=== PATIENT | male | born 1935 | race Caucasian/White ===

== ENCOUNTER 2016-12-03 20:55 | Inpatient (IN) | payer MEDICARE ==
[~2016-12-03] VITALS: Ht 167.6 cm; Wt 70.5 kg
[2016-12-03] MEDS: CHLORHEXIDINE GLUCONATE 2 % 1 PACK (2 CLOTHS)(taper/protocol) TOP SCH (21:55)
[2016-12-03] MEDS: CHLORHEXIDINE GLUCONATE 2 % 1 PACK (2 CLOTHS)(extra cloths) TOP PRN ×2 (21:55→22:59)
[2016-12-03 22:03] VITALS: BP 141/68; PULSE 83; RESP 20; TEMP 98.6; O2SAT 91
[2016-12-03] MEDS: RESP: ALBUTEROL 2.5 MG/IPRATROPIUM 0.5 MG NEB (PRN) NEB (22:25)
[2016-12-03 22:27] VITALS: O2SAT 90
[2016-12-03 23:00] VITALS: PULSE 83
[2016-12-04] VITALS (20 sets, daily range): BP systolic 113–145; BP diastolic 57–72; PULSE 69–88; RESP 20–22; TEMP 98–98.9; O2SAT 87–96
[2016-12-04 00:33] LABS: C. DIFF EPI 027 PRESUMPTIVE NEGATIVE (NEGATIVE); C. DIFF TOXIN PCR NEGATIVE (NEGATIVE)
[2016-12-04] MEDS: RESP: ALBUTEROL 2.5 MG/IPRATROPIUM 0.5 MG NEB (SCH) NEB ×4 (03:41→20:52)
[2016-12-04] MEDS: CHLORHEXIDINE GLUCONATE 2 % 1 PACK (2 CLOTHS)(taper/protocol) TOP SCH (04:00)
--- NOTE | 2016-12-04 04:05 | HHI.HP ---
[facility] Unknown Admission Diagnosis Diagnoses: Chief Complaint: Not able to give specific complaints Travel History International Travel<30 Days: No Contact w/Intl Traveler <30 Da: No Traveled to Known Affected Are: No History of Present Illness History from patient's daughter at the bedside, and transfer notes from [facility]. Patient was admitted to [facility] around November 25, 2016. He was transferred to our hospital last night December 03, 2016. Patient's daughter reported that patient was being managed there for COPD exacerbation with pneumonia. He was also requiring high FiO2 over there for his treatment. She states that he was usually on 10 L nasal cannula. At one point, in the beginning of his stay there, after he received Tessalon Perles for cough, he desaturated quite a bit that he ended up on BiPAP. She reports that also last night, he was saturating around 95-98% initially. He then had another type of cough medicine and ended up desaturating again. He was therefore briefly on BiPAP again. However prior to transfer to our hospital, they were in 4 to many his saturations do a decent level which is 5 L nasal cannular. Patient daughter was curious as to why he had pneumonia. She states that at the [facility] where he resides in [place], several residents where sick with pneumonia and had to be hospitalized. She is unsure whether he caught pneumonia from that. She also was worried about aspiration because he did have 3 times hospitalization for aspiration pneumonia when he was living on his own at another state before moving down to [place] with his daughter. She states that she has had trouble convincing staff members at [facility] to put him on the correct diet consistency. She is questioning whether he had aspiration episodes. Patient also had history of hiatal hernia which is about 4 cm per EGD report. This EGD was done during the hospitalization at [facility]. There was other findings of esophagitis and esophageal diverticulum. Daughter also reported that patient has quite significant hearing impairment. However when she took him to an ENT doctor for evaluation, it was found that he has quite a bit of fluid accumulation in his inner ears and was treated with steroids. She states that after a few days courses of steroids, his hearing would come back. Because of this, he was actually planned to have surgery with ENT doctor. She believes this was for eustachian tubes. However Patient's this surgery was delayed because of his current acute illness. She states that while being hospitalized at [facility], his hearing has gotten worse as well. She is wondering whether his pneumonia is related to these chronic fluid accumulation in his ears with sinus symptoms. Daughter also stated that patient was having severe diarrhea while at [facility]. This happened after getting antibiotics. She stated that she was told it smells like C. difficile as well. She stated he was receiving clindamycin. Patient was not having any Calles catheter there. He was urinating spontaneously. Patient daughter reports that patient's blood pressure was somewhat low borderline over there. However he was not requiring any vasopressors. Patient has history of dementia. He was on Namenda/Aricept combination medicine. She states that these medications were held initially while in hospital. This was resumed only about a day ago or so. She also reports that patient had echocardiogram and CT pulmonary angiogram there. As for as she knows, no abnormal findings. Review of Systems ROS Limitations: Altered Mental Status (patient himself is unable to give review of system.) Past Family Social History Past Medical History Hypertension Hyperlipidemia Dementia BPH COPDon home oxygen 3 L when necessary Hiatal hernia Esophagitis Esophageal diverticulum History of aspiration pneumonia Chronic fluid accumulation in his earswas evaluated by ENT previously. Improved with steroid course. Was planned to have surgery as well. Arthritis Past Surgical History Right hip surgery Reported Medications Patient's medications list sent from [facility] reviewed. Was also a list from the [facility] in chart which was reviewed. Allergies: Uncoded Allergies: cough medicines (Adverse Reaction, Severe, 12/03/16) reactio is mainly made o2 sat go down Family History Denies family history of medical issues Social History used to smoke for about 50yrs no etoh or drug abuse lives at [facility], D's - in [place] Physical Exam Vital Signs Vital Signs Date Time Temp Pulse Resp B/P Pulse Ox O2 Delivery O2 Flow Rate FiO2 12/04/16 02:03 70 20 145/68 93 12/04/16 02:00 70 12/04/16 00:00 69 20 128/62 12/04/16 00:00 83 12/03/16 23:00 83 3/23/17 22:27 90 Simple Mask 7.00 12/03/16 22:03 98.6 83 20 141/68 91 Physical Exam GENERAL: This is a well-nourished, well-developed patient, in no apparent distress.Pleasantly confused, kept asking for time and trying to remember my name; coughing quite a bit, with yellowish productive sputum. Desaturates to about 85% during coughing episodes SKIN: No rashes, ecchymoses or lesions. tactile fever HEAD: Atraumatic. Normocephalic. EYES: No scleral icterus. No injection or drainage. ENT: Nose without bleeding, purulent drainage or septal hematoma. Airway patent.. NECK: Trachea midline. No JVD. Supple, nontender, no meningeal signs. CARDIOVASCULAR: Regular rate and rhythm without murmurs, gallops, or rubs. RESPIRATORY: bilateral good air entry, minimal expiratory wheezing GASTROINTESTINAL: Abdomen soft, non-tender, nondistended. No guarding. MUSCULOSKELETAL: Extremities without clubbing, cyanosis, or edema.. No calf tenderness. NEUROLOGICAL: Awake, pleasantly confused,. Motor and sensory grossly within normal limits. Normal speech. Laboratory Laboratory Tests Test 12/03/16 12/03/16 21:15 22:20 Nasal Screen MRSA (PCR) NEGATIVE Stool C. difficile Toxin (PCR) NEGATIVE Stl C. difficile Toxin PRESUMPTIVE Epiderm 027 NEGATIVE Imaging Last 48 hours Impressions Chest X-Ray 12/04/16 0000 Signed Impressions: Service Date/Time: Sunday, December 04, 2016 04:39 - CONCLUSION: Bibasilar consolidation more pronounced on the left. Alberto Mirza Jr., MD Assessment and Plan Problem List: (1) Pneumonia ICD Code: J18.9 Status: Acute (2) Diarrhea ICD Code: R19.7 Status: Acute (3) Dysphagia ICD Code: R13.10 Status: Acute (4) Hiatal hernia ICD Code: K44.9 Status: Acute Assessment and Plan Impression: Pneumoniaaspiration pneumonia versus healthcare associated pneumonia in a patient who lives in [place]. Was treated with antibiotics for past 7 days at [facility]. Recurrent ear fluid accumulation versus infectionsleading to hearing impairment was initially supposed to undergo surgery and this was delayed due to hospitalization. Diarrheathe patient with recent antibiotics used in hospitalization. Rule out C. difficile Relative hypotensionper patient's daughter's report. Likely secondary to diarrhea. Possible aspiration versus acid reflux symptoms. Had recent EGD while at [facility]. Revealed hiatal hernia of 4 cm, esophagitis, esophageal diverticulum. Dysphagia Hypertension Hyperlipidemia Dementia BPH COPDon home oxygen 3 L when necessary Hiatal hernia Esophagitis Esophageal diverticulum History of aspiration pneumonia Chronic fluid accumulation in his earswas evaluated by ENT previously. Improved with steroid course. Was planned to have surgery as well. Arthritis Plan: Continue oxygen supplementation. With switch to 6 L nasal cannula and try with humidified air. Target O2 sats will be around 90-91%. Watch for CO2 retention. Will avoid sedatives as patient's orders given history that patient does get low O2 sats and required BiPAP for taking some cough medicines while at [facility]. Nebulizer treatments. Patient actually got better after nebulizers and was able to expectorate sputum. Sputum cultures to be sent. In terms of antibiotics, patient was receiving cefepime and clindamycin at [facility]. At this point, I would continue cefepime. We'll adjust with sputum culture results. Repeat chest x-ray today. Reviewed personally. Revealed bilateral pulmonary infiltrates. No pneumothorax. No failure. Would obtain speech and swallow evaluation. For now and keep patient on pured diet with nectar thick liquids. PPI. Ranitidine. I would also consult ENT to evaluate further for his sinus symptoms/recurrent fluid accumulation in his years. These likely could be contributing to his pneumonia. Stool for C. difficile. Stool for cultures. Question whether patient's diarrhea is also caused by his dementia medications such as Namenda and Aricept. I have not started these back yet. Pt takes Namzaric 10/07 per notes. Restart visions home meds. Will monitor BP closely. DVT prophylaxiswith Lovenox. GI prophylaxison pantoprazole. Code Status Full code. Discussed with daughter. Discussed Condition With Patient, daughter at the bedside, patient's nurse Physician Certification 2 Midnight Certification Type: Admission for Inpatient Services Order for Inpatient Services The services are ordered in accordance with Medicare regulations or non- Medicare payer requirements, as applicable. In the case of services not specified as inpatient-only, they are appropriately provided as inpatient services in accordance with the 2-midnight benchmark. Estimated LOS (days): 3 days is the estimated time the patient will need to remain in the hospital, assuming treatment plan goals are met and no additional complications. Post-Hospital Plan: Not yet determined Katherin Mccarthy MD Dec 04, 2016 04:05
--- NOTE | 2016-12-04 05:43 | RADRPT ---
EXAM DATE/TIME: 12/04/2016 04:39 [facility] COMPARISON: No previous studies available for comparison. INDICATIONS : Evaluate for pneumonia. MEDICAL HISTORY : Hypertension. Chronic obstructive pulmonary disease. SURGICAL HISTORY : None. ENCOUNTER: Initial ACUITY: 1 day PAIN SCORE: Non-responsive. LOCATION: Bilateral chest FINDINGS: A single portable frontal view the chest shows areas of bibasilar consolidation more pronounced on th e left. This obscures the left dome of the diaphragm. No effusions. Heart is normal in size. Bony str uctures are unremarkable. CONCLUSION: Bibasilar consolidation more pronounced on the left. Alberto Mirza Jr., MD on December 04, 2016 at 5:40 Board Certified Radiologist. This report was verified electronically.
[2016-12-04 05:55] LABS: AUTOMATED NEUTROPHIL # 6.4 TH/MM3 (1.8-7.7); BASOPHIL % 0.1 % (0.0-2.0); HEMATOCRIT 39.7 % (39.0-51.0); LYMPH % 14.1 % (9.0-44.0); LYMPHOCYTE # 1.1 TH/MM3 (1.0-4.8); MEAN CELL VOLUME 93.6 FL (80.0-100.0); MEAN CORPUSCULAR HEMOGLOBIN 31.7 PG (27.0-34.0); MEAN CORPUSCULAR HGB CONC 33.9 % (32.0-36.0); MONO % 6.7 % (0.0-8.0); NEUT % 79.1 % (16.0-70.0); PLATELET COUNT 201 TH/MM3 (150-450); RED BLOOD COUNT 4.25 MIL/MM3 (4.50-5.90); RED CELL DISTRIBUTION WIDTH 13.6 % (11.6-17.2); WHITE BLOOD COUNT 8.1 TH/MM3 (4.0-11.0)
[2016-12-04 06:08] LABS: INTERNATIONAL NORMALIZED RATIO 1.1 RATIO; PROTHROMBIN TIME - PATIENT 12.7 SEC (9.8-11.6)
[2016-12-04 06:21] LABS: BICARBONATE 30.1 MEQ/L (21.0-32.0); POTASSIUM 3.5 MEQ/L (3.5-5.1)
[2016-12-04 06:28] LABS: HEMO FLAGS AUTO DIFF
[2016-12-04 07:12] LABS: BANDS 1 % (0-6); NEUTROPHIL # MANUAL DIFF 6.3 TH/MM3 (1.8-7.7); PLATELET ESTIMATE SMEAR NORMAL (NORMAL); PLATELET MORPHOLOGY NORMAL (NORMAL); POLYS (SEG NEUTROPHILS) 77 % (16-70); WBC DIFF SAMPLE 100
[2016-12-04 07:13] LABS: SCAN/DIFF FINAL DIFF MANUAL
[2016-12-04] MEDS: amLODIPine BESYLATE 5 MG TAB PO SCH (08:21)
[2016-12-04] MEDS: DIVALPROEX SODIUM E.R. 250 MG TAB PO SCH (08:21)
[2016-12-04] MEDS: LACTOBACILLUS ACIDOPHILUS TAB PO SCH ×3 (08:21→18:00)
[2016-12-04] MEDS: FAMOTIDINE 20 MG TAB PO SCH ×2 (08:22→19:34)
[2016-12-04] MEDS: ESCITALOPRAM OXALATE 10 MG TAB PO SCH (08:26)
[2016-12-04] MEDS: TAMSULOSIN HCL 0.4 MG CAP PO SCH (08:27)
[2016-12-04] MEDS ORDERED: PILL SPLITTER OTHER PRN (08:30)
[2016-12-04] MEDS: CEFEPIME INJ 2,000 MG in SODIUM CHLORIDE 0.9% INJ 100 ML IV SCH ×2 (09:00→19:33)
[2016-12-04] MEDS: ENOXAPARIN SODIUM 40 MG/0.4 ML SYRINGE SQ SCH (09:00)
--- NOTE | 2016-12-04 14:21 | HHI.PR ---
Addendum to Inpatient Note Addendum Reason: Additional Documentation Additional Information Patient seen and examined. Discussed with his daughter at bedside. He has dementia. She reports it appears that he is becoming more agitated today. He has not been sleeping over the past few days. He still requiring 6 L of oxygen on a nasal cannula. Patient was living in a shelter facility prior to hospital admission. GENERAL: Frail elderly male, demented.. CARDIOVASCULAR: Normal rate and regular rhythm without murmurs, gallops, or rubs. RESPIRATORY: Diminished breath sounds bilaterally. Some coarse rhonchi bilaterally. GASTROINTESTINAL: Abdomen soft, non-tender, non-distended. Normal active bowel sounds MUSCULOSKELETAL: Extremities without cyanosis, or edema. NEURO: Alert to self only. Moves all ext x4 PSYCH: Anxious 81-year-old male admitted for COPD exacerbation and bilateral pneumonia from an outside hospital. We'll continue treatment with IV antibiotics, breathing treatments, supplemental oxygen as needed. He is being treated for healthcare associated pneumonia, will add Levaquin to cefepime. He does have behavioral agitation related to dementia. Her daughter wants to be very cautious with sedating medications. Will order low-dose Haldol to be used as needed only for agitation. Continue Seroquel. Jozef Henning MD Dec 04, 2016 14:21
[2016-12-04] MEDS ORDERED: HALOPERIDOL LACTATE 5 MG/ML AMP IM PRN (14:30)
[2016-12-04] MEDS: LEVOFLOXACIN 750 MG PREMIX INJ 150 ML IV SCH (15:12)
[2016-12-04] MEDS: QUEtiapine FUMARATE 25 MG TAB PO SCH (19:34)
[2016-12-05] VITALS (17 sets, daily range): BP systolic 104–132; BP diastolic 56–61; PULSE 67–111; RESP 20–28; TEMP 98–99.2; O2SAT 78–94
[2016-12-05] MEDS: RESP: ALBUTEROL 2.5 MG/IPRATROPIUM 0.5 MG NEB (SCH) NEB ×4 (04:11→20:50)
[2016-12-05] MEDS: CEFEPIME INJ 2,000 MG in SODIUM CHLORIDE 0.9% INJ 100 ML IV SCH ×2 (10:24→19:44)
[2016-12-05] MEDS: LACTOBACILLUS ACIDOPHILUS TAB PO SCH ×3 (10:25→17:33)
[2016-12-05] MEDS: DIVALPROEX SODIUM E.R. 250 MG TAB PO SCH (10:25)
[2016-12-05] MEDS: TAMSULOSIN HCL 0.4 MG CAP PO SCH (10:25)
[2016-12-05] MEDS: ESCITALOPRAM OXALATE 10 MG TAB PO SCH (10:26)
[2016-12-05] MEDS: FAMOTIDINE 20 MG TAB PO SCH ×2 (10:27→19:44)
[2016-12-05] MEDS: ENOXAPARIN SODIUM 40 MG/0.4 ML SYRINGE SQ SCH (10:27)
[2016-12-05] MEDS: amLODIPine BESYLATE 5 MG TAB PO SCH (10:27)
--- NOTE | 2016-12-05 11:22 | HHI.PR ---
Subjective Remarks Discussed with the patient's daughter and RN. He had a nosebleed earlier this morning. Otherwise he reports that his breathing is better. He is still requiring 5 L of oxygen on nasal cannula. Objective Vitals Vital Signs Date Time Temp Pulse Resp B/P Pulse Ox O2 Delivery O2 Flow Rate FiO2 12/05/16 06:03 98.9 78 20 132/61 12/05/16 06:00 69 12/05/16 04:00 67 12/05/16 02:03 68 94 12/05/16 02:00 80 12/05/16 00:00 80 12/04/16 22:03 98.9 81 20 132/61 87 12/04/16 22:00 82 12/04/16 20:55 91 Nasal Cannula 6.00 12/04/16 20:00 81 12/04/16 18:03 98.6 88 22 113/72 96 12/04/16 18:00 86 12/04/16 16:00 86 12/04/16 14:03 98.2 77 20 113/57 96 12/04/16 14:00 86 12/04/16 12:00 86 I/O 12/04/16 12/04/16 12/04/16 12/05/16 12/05/16 12/05/16 07:00 15:00 23:00 07:00 15:00 23:00 Intake Total 250 ml 582 ml 200 ml 295 ml Output Total 3 ml Balance 250 ml 579 ml 200 ml 295 ml Intake Oral 250 ml 480 ml 200 ml 200 ml IV Total 102 ml 95 ml Output Stool Total 3 ml # Voids 3 2 2 2 # Bowel Movements 3 Result Diagram: 12/04/16 0422 12/04/16 0422 Imaging Last Impressions Chest X-Ray 12/04/16 0000 Signed Impressions: Service Date/Time: Sunday, December 04, 2016 04:39 - CONCLUSION: Bibasilar consolidation more pronounced on the left. Alberto Mirza Jr., MD Objective Remarks GENERAL: Frail elderly male, demented.. CARDIOVASCULAR: Normal rate and regular rhythm without murmurs, gallops, or rubs. ENT: There is dried blood in the right nares. Airway is clear RESPIRATORY: Diminished breath sounds bilaterally. Infant and diffuse rhonchi. Otherwise clear to auscultation. No wheezing. GASTROINTESTINAL: Abdomen soft, non-tender, non-distended. Normal active bowel sounds MUSCULOSKELETAL: Extremities without cyanosis, or edema. NEURO: Alert to self only. Moves all ext x4 PSYCH: Calm A/P Problem List: (1) Pneumonia ICD Code: J18.9 Status: Acute (2) Diarrhea ICD Code: R19.7 Status: Acute (3) Dysphagia ICD Code: R13.10 Status: Acute (4) Hiatal hernia ICD Code: K44.9 Status: Acute Assessment and Plan 81-year-old male admitted for COPD exacerbation and bilateral pneumonia from an outside hospital. Respiratory failure secondary to Pneumonia: Still requiring 5 L of oxygen. At risk for decompensation given age and comorbid conditions. We'll continue treatment with IV antibiotics, breathing treatments, supplemental oxygen as needed. He is being treated for healthcare associated pneumonia, continue Levaquin and cefepime. Nosebleed: X1, probably related to drying effect of oxygen via nasal cannula. Advised nursing to use the mask as tolerated. - Will add Flonase to help decrease inflammation Dementia with behavioral disturbances:. Her daughter wants to be very cautious with sedating medications. - Low-dose Haldol to be used as needed only for agitation. Continue Seroquel and Depakote. Recurrent ear fluid accumulation versus infectionsleading to hearing impairment was initially supposed to undergo surgery and this was delayed due to hospitalization. ENT was consulted from the ED. Dysphagia: Improved. Had recent EGD while at [facility]. Revealed hiatal hernia of 4 cm, esophagitis, esophageal diverticulum. - Speech therapy following. Tolerating his diet. BPH: Continue Flomax. GI prophylaxis: Pepcid. DVT PPx: Lovenox Discussed with the patient's daughter at length. All questions answered. Discharge Planning Continue care in the ICU. Jozef Henning MD Dec 05, 2016 11:22
[2016-12-05] MEDS: FLUTICASONE PROPIONATE 50 MCG/ACT 16 GM NASAL SPRAY NASAL SCH ×2 (13:35→19:37)
[2016-12-05] MEDS: LEVOFLOXACIN 750 MG PREMIX INJ 150 ML IV SCH (16:21)
[2016-12-05] MEDS: CHLORHEXIDINE GLUCONATE 2 % 1 PACK (2 CLOTHS)(taper/protocol) TOP SCH (19:37)
[2016-12-05] MEDS: QUEtiapine FUMARATE 25 MG TAB PO SCH (19:44)
[2016-12-05] MEDS: RESP: ALBUTEROL 2.5 MG/IPRATROPIUM 0.5 MG NEB (PRN) NEB (23:40)
[2016-12-05 23:59] LABS: BLOOD GAS BASE EXCESS 0.5 mmol/L (-2-2); BLOOD GAS CARBOXYHEMOGLOBIN 0.7 % (0-4); BLOOD GAS HCO3 26 mmol/L (22-26); BLOOD GAS O2 HGB SATURATION 91 % (90-100); BLOOD GAS OXYGEN CONTENT 19.8 Vol % (12.0-20.0); BLOOD GAS PCO2 52 mmHg (38-42); BLOOD GAS PO2 81 mmHg (61-120); BLOOD GAS TOTAL HGB 15.4 G/DL (12.0-16.0); TEMP CORR TO 98.6
[2016-12-06] VITALS (19 sets, daily range): BP systolic 92–189; BP diastolic 55–87; PULSE 70–99; RESP 20–28; TEMP 97.8–98.6; O2SAT 87–100
[2016-12-06] LABS: CRITICAL VALUE YES; DRAW SITE LT RADIAL; FIO2 100 %; NUMBER OF ARTERIAL PUNCTURES 1; OXYGEN DEVICE BIPAP; STAT YES; ULNAR PULSE PRESENT; VENT SETTINGS IPAP15/EPAP8
--- NOTE | 2016-12-06 00:18 | RADRPT ---
EXAM DATE/TIME: 12/05/2016 23:48 [facility] COMPARISON: CHEST SINGLE AP, December 04, 2016, 4:39. INDICATIONS : Respiratory distress. MEDICAL HISTORY : None. SURGICAL HISTORY : None. ENCOUNTER: Subsequent ACUITY: 2 days PAIN SCORE: Non-responsive. LOCATION: Bilateral chest FINDINGS: A single portable frontal view of the chest shows resolution of the bibasilar consolidations. There i s an interstitial prominence to the entire left lung which is a new finding. Linear atelectasis withi n the right lung base. No effusions. Heart is normal in size. High riding humeral heads bilaterally. CONCLUSION: Resolution of the basilar consolidations. Diffuse interstitial prominence now seen throughout the lef t lung. Alberto Mirza Jr., MD on December 06, 2016 at 0:15 Board Certified Radiologist. This report was verified electronically.
[2016-12-06] MEDS: RESP: ALBUTEROL 2.5 MG/IPRATROPIUM 0.5 MG NEB (SCH) NEB ×5 (03:39→23:46)
[2016-12-06 06:40] LABS: POTASSIUM 3.8 MEQ/L (3.5-5.1)
[2016-12-06 07:05] LABS: HEMATOCRIT 40.8 % (39.0-51.0); MEAN CELL VOLUME 93.6 FL (80.0-100.0); MEAN CORPUSCULAR HEMOGLOBIN 31.5 PG (27.0-34.0); MEAN CORPUSCULAR HGB CONC 33.7 % (32.0-36.0); PLATELET COUNT 180 TH/MM3 (150-450); RED BLOOD COUNT 4.36 MIL/MM3 (4.50-5.90); RED CELL DISTRIBUTION WIDTH 13.7 % (11.6-17.2); REVIEW FLAG FINAL; WHITE BLOOD COUNT 12.7 TH/MM3 (4.0-11.0)
[2016-12-06] MEDS: FLUTICASONE PROPIONATE 50 MCG/ACT 16 GM NASAL SPRAY NASAL SCH ×2 (10:39→21:00)
[2016-12-06] MEDS: CEFEPIME INJ 2,000 MG in SODIUM CHLORIDE 0.9% INJ 100 ML IV SCH ×2 (10:39→20:18)
[2016-12-06] MEDS: FAMOTIDINE 20 MG TAB PO SCH ×2 (10:40→20:18)
[2016-12-06] MEDS: DIVALPROEX SODIUM E.R. 250 MG TAB PO SCH (10:40)
[2016-12-06] MEDS: amLODIPine BESYLATE 5 MG TAB PO SCH (10:40)
[2016-12-06] MEDS: ESCITALOPRAM OXALATE 10 MG TAB PO SCH (10:40)
[2016-12-06] MEDS: TAMSULOSIN HCL 0.4 MG CAP PO SCH (10:40)
[2016-12-06] MEDS: LACTOBACILLUS ACIDOPHILUS TAB PO SCH ×3 (10:40→17:22)
[2016-12-06] MEDS: ENOXAPARIN SODIUM 40 MG/0.4 ML SYRINGE SQ SCH (10:41)
[2016-12-06] MEDS: LEVOFLOXACIN 750 MG PREMIX INJ 150 ML IV SCH (14:03)
[2016-12-06] MEDS ORDERED: DEXTROSE 50% IN WATER 50 ML VIAL(D50) IV PUSH PRN (15:30)
[2016-12-06] MEDS ORDERED: GLUCAGON 1 MG/ML VIAL OTHER PRN (15:30)
[2016-12-06 15:33] LABS: BLOOD GAS BASE EXCESS 3.6 mmol/L (-2-2); BLOOD GAS CARBOXYHEMOGLOBIN 1.6 % (0-4); BLOOD GAS HCO3 27 mmol/L (22-26); BLOOD GAS METHEMOGLOBIN 1.1 % (0-2); BLOOD GAS O2 HGB SATURATION 82 % (90-100); BLOOD GAS OXYGEN CONTENT 15.4 Vol % (12.0-20.0); BLOOD GAS PCO2 34 mmHg (38-42); BLOOD GAS PO2 51 mmHg (61-120); BLOOD GAS TOTAL HGB 13.3 G/DL (12.0-16.0); TEMP CORR TO 98.6
[2016-12-06 15:34] LABS: CRITICAL VALUE YES
[2016-12-06] MEDS: methylPREDNISolone SOD SUCC 40 MG/1 ML VIAL IV PUSH SCH ×2 (15:43→20:18)
[2016-12-06] MEDS: SODIUM CHLOR 0.9% 1000 ML INJ 1,000 ML IV SCH (15:43)
[2016-12-06] MEDS: INSULIN NovoLIN REGULAR SUPPLEMENTAL SCALE SQ SCH ×2 (15:45→20:00)
--- NOTE | 2016-12-06 16:06 | MB ---
cc: NGOC HEBERT M.D. DATE OF CONSULTATION: 12/06/2016. REASON FOR CONSULTATION: HISTORY OF PRESENT ILLNESS: The patient is an 81-year-old male with past medical history of COPD on 3 liters home oxygen p.r.n., hypertension, hyperlipidemia and dementia, benign prostate hypertrophy and history of aspiration pneumonia. He was admitted to [facility] on December 04 after he was transferred from [facility] per the daughter's request for COPD exacerbation and pneumonia. The patient was placed on bronchodilators and broad-spectrum antibiotics. A chest x-ray on admission showed bibasilar consolidation more pronounced on the left. Repeat chest x-ray was performed yesterday which showed resolution of the basilar consolidation. However, diffuse interstitial prominence was noted seen throughout the left lung. The patient had an ABG on BiPAP 15/8 at 100% last night which showed mild acute hypercapnic respiratory and hypoxemic acidosis with a pH of 7.32, CO2 52, pAO2 81, bicarb 26 and saturation of 91%. He was taken off BiPAP early this morning and is currently on 50% Ventimask with saturation of 89% to 90%. The patient is awake and alert. He is out of bed and sitting in chair in mild distress. He is afebrile. Most of the history was obtained from reviewing medical records and from my discussion with the daughter. Patient is a poor historian due to his underlying dementia. He is currently being treated for pneumonia with cefepime and Levaquin.. PAST MEDICAL HISTORY: His past medical history is significant for: 1. COPD on home oxygen PRN. 2. Hypertension. 3. Hyperlipidemia. 4. Dementia. 5. Benign prostate hypertrophy. 6. Hiatal hernia. 7. Esophagitis. 8. History of aspiration pneumonia. 9. Arthritis. PAST SURGICAL HISTORY: Previous right hip surgery. MEDICATIONS: Current medications include: 1. Cefepime. 2. Levaquin. 3. Amlodipine. 4. Depakote. 5. Flonase. 6. Pepcid. 7. Seroquel. 8. Flomax. 9. Lovenox subcutaneous. FAMILY HISTORY: Noncontributory. SOCIAL HISTORY: The patient quit smoking 4 years ago. He used to smoke for about 50 years. No EtOH use. Lives at the assisted living facility. REVIEW OF SYSTEMS: The review of systems is as per the history of present illness, and the rest of the review of systems is unremarkable. PHYSICAL EXAMINATION: GENERAL: An 81-year-old male well-nourished sitting up in a chair in mild distress on 50% VentiMask with saturation of 89% to 90%. VITAL SIGNS: Afebrile with temperature of 98.3, pulse of 95, blood pressure 95/64, saturation 99% on 50% VentiMask. HEAD, EYES, EARS, NOSE, THROAT: Normocephalic and atraumatic. Pupils equal, round and reactive to light and accommodation. Extraocular muscles intact. Conjunctivae are pink. Nonicteric sclerae. Oral mucosa within normal limits. NECK: The neck is supple. No jugular venous distention, adenopathy or thyromegaly. Trachea in the midline. CARDIOVASCULAR: Regular rate and rhythm. Normal S1-S2. No murmurs, rubs or gallops noted. PULMONARY: Bilateral equal air entry with a few coarse breath sounds. Diminished. ABDOMEN: The abdomen is soft, nontender and no distention. Positive bowel sounds. EXTREMITIES: No cyanosis, clubbing or edema. NEUROLOGIC: No focal sensory deficit. LABORATORY DATA: Sodium 137, potassium 3.8, chloride 96, carbon dioxide 30, BUN 13, creatinine 0.87, glucose 96, WBCs 12.7, hemoglobin 13.7, hematocrit 40, platelet count 180,000. INR 1.1. PT 12.7. Sputum culture from December 04 showed normal respiratory alejandra. RADIOGRAPHIC STUDIES: Chest x-ray from yesterday showed resolution of basal consolidation and diffuse interstitial prominence seen throughout the left lung. IMPRESSION: 1. Acute hypercapnic and hypoxemic respiratory failure. 2. COPD exacerbation. 3. Hypertension. 4. Dementia. 5. Hyperlipidemia. 6. History of aspiration pneumonia. 7. History of arthritis. RECOMMENDATIONS: 1. Monitor neuro status closely and avoid any sedatives. 2. Continue with oxygen and maintain saturations above 92%. 3. Bronchodilators in the form of DuoNeb q. 6 plus q. 2 PRN for shortness of breath. In addition, will add Pulmicort nebulizers q. 12, Symbicort 160/4.5 2 + q 12 hours. 4. Start IV steroids in the form of Solu-Medrol 60 milligrams IV q. 8. 5. Noninvasive positive pressure ventilation PRN for respiratory distress. 6. Will obtain a CT pulmonary angiogram of the chest to rule out pulmonary embolism. 7. Will repeat ABG now and if there is any worsening in clinical status or respiratory acidosis, will proceed with intubation and mechanical ventilation. 8. Monitor heart rate and blood pressure closely and maintain MAP greater than 65 mmHg. He is on Norvasc 5 milligrams daily. Will hold given borderline low blood pressure. 9. Monitor renal function, intake and output and electrolyte replacement per protocol. 10. Will place on IV fluids in the form of normal saline at 70 mL/hour. 11. Keep NPO for now until the respiratory status improves. 12. Continue with Pepcid 20 milligrams q. 12. 13. He was evaluated by speech earlier today and was placed on a mechanical soft diet. 14. Continue with antibiotics in the form of Cefepime and Levaquin and monitor for signs of infection, which include fever and WBCs. 15. Sputum culture from December 04 showed normal respiratory alejandra. 16. Will check Strep pneumoniae and Legionella urinary antigens. 17. Monitor CBC. 18. Place on sliding scale insulin with Accu-Chek q. 4 hour for glycemic control as the patient will be on IV steroids. 19. Monitor CBC. 20. GI prophylaxis with Pepcid 20 milligrams q. 12. 21. DVT prophylaxis with SCDs and Lovenox 40 milligrams subcutaneous daily. The case was discussed with the patient's daughter who was present at the bedside and with intensive care unit nursing staff. Further recommendations will be based on the hospital course. Level 4. MD JAIRON Viramontes/TOM /3:26 PM /3:52 PM
[2016-12-06] MEDS ORDERED: IOHEXOL 350 MG/ML 10 ML VIAL (for RAD DIAG) IV ONE (17:01)
--- NOTE | 2016-12-06 17:31 | RADRPT ---
EXAM DATE/TIME: 12/06/2016 16:54 [facility] COMPARISON: No previous studies available for comparison. INDICATIONS : Short of breath. Evaluate for embolism. IV CONTRAST: 70 cc Omnipaque 350 (iohexol) IV RADIATION DOSE: 20.80 CTDIvol (mGy) MEDICAL HISTORY : Hypertension. Hernia. SURGICAL HISTORY : None. ENCOUNTER: Initial ACUITY: 1 day PAIN SCALE: 0/10 LOCATION: Bilateral chest TECHNIQUE: Volumetric scanning of the chest was performed using a pulmonary embolism protocol MIP images were re constructed. Using automated exposure control and adjustment of the mA and/or kV according to patien t size, radiation dose was kept as low as reasonably achievable to obtain optimal diagnostic quality images. FINDINGS: No filling defects identified to suggest pulmonary embolic disease. There is dense consolidation and atelectasis in the left lower lobe and subsegmental airspace disease in the right lower lobe and righ t middle lobe. There is at least partial obstruction left lower lobe bronchus. Minimal patchy opacity in upper lobes. There is trace pleural fluid bilaterally. Trace pericardial fluid. No adenopathy. No acute findings i n the upper abdomen. CONCLUSION: 1. Negative for pulmonary embolus. 2. Dense consolidation left lower lobe with at least partial obstruction of the left lower lobe bronc hus. This could be from mucoid impaction. A single airspace disease in the remainder of the lungs. 3. Partially calcified pleural plaques likely from prior asbestos exposure. Previous left rib fractur es. Max Raymundo MD on December 06, 2016 at 17:23 Board Certified Radiologist. This report was verified electronically.
[2016-12-06] MEDS: RESP: BUDESONIDE 0.5 MG/2 ML NEB NEB SCH (19:33)
[2016-12-06] MEDS: QUEtiapine FUMARATE 25 MG TAB PO SCH (20:18)
[2016-12-06 20:57] LABS: BLOOD GAS BASE EXCESS 2.7 mmol/L (-2-2); BLOOD GAS CARBOXYHEMOGLOBIN 1.3 % (0-4); BLOOD GAS HCO3 26 mmol/L (22-26); BLOOD GAS O2 HGB SATURATION 93 % (90-100); BLOOD GAS OXYGEN CONTENT 17.9 Vol % (12.0-20.0); BLOOD GAS PCO2 37 mmHg (38-42); BLOOD GAS PO2 84 mmHg (61-120); BLOOD GAS TOTAL HGB 13.6 G/DL (12.0-16.0); TEMP CORR TO 98.6
[2016-12-06 20:58] LABS: CRITICAL VALUE NO; DRAW SITE RT RADIAL; FIO2 100 %; NUMBER OF ARTERIAL PUNCTURES 1; STAT NO; ULNAR PULSE PRESENT
[2016-12-06] MEDS: BUDESONIDE-FORMOTEROL 160/4.5 MCG INHALER INH SCH (21:00)
[2016-12-06 23:55] LABS: BLOOD, URINE NEG (NEG); COMMENT (UR) CATH-CULT NOT IND; CULTURE IF INDICATED CATH CULTURE NOT IND; GLUCOSE,URINE NEG (NEG); KETONE, URINE NEG (NEG); NITRITE,URINE NEG (NEG); PH, URINE 7.5 (5.0-8.5); URINE COLOR YELLOW (YELLW/STRAW)
[2016-12-07] VITALS (15 sets, daily range): BP systolic 99–135; BP diastolic 52–67; PULSE 60–88; RESP 18–26; TEMP 97.7–98.3; O2SAT 86–98
[2016-12-07] MEDS: RESP: ALBUTEROL 2.5 MG/IPRATROPIUM 0.5 MG NEB (SCH) NEB ×6 (03:57→23:46)
[2016-12-07] MEDS: CHLORHEXIDINE GLUCONATE 2 % 1 PACK (2 CLOTHS)(taper/protocol) TOP SCH (04:00)
[2016-12-07] MEDS: INSULIN NovoLIN REGULAR SUPPLEMENTAL SCALE SQ SCH ×5 (04:00→16:00)
[2016-12-07 06:53] LABS: DRAW SITE NURSE; STAT NO
[2016-12-07 07:09] LABS: AUTOMATED NEUTROPHIL # 9.5 TH/MM3 (1.8-7.7); BASOPHIL % 0.1 % (0.0-2.0); HEMATOCRIT 39.8 % (39.0-51.0); HEMO FLAGS DIFF FINAL; LYMPH % 7.2 % (9.0-44.0); LYMPHOCYTE # 0.8 TH/MM3 (1.0-4.8); MEAN CELL VOLUME 94.1 FL (80.0-100.0); MEAN CORPUSCULAR HEMOGLOBIN 31.1 PG (27.0-34.0); MEAN CORPUSCULAR HGB CONC 33.1 % (32.0-36.0); MONO % 2.9 % (0.0-8.0); NEUT % 89.8 % (16.0-70.0); PLATELET COUNT 157 TH/MM3 (150-450); RED BLOOD COUNT 4.22 MIL/MM3 (4.50-5.90); RED CELL DISTRIBUTION WIDTH 13.9 % (11.6-17.2); WHITE BLOOD COUNT 10.6 TH/MM3 (4.0-11.0)
[2016-12-07 07:28] LABS: BICARBONATE 28.2 MEQ/L (21.0-32.0); MAGNESIUM 2.4 MG/DL (1.5-2.5); POTASSIUM 4.5 MEQ/L (3.5-5.1)
[2016-12-07] MEDS: RESP: BUDESONIDE 0.5 MG/2 ML NEB NEB SCH ×2 (07:29→19:32)
[2016-12-07] MEDS: SODIUM CHLOR 0.9% 1000 ML INJ 1,000 ML IV SCH ×2 (08:10→20:06)
[2016-12-07] MEDS: DIVALPROEX SODIUM E.R. 250 MG TAB PO SCH (08:36)
[2016-12-07] MEDS: LACTOBACILLUS ACIDOPHILUS TAB PO SCH ×3 (08:36→17:56)
[2016-12-07] MEDS: FAMOTIDINE 20 MG TAB PO SCH ×2 (08:36→21:00)
[2016-12-07] MEDS: ESCITALOPRAM OXALATE 10 MG TAB PO SCH (08:36)
[2016-12-07] MEDS: TAMSULOSIN HCL 0.4 MG CAP PO SCH (08:36)
[2016-12-07] MEDS: CEFEPIME INJ 2,000 MG in SODIUM CHLORIDE 0.9% INJ 100 ML IV SCH (08:37)
[2016-12-07] MEDS: ENOXAPARIN SODIUM 40 MG/0.4 ML SYRINGE SQ SCH (08:39)
[2016-12-07] MEDS: BUDESONIDE-FORMOTEROL 160/4.5 MCG INHALER INH SCH ×2 (08:42→21:00)
[2016-12-07] MEDS: FLUTICASONE PROPIONATE 50 MCG/ACT 16 GM NASAL SPRAY NASAL SCH ×2 (08:43→21:00)
--- NOTE | 2016-12-07 08:45 | HHI.CCPN ---
Subjective Remarks/Hospital Course The patient is an 81-year-old male with past medical history of COPD on 3 liters home oxygen p.r.n., hypertension, hyperlipidemia and dementia, benign prostate hypertrophy and history of aspiration pneumonia. He was admitted to [facility] on December 04 after he was transferred from [facility] per the daughter's request for COPD exacerbation and pneumonia. The patient was placed on bronchodilators and broad-spectrum antibiotics. A chest x-ray on admission showed bibasilar consolidation more pronounced on the left. Repeat chest x-ray was performed yesterday which showed resolution of the basilar consolidation. However, diffuse interstitial prominence was noted seen throughout the left lung. The patient had an ABG on BiPAP 15/8 at 100% last night which showed mild acute hypercapnic respiratory and hypoxemic acidosis with a pH of 7.32, CO2 52, pAO2 81, bicarb 26 and saturation of 91%. He was taken off BiPAP early this morning and is currently on 50% Ventimask with saturation of 89% to 90%. The patient is awake and alert. He is out of bed and sitting in chair in mild distress. He is afebrile. Most of the history was obtained from reviewing medical records and from my discussion with the daughter. Patient is a poor historian due to his underlying dementia. He is currently being treated for pneumonia with cefepime and Levaquin. 12/07 Patient was on BIPAP 10/5 with 40% FIO2 overnight. CTA chest showed no PE. Objective Vital Signs Date Time Temp Pulse Resp B/P Pulse Ox O2 Delivery O2 Flow Rate FiO2 12/07/16 06:00 60 12/07/16 04:00 97.7 21 135/67 94 12/07/16 04:00 Bi-Pap 40 12/05/16 20:50 6.00 Intake and Output 12/06/16 12/06/16 12/07/16 08:00 16:00 00:00 Intake Total 700 ml 942 ml 160 ml Output Total 900 ml 400 ml Balance -200 ml 542 ml 160 ml Result Diagram: 12/07/1651112/07/16511 Other Results Laboratory Tests Test 12/06/16 12/06/16 12/06/16 12/07/16 15:28 20:51 23:20 05:12 Blood Gas Puncture Site NURSE RT RADIAL Blood Gas Patient Temperature 98.6 98.6 Blood Gas HCO3 27 mmol/L 26 mmol/L Blood Gas Base Excess 3.6 mmol/L 2.7 mmol/L Blood Gas Oxygen Saturation 82 % 93 % Arterial Blood pH 7.51 7.47 Arterial Blood Partial 34 mmHg 37 mmHg Pressure CO2 Arterial Blood Partial 51 mmHg 84 mmHg Pressure O2 Arterial Blood Oxygen Content 15.4 Vol % 17.9 Vol % Arterial Blood 1.6 % 1.3 % Carboxyhemoglobin Arterial Blood Methemoglobin 1.1 % 1.0 % Blood Gas Hemoglobin 13.3 G/DL 13.6 G/DL Oxygen Delivery Device BIPAP Blood Gas Inspired Oxygen 100 % Urine Color YELLOW Urine Turbidity CLEAR Urine pH 7.5 Urine Specific [place] 1.027 Urine Protein TRACE mg/dL Urine Glucose (UA) NEG mg/dL Urine Ketones NEG mg/dL Urine Occult Blood NEG Urine Nitrite NEG Urine Bilirubin NEG Urine Urobilinogen LESS THAN 2.0 MG/DL Urine Leukocyte Esterase NEG Urine RBC LESS THAN 1 /hpf Urine WBC LESS THAN 1 /hpf Microscopic Urinalysis Comment CATH-CULT NOT IND White Blood Count 10.6 TH/MM3 Red Blood Count 4.22 MIL/MM3 Hemoglobin 13.1 GM/DL Hematocrit 39.8 % Mean Corpuscular Volume 94.1 FL Mean Corpuscular Hemoglobin 31.1 PG Mean Corpuscular Hemoglobin 33.1 % Concent Red Cell Distribution Width 13.9 % Platelet Count 157 TH/MM3 Mean Platelet Volume 8.0 FL Neutrophils (%) (Auto) 89.8 % Lymphocytes (%) (Auto) 7.2 % Monocytes (%) (Auto) 2.9 % Eosinophils (%) (Auto) 0.0 % Basophils (%) (Auto) 0.1 % Neutrophils # (Auto) 9.5 TH/MM3 Lymphocytes # (Auto) 0.8 TH/MM3 Monocytes # (Auto) 0.3 TH/MM3 Eosinophils # (Auto) 0.0 TH/MM3 Basophils # (Auto) 0.0 TH/MM3 CBC Comment DIFF FINAL Differential Comment Sodium Level 138 MEQ/L Potassium Level 4.5 MEQ/L Chloride Level 101 MEQ/L Carbon Dioxide Level 28.2 MEQ/L Anion Gap 9 MEQ/L Blood Urea Nitrogen 17 MG/DL Creatinine 0.89 MG/DL Estimat Glomerular Filtration 82 ML/MIN Rate Random Glucose 136 MG/DL Calcium Level 8.6 MG/DL Phosphorus Level 2.6 MG/DL Magnesium Level 2.4 MG/DL Imaging Last Impressions CT Angiography 12/06/16 0000 Signed Impressions: Service Date/Time: Tuesday, December 06, 2016 16:54 - CONCLUSION: 1. Negative for pulmonary embolus. 2. Dense consolidation left lower lobe with at least partial obstruction of the left lower lobe bronchus. This could be from mucoid impaction. A single airspace disease in the remainder of the lungs. 3. Partially calcified pleural plaques likely from prior asbestos exposure. Previous left rib fractures. Max Raymundo MD Chest X-Ray 12/05/16 0000 Signed Impressions: Service Date/Time: Monday, December 05, 2016 23:48 - CONCLUSION: Resolution of the basilar consolidations. Diffuse interstitial prominence now seen throughout the left lung. Alberto Mirza Jr., MD Objective Remarks GENERAL: Patient is 81 yo lying in bed on BIPAP SKIN: Warm and dry. HEAD: Normocephalic. EYES: No scleral icterus. No injection or drainage. NECK: Supple, trachea midline. No JVD or lymphadenopathy. CARDIOVASCULAR: Regular rate and rhythm without murmurs, gallops, or rubs. RESPIRATORY: Breath sounds equal bilaterally. Few coarse BS GASTROINTESTINAL: Abdomen soft, non-tender, nondistended. MUSCULOSKELETAL: No cyanosis, or edema. Neuro: Awake and alert. A/P Assessment and Plan 1. Acute hypercapnic and hypoxemic respiratory failure. 2. COPD exacerbation. 3. Hypertension. 4. Dementia. 5. Hyperlipidemia. 6. History of aspiration pneumonia. 7. History of arthritis. Plan Neuro: Monitor neuro status closely and avoid any sedatives. Pulm: Continue with oxygen and maintain saturations >92%. Bronchodilators, Pulmicort nebulizers q. 12, Symbicort 160/4.5 2puffs q 12 hours. Solu-Medrol 60 milligrams IV q. 8. NIPPV PRN for respiratory distress. CTA chest: Negative for PE. Dense consolidation left lower lobe with at least partial obstruction of the left lower lobe bronchus. This could be from mucoid impaction. A single airspace disease in the remainder of the lungs. Partially calcified pleural plaques likely from prior asbestos exposure Pulm eval patient is likely high risk for bronch given his resp status. CV: Monitor HR and BP and maintain MAP >65mmHg : Monitor renal function, intake and output and electrolyte replacement per protocol. On NS @ 70 mL/hour. GI: On PO diet, on Pepcid 20 milligrams q. 12. ID: Continue with abx(Cefepime and Levaquin) and monitor for signs of infection ( fever and WBCs). Sputum culture 12/04 normal respiratory alejandra. Follow up on Strep pneumoniae and Legionella urinary antigens. Heme: Monitor CBC. Endo: SSI with Accu-Chek q. 4 hour for glycemic c GI prophylaxis with Pepcid 20 milligrams q. 12. DVT prophylaxis with SCDs and Lovenox 40 mg sq daily Level 3 Yoandy Irvin MD Dec 07, 2016 08:45
[2016-12-07] MEDS: methylPREDNISolone SOD SUCC 40 MG/1 ML VIAL IV PUSH SCH ×3 (09:10→22:00)
[2016-12-07] MEDS: LEVOFLOXACIN 750 MG PREMIX INJ 150 ML IV SCH (14:08)
[2016-12-07] MEDS: RESP: ALBUTEROL 2.5 MG/IPRATROPIUM 0.5 MG NEB (PRN) NEB (20:46)
[2016-12-07] MEDS: QUEtiapine FUMARATE 25 MG TAB PO SCH (21:00)
[2016-12-07 21:15] LABS: BLOOD GAS BASE EXCESS -1.7 mmol/L (-2-2); BLOOD GAS HCO3 23 mmol/L (22-26); BLOOD GAS O2 HGB SATURATION 93 % (90-100); BLOOD GAS OXYGEN CONTENT 18.2 Vol % (12.0-20.0); BLOOD GAS PCO2 41 mmHg (38-42); BLOOD GAS PO2 87 mmHg (61-120); BLOOD GAS TOTAL HGB 13.9 G/DL (12.0-16.0); CRITICAL VALUE NO; TEMP CORR TO 98.6
[2016-12-07 21:16] LABS: DRAW SITE RT RADIAL; FIO2 100 %; NUMBER OF ARTERIAL PUNCTURES 1; OXYGEN DEVICE BIPAP10/5; STAT YES; ULNAR PULSE PRESENT
[2016-12-08] VITALS (17 sets, daily range): BP systolic 107–151; BP diastolic 55–92; PULSE 75–92; RESP 20–25; TEMP 97.7–98.2; O2SAT 89–97
[2016-12-08] MEDS: RESP: ALBUTEROL 2.5 MG/IPRATROPIUM 0.5 MG NEB (SCH) NEB ×6 (03:33→23:39)
[2016-12-08] MEDS: CHLORHEXIDINE GLUCONATE 2 % 1 PACK (2 CLOTHS)(taper/protocol) TOP SCH (04:00)
--- NOTE | 2016-12-08 04:49 | RADRPT ---
EXAM DATE/TIME: 12/08/2016 02:39 [facility] COMPARISON: CHEST SINGLE AP, December 05, 2016, 23:48. INDICATIONS : Shortness of breath. MEDICAL HISTORY : None. SURGICAL HISTORY : None. ENCOUNTER: Subsequent ACUITY: 4 - 6 days PAIN SCORE: Non-responsive. LOCATION: Bilateral chest FINDINGS: There is bilateral mostly basilar airspace disease. No significant effusion. Heart size upper limits normal. No pneumothorax. CONCLUSION: 1. Basilar airspace disease slightly increased from December 05 without significant effusion. No pneumot horax. Max Raymundo MD on December 08, 2016 at 4:45 Board Certified Radiologist. This report was verified electronically.
[2016-12-08 05:41] LABS: AUTOMATED NEUTROPHIL # 14.7 TH/MM3 (1.8-7.7); HEMATOCRIT 38.5 % (39.0-51.0); HEMO FLAGS DIFF FINAL; LYMPH % 5.2 % (9.0-44.0); LYMPHOCYTE # 0.8 TH/MM3 (1.0-4.8); MEAN CELL VOLUME 93.5 FL (80.0-100.0); MEAN CORPUSCULAR HEMOGLOBIN 31.7 PG (27.0-34.0); MEAN CORPUSCULAR HGB CONC 33.9 % (32.0-36.0); MONO % 2.9 % (0.0-8.0); NEUT % 91.9 % (16.0-70.0); PLATELET COUNT 184 TH/MM3 (150-450); RED BLOOD COUNT 4.12 MIL/MM3 (4.50-5.90); RED CELL DISTRIBUTION WIDTH 13.7 % (11.6-17.2)
[2016-12-08] MEDS: methylPREDNISolone SOD SUCC 40 MG/1 ML VIAL IV PUSH SCH ×3 (05:57→20:31)
[2016-12-08 06:02] LABS: BICARBONATE 26.3 MEQ/L (21.0-32.0); MAGNESIUM 2.3 MG/DL (1.5-2.5); POTASSIUM 4.2 MEQ/L (3.5-5.1)
[2016-12-08] MEDS: RESP: BUDESONIDE 0.5 MG/2 ML NEB NEB SCH ×2 (07:34→19:35)
[2016-12-08] MEDS: INSULIN NovoLIN REGULAR SUPPLEMENTAL SCALE SQ SCH ×5 (08:00→20:00)
[2016-12-08] MEDS ORDERED: MAGNESIUM SULFATE INJ 2 GM in SODIUM CHLORIDE 0.9% INJ 96 ML IV PRN (08:15)
[2016-12-08] MEDS ORDERED: POTASSIUM PHOSPHATE MONOBASIC 500 MG TAB PO/TUBE PRN (08:15)
[2016-12-08] MEDS ORDERED: SODIUM PHOSPHATE INJ 30 MMOL in SODIUM CHLOR 0.9% 250 ML INJ 240 ML IV PRN (08:15)
[2016-12-08] MEDS ORDERED: POTASSIUM CHLOR 20 MEQ PREMIX 100 ML IV PRN ×2 (08:15)
[2016-12-08] MEDS ORDERED: MAGNESIUM OXIDE 400 MG TAB PO PRN (08:15)
[2016-12-08] MEDS ORDERED: MAGNESIUM SULFATE INJ 4 GM in SODIUM CHLORIDE 0.9% INJ 92 ML IV PRN (08:15)
[2016-12-08] MEDS ORDERED: POTASSIUM PHOSPHATE INJ 30 MMOL in SODIUM CHLOR 0.9% 250 ML INJ 250 ML IV PRN (08:15)
[2016-12-08] MEDS ORDERED: POTASSIUM CHLOR 40 MEQ PREMIX 100 ML IV PRN ×2 (08:15)
--- NOTE | 2016-12-08 08:18 | HHI.CCPN ---
Subjective Remarks/Hospital Course The patient is an 81-year-old male with past medical history of COPD on 3 liters home oxygen p.r.n., hypertension, hyperlipidemia and dementia, benign prostate hypertrophy and history of aspiration pneumonia. He was admitted to [facility] on December 04 after he was transferred from [facility] per the daughter's request for COPD exacerbation and pneumonia. The patient was placed on bronchodilators and broad-spectrum antibiotics. A chest x-ray on admission showed bibasilar consolidation more pronounced on the left. Repeat chest x-ray was performed yesterday which showed resolution of the basilar consolidation. However, diffuse interstitial prominence was noted seen throughout the left lung. The patient had an ABG on BiPAP 15/8 at 100% last night which showed mild acute hypercapnic respiratory and hypoxemic acidosis with a pH of 7.32, CO2 52, pAO2 81, bicarb 26 and saturation of 91%. He was taken off BiPAP early this morning and is currently on 50% Ventimask with saturation of 89% to 90%. The patient is awake and alert. He is out of bed and sitting in chair in mild distress. He is afebrile. Most of the history was obtained from reviewing medical records and from my discussion with the daughter. Patient is a poor historian due to his underlying dementia. He is currently being treated for pneumonia with cefepime and Levaquin. 12/07 Patient was on BIPAP 10/5 with 40% FIO2 overnight. CTA chest showed no PE. 12/08 No acute events overnight. Afebrile. Off BIPAP. Objective Vital Signs Date Time Temp Pulse Resp B/P Pulse Ox O2 Delivery O2 Flow Rate FiO2 12/08/16 04:00 83 12/08/16 04:00 98.0 20 137/63 89 12/08/16 03:35 50 12/07/16 23:20 Bi-Pap 12/07/16 19:37 5.00 Intake and Output 12/07/16 12/07/16 12/08/16 08:00 16:00 00:00 Intake Total 553 ml 1458 ml 501 ml Output Total 950 ml 675 ml 650 ml Balance -397 ml 783 ml -149 ml Result Diagram: 12/08/16 0416 12/08/16 0416 Other Results Laboratory Tests Test 12/07/16 12/08/16 21:04 04:16 Blood Gas Puncture Site RT RADIAL Blood Gas Patient Temperature 98.6 Blood Gas HCO3 23 mmol/L Blood Gas Base Excess -1.7 mmol/L Blood Gas Oxygen Saturation 93 % Arterial Blood pH 7.36 Arterial Blood Partial 41 mmHg Pressure CO2 Arterial Blood Partial 87 mmHg Pressure O2 Arterial Blood Oxygen Content 18.2 Vol % Arterial Blood 1.0 % Carboxyhemoglobin Arterial Blood Methemoglobin 1.0 % Blood Gas Hemoglobin 13.9 G/DL Oxygen Delivery Device BIPAP10/5 Blood Gas Inspired Oxygen 100 % White Blood Count 16.0 TH/MM3 Red Blood Count 4.12 MIL/MM3 Hemoglobin 13.1 GM/DL Hematocrit 38.5 % Mean Corpuscular Volume 93.5 FL Mean Corpuscular Hemoglobin 31.7 PG Mean Corpuscular Hemoglobin 33.9 % Concent Red Cell Distribution Width 13.7 % Platelet Count 184 TH/MM3 Mean Platelet Volume 8.2 FL Neutrophils (%) (Auto) 91.9 % Lymphocytes (%) (Auto) 5.2 % Monocytes (%) (Auto) 2.9 % Eosinophils (%) (Auto) 0.0 % Basophils (%) (Auto) 0.0 % Neutrophils # (Auto) 14.7 TH/MM3 Lymphocytes # (Auto) 0.8 TH/MM3 Monocytes # (Auto) 0.5 TH/MM3 Eosinophils # (Auto) 0.0 TH/MM3 Basophils # (Auto) 0.0 TH/MM3 CBC Comment DIFF FINAL Differential Comment Sodium Level 136 MEQ/L Potassium Level 4.2 MEQ/L Chloride Level 100 MEQ/L Carbon Dioxide Level 26.3 MEQ/L Anion Gap 10 MEQ/L Blood Urea Nitrogen 18 MG/DL Creatinine 0.97 MG/DL Estimat Glomerular Filtration 74 ML/MIN Rate Random Glucose 159 MG/DL Calcium Level 8.6 MG/DL Phosphorus Level 2.2 MG/DL Magnesium Level 2.3 MG/DL Imaging Last Impressions Chest X-Ray 12/08/16 0600 Signed Impressions: Service Date/Time: Thursday, December 08, 2016 02:39 - CONCLUSION: 1. Basilar airspace disease slightly increased from December 05 without significant effusion. No pneumothorax. Max Raymundo MD CT Angiography 12/06/16 0000 Signed Impressions: Service Date/Time: Tuesday, December 06, 2016 16:54 - CONCLUSION: 1. Negative for pulmonary embolus. 2. Dense consolidation left lower lobe with at least partial obstruction of the left lower lobe bronchus. This could be from mucoid impaction. A single airspace disease in the remainder of the lungs. 3. Partially calcified pleural plaques likely from prior asbestos exposure. Previous left rib fractures. Max Raymundo MD Objective Remarks GENERAL: Patient is 81 yo lying in bed in NAD SKIN: Warm and dry. HEAD: Normocephalic. EYES: No scleral icterus. No injection or drainage. NECK: Supple, trachea midline. No JVD or lymphadenopathy. CARDIOVASCULAR: Regular rate and rhythm without murmurs, gallops, or rubs. RESPIRATORY: Breath sounds equal bilaterally. Few coarse BS GASTROINTESTINAL: Abdomen soft, non-tender, nondistended. MUSCULOSKELETAL: No cyanosis, or edema. Neuro: Awake and alert. A/P Assessment and Plan 1. Acute hypercapnic and hypoxemic respiratory failure. 2. COPD exacerbation. 3. Hypertension. 4. Dementia. 5. Hyperlipidemia. 6. History of aspiration pneumonia. 7. History of arthritis. 8)Calcified pleural plaques likely from prior asbestos exposure Plan Neuro: Monitor neuro status closely and avoid any sedatives. Pulm: Wean down oxygen as js and maintain sats >92%. Bronchodilators, Pulmicort nebulizers q. 12, Symbicort 160/4.5 2puffs q 12 hours. Solu-Medrol 60 milligrams IV q. 8. NIPPV PRN for respiratory distress. CTA chest: Negative for PE. Dense consolidation left lower lobe with at least partial obstruction of the left lower lobe bronchus. This could be from mucoid impaction. A single airspace disease in the remainder of the lungs. Partially calcified pleural plaques likely from prior asbestos exposure Pulm eval patient is likely high risk for bronch given his resp status. CV: Monitor HR and BP and maintain MAP >65mmHg : Monitor renal function, intake and output and electrolyte replacement per protocol. d/c IVF GI: On PO diet, on Pepcid 20 mg q. 12. Check KUB abdomen r/o ileus ID: Continue with abx(Cefepime and Levaquin) and monitor for signs of infection ( fever and WBCs). Sputum culture 12/04 normal respiratory alejandra. Strep pneumoniae and Legionella urinary antigens negative. Heme: Monitor CBC. Endo: SSI with Accu-Chek q. 4 hour for glycemic control GI prophylaxis with Pepcid 20 mg q. 12. DVT prophylaxis with SCDs and Lovenox 40 mg sq daily Level 3 Yoandy Irvin MD Dec 08, 2016 08:18
--- NOTE | 2016-12-08 09:05 | RADRPT ---
EXAM DATE/TIME: 12/08/2016 08:20 [facility] COMPARISON: No previous studies available for comparison. INDICATIONS : Evaluate for ileus. MEDICAL HISTORY : Hypertension. Hernia. SURGICAL HISTORY : None. ENCOUNTER: Initial ACUITY: 1 day PAIN SCORE: 4/10 LOCATION: Abdomen. FINDINGS: 2 portable supine frontal views of the abdomen show gas distended loops of small bowel within the mid abdomen. Colon is gas-filled but normal in caliber. Residual barium is seen within multiple sigmoid d iverticula. Stomach is normal in caliber. The right femoral neck through an intramedullary lance oriana sing old intertrochanteric fracture. Heart is mildly enlarged. CONCLUSION: Mildly dilated small bowel loops. Differential diagnostic considerations include a mild partial obstr uction versus an ileus. Alberto Mirza Jr., MD on December 08, 2016 at 9:02 Board Certified Radiologist. This report was verified electronically.
[2016-12-08] MEDS: TAMSULOSIN HCL 0.4 MG CAP PO SCH (09:55)
[2016-12-08] MEDS: DIVALPROEX SODIUM E.R. 250 MG TAB PO SCH (09:55)
[2016-12-08] MEDS: ESCITALOPRAM OXALATE 10 MG TAB PO SCH (09:55)
[2016-12-08] MEDS: FAMOTIDINE 20 MG TAB PO SCH ×2 (09:56→20:31)
[2016-12-08] MEDS: LACTOBACILLUS ACIDOPHILUS TAB PO SCH ×3 (09:56→18:28)
[2016-12-08] MEDS: BUDESONIDE-FORMOTEROL 160/4.5 MCG INHALER INH SCH (09:57)
[2016-12-08] MEDS: CEFEPIME INJ 2,000 MG in SODIUM CHLORIDE 0.9% INJ 100 ML IV SCH ×3 (09:57→20:31)
[2016-12-08] MEDS: ENOXAPARIN SODIUM 40 MG/0.4 ML SYRINGE SQ SCH (09:58)
[2016-12-08] MEDS: FLUTICASONE PROPIONATE 50 MCG/ACT 16 GM NASAL SPRAY NASAL SCH (11:43)
--- NOTE | 2016-12-08 11:43 | PD.CONS ---
HPI History of Present Illness This is a 81 year old with dementia, COPD, hypertension, and a hx of aspiration pneumonia, who was transferred from [facility] to this facility per the daughter's request for further evaluation and treatment of his pneumonia and COPD. He is currently in the ICU being treated for acute respiratory failure secondary to COPD exacerbation and possible aspiration pneumonia. He was on the BiPAP machine overnight, but is currently on high flow oxygen- in no distress. He is pleasantly confused, but unable to provide any history and therefore the history has been obtained from the daughter who is at the bedside. She reports that he developed abdominal pain with significant reflux and some dry heaving last night. He did not actually vomit. His daughter reports that he has had or bloating than normal over the past few weeks, but reports that he has not had any issues moving his bowels. He recently had an upper endoscopy while at [facility] and according to the daughter this revealed esophagitis, and esophageal diverticulum, and a hiatal hernia. She does not know if he is ever had a colonoscopy He currently denies any abdominal pain, although his daughter reports that he is unable to recognize pain. He ate his breakfast this morning without any difficulty and is drinking chocolate milk and or and orange juice at this time. He is passing liquid/soft stool. He has never had any abdominal surgeries. (Lashell Taveras) PFSH Past Medical History Hypertension Hyperlipidemia Dementia BPH COPD Hiatal hernia Esophagitis Esophageal diverticulum History of aspiration pneumonia Arthritis Past Surgical History Right hip surgery (Lashell Taveras) Uncoded Allergies: cough medicines (Adverse Reaction, Severe, 12/03/16) reactio is mainly made o2 sat go down Medications Allergies Uncoded Allergies Type Severity Reaction Last Updated Verified cough medicines Adverse Reaction Severe 12/03/16 Family History Denies family history of medical issues Social History Quit smoking 5 years ago, used to smoke for about 50yrs no etoh or drug abuse (Lashell Taveras) Review of Systems ROS Difficult to obtain. According to daughter he had dry heaving reflux last night and abdominal pain. Unable to obtain from patient (Lashell Taveras) GI Exam Vitals I&O Vital Signs Date Time Temp Pulse Resp B/P Pulse Ox O2 Delivery O2 Flow Rate FiO2 12/08/16 10:05 90 High Flow Nasal Cannula 25.00 80 12/08/16 09:16 92 Partial Rebreather 12/08/16 04:00 83 12/08/16 04:00 98.0 83 20 137/63 89 12/08/16 03:35 90 50 12/08/16 02:00 79 12/08/16 01:01 91 50 12/08/16 00:00 91 12/08/16 00:00 98.2 85 20 121/68 92 12/07/16 23:20 85 Bi-Pap 50 12/07/16 22:15 95 Bi-Pap 45 12/07/16 22:00 88 12/07/16 21:30 86 Bi-Pap 100 12/07/16 20:40 90 100 12/07/16 20:00 85 12/07/16 20:00 98.3 85 20 99/55 86 12/07/16 19:37 92 Nasal Cannula 5.00 12/07/16 18:00 88 12/07/16 16:00 78 12/07/16 16:00 98.2 78 26 113/64 88 12/07/16 14:00 78 12/07/16 12:00 81 12/07/16 12:00 97.8 81 20 105/58 91 I/O 12/07/16 12/07/16 12/07/16 12/08/16 12/08/16 12/08/16 07:00 15:00 23:00 07:00 15:00 23:00 Intake Total 553 ml 1458 ml 501 ml 473 ml Output Total 950 ml 675 ml 650 ml 500 ml Balance -397 ml 783 ml -149 ml -27 ml Intake Oral 0 ml 720 ml IV Total 553 ml 738 ml 501 ml 473 ml Output Urine Total 950 ml 675 ml 650 ml 500 ml # Bowel Movements 0 1 0 0 Imaging Last Impressions Chest X-Ray 12/08/16 0600 Signed Impressions: Service Date/Time: Thursday, December 08, 2016 02:39 - CONCLUSION: 1. Basilar airspace disease slightly increased from December 05 without significant effusion. No pneumothorax. Max Raymundo MD Abdomen X-Ray 12/08/16 0000 Signed Impressions: Service Date/Time: Thursday, December 08, 2016 08:20 - CONCLUSION: Mildly dilated small bowel loops. Differential diagnostic considerations include a mild partial obstruction versus an ileus. Alberto Mirza Jr., MD CT Angiography 12/06/16 0000 Signed Impressions: Service Date/Time: Tuesday, December 06, 2016 16:54 - CONCLUSION: 1. Negative for pulmonary embolus. 2. Dense consolidation left lower lobe with at least partial obstruction of the left lower lobe bronchus. This could be from mucoid impaction. A single airspace disease in the remainder of the lungs. 3. Partially calcified pleural plaques likely from prior asbestos exposure. Previous left rib fractures. Max Raymundo MD Laboratory Test 12/07/16 12/08/16 21:04 04:16 Blood Gas Puncture Site RT RADIAL Blood Gas Patient Temperature 98.6 Blood Gas HCO3 23 mmol/L Blood Gas Base Excess -1.7 mmol/L Blood Gas Oxygen Saturation 93 % Arterial Blood pH 7.36 Arterial Blood Partial 41 mmHg Pressure CO2 Arterial Blood Partial 87 mmHg Pressure O2 Arterial Blood Oxygen Content 18.2 Vol % Arterial Blood 1.0 % Carboxyhemoglobin Arterial Blood Methemoglobin 1.0 % Blood Gas Hemoglobin 13.9 G/DL Oxygen Delivery Device BIPAP10/5 Blood Gas Inspired Oxygen 100 % White Blood Count 16.0 TH/MM3 Red Blood Count 4.12 MIL/MM3 Hemoglobin 13.1 GM/DL Hematocrit 38.5 % Mean Corpuscular Volume 93.5 FL Mean Corpuscular Hemoglobin 31.7 PG Mean Corpuscular Hemoglobin 33.9 % Concent Red Cell Distribution Width 13.7 % Platelet Count 184 TH/MM3 Mean Platelet Volume 8.2 FL Neutrophils (%) (Auto) 91.9 % Lymphocytes (%) (Auto) 5.2 % Monocytes (%) (Auto) 2.9 % Eosinophils (%) (Auto) 0.0 % Basophils (%) (Auto) 0.0 % Neutrophils # (Auto) 14.7 TH/MM3 Lymphocytes # (Auto) 0.8 TH/MM3 Monocytes # (Auto) 0.5 TH/MM3 Eosinophils # (Auto) 0.0 TH/MM3 Basophils # (Auto) 0.0 TH/MM3 CBC Comment DIFF FINAL Differential Comment Sodium Level 136 MEQ/L Potassium Level 4.2 MEQ/L Chloride Level 100 MEQ/L Carbon Dioxide Level 26.3 MEQ/L Anion Gap 10 MEQ/L Blood Urea Nitrogen 18 MG/DL Creatinine 0.97 MG/DL Estimat Glomerular Filtration 74 ML/MIN Rate Random Glucose 159 MG/DL Calcium Level 8.6 MG/DL Phosphorus Level 2.2 MG/DL Magnesium Level 2.3 MG/DL Date/Time Procedure Status Source Growth 12/06/16 23:20 Legionella Antigen - Final Complete Urine Catheterized Urine PRESUMPTIVE NEGATIVE FOR LEGIONELLA P... 12/06/16 23:20 Streptococcus pneumoniae Antigen (M - Final Complete Urine Catheterized Urine PRESUMPTIVE NEGATIVE FOR STREPTOCOCCU... 12/04/16 04:50 Gram Stain - Final Complete Sputum Expectorated Sputum 12/04/16 04:50 Sputum Culture - Final Complete Sputum Expectorated Sputum HEAVY GROWTH NORMAL RESPIRATORY AYANNA Physical Examination HEENT: Normocephalic; atraumatic; no jaundice. CHEST: Diminished, mildly labored CARDIAC: Regular rate and rhythm with no murmur gallop or rubs. ABDOMEN: Soft, nondistended, nontender; no hepatosplenomegaly; bowel sounds are present in all four quadrants. EXTREMITIES: No clubbing, cyanosis, or edema. SKIN: Normal; no rash; no jaundice. METALLURGICAL INSPECTOR: No focal deficits; alert and oriented times three. (Lashell Taveras) Assessment and Plan Plan ASSESSMENT: - Mild ileus vs. PSBO. Pt had bloating with abdominal pain and dry heaving overnight. KUB (12/08/16)---> Mildly dilated small bowel loops. Differential diagnostic considerations include a mild partial obstruction versus an ileus. He currently has bloating, but no nausea, vomiting, no tenderness on exam, and is passing stool. He tolerated breakfast and is drinking chocolate milk and orange juice without difficulty. He has had 2 loose/soft bowel movements. He was recently hospitalized at [facility] and had EGD 2 weeks ago----> esophagitis, esophageal diverticulum, and hh. She does not know if he has ever had a colonoscopy. This is most likely a mild ileus, as he has never had any abdominal surgeries and is passing stool. Will add Reglan and Miralax. If worsening of symptoms, will make NPO and consider CT. He is currently in no distress. - GERD. Pepcid. Will change to Protonix 40mg IV BID. - Resp. Failure, COPD exacerbation, per [facility] - HTN, Hyperlipidemia, BPH per primary PLAN: - TERRY at this time - If n/v, worsening distention make npo - D/C Pepcid - Protonix 40mg IV BID - Reglan 10mg IV q8h - Miralax 17 gram po daily - KUB in am - Supportive care - Further recommendations to follow based on results of above - Pt seen and examined by Dr. Narayan and myself and this note is written on his behalf (Lashell Taveras) Physician Comments Patient seen and examined Agree with above Continue with current supportive care Monitor labs Patient sitting in bed tolerating liquid diet and abdomen is soft Will await KUB tomorrow for further recommendations but it looks like he probably resolved his ileus or small bowel obstruction (Bhavesh Narayan MD) Lashell Taveras Dec 08, 2016 11:43 Bhavesh Narayan MD Dec 08, 2016 21:56
[2016-12-08] MEDS: POLYETHYLENE GLYCOL 17 GM PKG PO SCH (12:09)
[2016-12-08] MEDS: PANTOPRAZOLE SODIUM 40 MG VIAL IV PUSH SCH (12:10)
[2016-12-08] MEDS: POTASSIUM PHOSPHATE MONOBASIC 500 MG TAB PO PRN ×2 (12:10→19:20)
[2016-12-08] MEDS: metroNIDAZOLE 500 MG INJ 100 ML IV SCH ×2 (16:37→20:33)
[2016-12-08] MEDS: LEVOFLOXACIN 750 MG PREMIX INJ 150 ML IV SCH (16:39)
[2016-12-08] MEDS: METOCLOPRAMIDE HCL 10 MG/2 ML VIAL IV PUSH SCH ×2 (16:41→20:31)
--- NOTE | 2016-12-08 19:43 | MB ---
cc: ANGIE BAEZA DATE OF CONSULTATION 12/07/2016 REASON FOR CONSULTATION Pneumonia and respiratory distress. HISTORY OF THE PRESENT ILLNESS This is an 80-year-old white male with a past history for dementia and COPD was initially at an [facility] in [place]. The patient apparently developed pneumonia with persistent coughing spells and was taken to the [facility] in [place]. The patient apparently had a chest x-ray there which showed evidence of basilar pulmonary infiltrates. He was suspected to be aspirating and had repeated admissions to the hospital in [place] and also had an EGD done [facility] and was found to have esophagitis and a hiatal hernia. Subsequently the patient was brought by his daughter to [facility] since he was not improving and had developed loose stools and suspected to have C. Difficile. The patient then was brought to the [facility] and admitted for further evaluation and treatment. The patient is unable to relate any significant details of his history or illness. He is on IV cefepime and Levaquin for a left basilar pneumonia and atelectasis. He denies chest pains. He is not running any fevers. He is presently on oxygen via Venti-mask and he is being weaned down to a nasal cannula. PAST MEDICAL HISTORY The patient's past history has included: 1. History of COPD on home oxygen. 2. History of dementia. 3. History of hypertension and hyperlipidemia. 4. History of arthritis. 5. Prostatic hypertrophy. PAST SURGICAL HISTORY Surgery includes: 1. Hip repair. 2. EGD. MEDICATIONS Med list included: 1. Levaquin. 2. Cefepime. 3. Flomax. 4. Seroquel. 5. Nebulized albuterol. FAMILY HISTORY Noncontributory. SOCIAL HISTORY Habits, the patient smoked in the past for over 40 years about a pack per day and has quit four years ago. No alcohol use. Lives at the [facility]. REVIEW OF SYSTEMS System review, the patient is short of breath. He has wheezing. He is orthopneic. He has a cough. And has some epigastric distress. No leg swelling or calf muscle pains. He has joint pains of his extremities. And depression. PHYSICAL EXAMINATION GENERAL: This elderly man is average built, mild respiratory distress. VITAL SIGNS: Blood pressure 110/70, pulse is 90, respiratory rate 24, temperature is 98.2. HEENT: Head is normocephalic. Pupils are reactive. Tongue is moist. Throat is mildly injected. Nasal mucosa erythematous. NECK: Supple. No bruits or thyroid enlargement. CHEST: Equal movements to percussion note, resonance throughout. Crackles heard at both lung bases with diminished breath sounds over the periphery. HEART: The heart sounds are regular S1-S2 with no murmur. No S3 gallop. ABDOMEN: The abdomen is soft, nontender. No organomegaly. Bowel sounds are active. EXTREMITIES: No edema or cyanosis. No clubbing. Peripheral pulses are diminished. Reflexes are 1+ with no gross motor deficits. NEUROLOGIC: Cranial nerves grossly intact. SKIN: No lesions noted. IMPRESSION 1. Hypercapnic respiratory failure. 2. COPD with acute exacerbation. 3. Basilar pneumonia and atelectasis. 4. Dementia. 5. History of hypertension. PLAN The patient has been started on IV antibiotics which we will continue. His CT scan is suggestive of a dense infiltrate in the left lower lobe and possible partial obstruction of the lower lobe bronchus, maybe with a mucus plug or a lesion. The patient has been started on Solu-Medrol 60 mg q.8h and also on nebulized DuoNeb solution q.i.d. and Symbicort 2 puffs b.i.d. We will get a follow up chest x-ray in the a.m. and a CBC and a coag. He is being weaned down to nasal cannula and when he is clinically stable, we will schedule him for bronchoscopy to evaluate the left lower lobe bronchus. I will discuss the case with you Dr. Harley. Thank you for this consultation. MD MARGARITO Freeman/LEW /6:46 PM /7:10 PM
--- NOTE | 2016-12-08 19:54 | HHI.PR ---
Subjective Remarks No SOB at rest On O2 3L. No fever. CXR was worse. Objective Vital Signs Date Time Temp Pulse Resp B/P Pulse Ox O2 Delivery O2 Flow Rate FiO2 12/08/16 18:00 83 12/08/16 16:00 97.9 92 22 151/70 97 12/08/16 16:00 92 12/08/16 14:00 87 12/08/16 12:00 98.1 80 25 107/55 91 12/08/16 12:00 80 12/08/16 10:05 90 High Flow Nasal Cannula 25.00 80 12/08/16 10:00 87 12/08/16 09:16 92 Partial Rebreather 12/08/16 08:00 86 12/08/16 08:00 98.2 86 22 140/63 90 12/08/16 07:00 87 Nasal Cannula 4.00 12/08/16 04:00 83 12/08/16 04:00 98.0 83 20 137/63 89 12/08/16 03:35 90 50 12/08/16 02:00 79 12/08/16 01:01 91 50 12/08/16 00:00 91 12/08/16 00:00 98.2 85 20 121/68 92 12/07/16 23:20 85 Bi-Pap 50 12/07/16 22:15 95 Bi-Pap 45 12/07/16 22:00 88 12/07/16 21:30 86 Bi-Pap 100 12/07/16 20:40 90 100 12/07/16 20:00 85 12/07/16 20:00 98.3 85 20 99/55 86 I/O 12/07/16 12/07/16 12/07/16 12/08/16 12/08/16 12/08/16 07:00 15:00 23:00 07:00 15:00 23:00 Intake Total 553 ml 1458 ml 501 ml 473 ml 1472 ml Output Total 950 ml 675 ml 650 ml 500 ml 1000 ml Balance -397 ml 783 ml -149 ml -27 ml 472 ml Intake Oral 0 ml 720 ml 840 ml IV Total 553 ml 738 ml 501 ml 473 ml 632 ml Output Urine Total 950 ml 675 ml 650 ml 500 ml 1000 ml # Bowel Movements 0 1 0 0 2 Result Diagram: 12/08/16 0416 12/08/16 041 Objective Remarks GENERAL: This elderly man is average built, mild respiratory distress. HEENT: Head is normocephalic. Pupils are reactive. Tongue is moist. Throat is mildly injected. Nasal mucosa erythematous. NECK: Supple. No bruits or thyroid enlargement. CHEST: Equal movements to percussion note, resonance throughout. Crackles heard at both lung bases with diminished breath sounds over the periphery. HEART: The heart sounds are regular S1-S2 with no murmur. No S3 gallop. ABDOMEN: The abdomen is soft, nontender. No organomegaly. Bowel sounds are active. EXTREMITIES: No edema or cyanosis. No clubbing. Peripheral pulses are diminished. Reflexes are 1+ with no gross motor deficits. NEUROLOGIC: Cranial nerves grossly intact. SKIN: No lesions noted. Assessment and Plan Assessment and Plan IMPRESSION 1. Hypercapnic respiratory failure. 2. COPD with acute exacerbation. 3. Basilar pneumonia and atelectasis. 4. Dementia. 5. History of hypertension. Plan : 1. Cont Nebs qid 2. Antibiotics as orderd and add Flagyl. 3. Wean O2 to keep sat >92 4. Will schedule Bronchoscopy 5. Hold anticoagulants. Mary nAn Baker MD Dec 08, 2016 19:54
[2016-12-08] MEDS: QUEtiapine FUMARATE 25 MG TAB PO SCH (20:31)
--- NOTE | 2016-12-08 21:25 | EKG ---
Date Performed: 12/07/2016 Time Performed: 21:19:23 PTAGE: 81 years EKG: SINUS TACHYCARDIA NONSPECIFIC ST & T-WAVE ABNORMALITY ABNORMAL RHYTHM ECG NO PREVIOUS TRACING DOCTOR: Emma Matthew Interpretating Date/Time 12/08/2016 21:24:41
[2016-12-09] VITALS (14 sets, daily range): BP systolic 116–149; BP diastolic 53–78; PULSE 71–106; RESP 19–28; TEMP 97.7–98.4; O2SAT 89–98
[2016-12-09] MEDS: RESP: ALBUTEROL 2.5 MG/IPRATROPIUM 0.5 MG NEB (SCH) NEB ×6 (04:00→23:29)
[2016-12-09] MEDS: INSULIN NovoLIN REGULAR SUPPLEMENTAL SCALE SQ SCH ×6 (04:00→23:34)
[2016-12-09 04:33] LABS: AUTOMATED NEUTROPHIL # 9.6 TH/MM3 (1.8-7.7); HEMATOCRIT 37.2 % (39.0-51.0); HEMO FLAGS DIFF FINAL; LYMPH % 3.8 % (9.0-44.0); LYMPHOCYTE # 0.4 TH/MM3 (1.0-4.8); MEAN CORPUSCULAR HGB CONC 32.7 % (32.0-36.0); MONO % 4.6 % (0.0-8.0); NEUT % 91.6 % (16.0-70.0); PLATELET COUNT 155 TH/MM3 (150-450); RED BLOOD COUNT 3.92 MIL/MM3 (4.50-5.90); RED CELL DISTRIBUTION WIDTH 13.7 % (11.6-17.2); WHITE BLOOD COUNT 10.5 TH/MM3 (4.0-11.0)
[2016-12-09 04:52] LABS: BICARBONATE 26.2 MEQ/L (21.0-32.0); MAGNESIUM 2.2 MG/DL (1.5-2.5); POTASSIUM 4.3 MEQ/L (3.5-5.1)
[2016-12-09] MEDS: METOCLOPRAMIDE HCL 10 MG/2 ML VIAL IV PUSH SCH ×3 (05:02→21:35)
[2016-12-09] MEDS: methylPREDNISolone SOD SUCC 40 MG/1 ML VIAL IV PUSH SCH ×3 (05:03→21:36)
[2016-12-09] MEDS: metroNIDAZOLE 500 MG INJ 100 ML IV SCH ×3 (05:03→21:35)
--- NOTE | 2016-12-09 06:24 | RADRPT ---
EXAM DATE/TIME: 12/09/2016 04:13 [place] COMPARISON: No previous studies available for comparison. INDICATIONS : Abdominal pain. MEDICAL HISTORY : Hypertension. Hernia SURGICAL HISTORY : None. ENCOUNTER: Subsequent ACUITY: 2 days PAIN SCORE: 4/10 LOCATION: Bilateral abdomen FINDINGS: Supine view of the abdomen was performed. The abdominal bowel gas pattern is normal. Nonspecific bow el gas pattern without evidence for obstruction or free air. Residual contrast in numerous diverticul a. Wesley and screw fixation right femur. Scoliosis. CONCLUSION: 1. No acute findings. Colonic diverticula. Max Raymundo MD on December 09, 2016 at 6:21 Board Certified Radiologist. This report was verified electronically.
[2016-12-09] MEDS: RESP: BUDESONIDE 0.5 MG/2 ML NEB NEB SCH ×2 (07:36→19:47)
--- NOTE | 2016-12-09 08:15 | HHI.CCPN ---
Subjective Remarks/Hospital Course The patient is an 81-year-old male with past medical history of COPD on 3 liters home oxygen p.r.n., hypertension, hyperlipidemia and dementia, benign prostate hypertrophy and history of aspiration pneumonia. He was admitted to [facility] on December 04 after he was transferred from [facility] per the daughter's request for COPD exacerbation and pneumonia. The patient was placed on bronchodilators and broad-spectrum antibiotics. A chest x-ray on admission showed bibasilar consolidation more pronounced on the left. Repeat chest x-ray was performed yesterday which showed resolution of the basilar consolidation. However, diffuse interstitial prominence was noted seen throughout the left lung. The patient had an ABG on BiPAP 15/8 at 100% last night which showed mild acute hypercapnic respiratory and hypoxemic acidosis with a pH of 7.32, CO2 52, pAO2 81, bicarb 26 and saturation of 91%. He was taken off BiPAP early this morning and is currently on 50% Ventimask with saturation of 89% to 90%. The patient is awake and alert. He is out of bed and sitting in chair in mild distress. He is afebrile. Most of the history was obtained from reviewing medical records and from my discussion with the daughter. Patient is a poor historian due to his underlying dementia. He is currently being treated for pneumonia with cefepime and Levaquin. 12/07 Patient was on BIPAP 10/5 with 40% FIO2 overnight. CTA chest showed no PE. 12/08 No acute events overnight. Afebrile. Off BIPAP. 12/09 Tmax 98.1 leukocytosis, and bandemia resolved this a.m.. Flagyl was added to antibiotic medication regimen. KUB was performed this morning noting normal gas pattern no evidence of obstruction. Pharmacological DVT prophylaxis discontinued, the patient continues with mechanical, SCDs. The patient continues on high flow nasal cannula, currently at 90% to maintain O2 sat at 92% . Objective Vital Signs Date Time Temp Pulse Resp B/P Pulse Ox O2 Delivery O2 Flow Rate FiO2 12/09/16 07:39 92 High Flow Nasal Cannula 25.00 90 12/09/16 06:00 78 12/09/16 04:00 98.0 20 131/62 Intake and Output 12/08/16 12/08/16 12/09/16 08:00 16:00 00:00 Intake Total 473 ml 1472 ml 515 ml Output Total 500 ml 1000 ml 550 ml Balance -27 ml 472 ml -35 ml Result Diagram: 12/09/16 0344 12/09/16 0344 Other Results Microbiology Date/Time Procedure Status Source Growth 12/06/16 23:20 Legionella Antigen - Final Complete Urine Catheterized Urine PRESUMPTIVE NEGATIVE FOR LEGIONELLA P... 12/06/16 23:20 Streptococcus pneumoniae Antigen (M - Final Complete Urine Catheterized Urine PRESUMPTIVE NEGATIVE FOR STREPTOCOCCU... Imaging Last Impressions Chest X-Ray 12/08/16 0600 Signed Impressions: Service Date/Time: Thursday, December 08, 2016 02:39 - CONCLUSION: 1. Basilar airspace disease slightly increased from December 05 without significant effusion. No pneumothorax. Max Raymundo MD CT Angiography 12/06/16 0000 Signed Impressions: Service Date/Time: Tuesday, December 06, 2016 16:54 - CONCLUSION: 1. Negative for pulmonary embolus. 2. Dense consolidation left lower lobe with at least partial obstruction of the left lower lobe bronchus. This could be from mucoid impaction. A single airspace disease in the remainder of the lungs. 3. Partially calcified pleural plaques likely from prior asbestos exposure. Previous left rib fractures. Max Raymundo MD Objective Remarks GENERAL: Patient is 81 yo lying in bed in NAD, pleasantly confused alert to self SKIN: Warm and dry. HEAD: Normocephalic. EYES: No scleral icterus. No injection or drainage. NECK: Supple, trachea midline. No JVD or lymphadenopathy. CARDIOVASCULAR: Regular rate and rhythm without murmurs, gallops, or rubs. RESPIRATORY: Breath sounds equal bilaterally. Mild coarse expiratory wheezes GASTROINTESTINAL: Abdomen soft, non-tender, nondistended. MUSCULOSKELETAL: No cyanosis, or edema. Neuro: Awake and alert. Urinary Catheter: Yes Assessment to: Continue Calles insert reason: Obstruction/Retention A/P Assessment and Plan 1. Acute hypercapnic and hypoxemic respiratory failure. 2. COPD exacerbation. 3. Hypertension. 4. Dementia. 5. Hyperlipidemia. 6. History of aspiration pneumonia. 7. History of arthritis. 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 GERD 10. Esophageal diverticulum 11. BPH 12. Mild ileus Plan Neuro: Monitor neuro status closely and avoid any sedatives. Continue home meds Depakote, and Lexapro Pulm: Wean down oxygen as js and maintain sats >92%. Bronchodilators, Pulmicort nebulizers q. 12, Symbicort 160/4.5 2puffs q 12 hours. Solu-Medrol 60 milligrams IV q. 8. NIPPV PRN for respiratory distress. CTA chest: Negative for PE. Dense consolidation left lower lobe with at least partial obstruction of the left lower lobe bronchus. This could be from mucoid impaction. A single airspace disease in the remainder of the lungs. Partially calcified pleural plaques likely from prior asbestos exposure Pulm eval patient is likely high risk for bronch given his resp status. Pulmonary consulted-Dr. Link Bettencourt, follow recommendations, continue to wean high flow nasal cannula CV: Monitor HR and BP and maintain MAP >65mmHg. we'll obtain EKG for QT monitoring secondary to scheduled SSRI, and Haldol : Monitor renal function, intake and output and electrolyte replacement per protocol. Continue Calles catheter secondary to BPH, condom catheter attempted, noted retention GI: On PO diet, on Pepcid 20 mg q. 12. 12/09 KUB abdomen -normal bowel gas pattern, no evidence of obstruction or free air GI consulted-Dr. Reaves, metoclopramide added to medication regimen, the patient continues on MiraLAX. No BM, will add senna and Colace ID: Continue with abx(Cefepime and Levaquin) and monitor for signs of infection ( fever and WBCs). Flagyl added per pulmonary Sputum culture 12/04 normal respiratory alejandra. Strep pneumoniae and Legionella urinary antigens negative. Heme: Monitor CBC. Endo: SSI with Accu-Chek q. 4 hour for glycemic control GI prophylaxis with Pepcid 20 mg q. 12. DVT prophylaxis with SCDs and Lovenox 40 mg discontinued 12/08 Level 3 Physician Leila Perez MD Dec 09, 2016 08:15
[2016-12-09] MEDS: LACTOBACILLUS ACIDOPHILUS TAB PO SCH ×3 (09:45→18:00)
[2016-12-09] MEDS: DIVALPROEX SODIUM E.R. 250 MG TAB PO SCH (09:45)
[2016-12-09] MEDS: ESCITALOPRAM OXALATE 10 MG TAB PO SCH (09:45)
[2016-12-09] MEDS: DOCUSATE SODIUM 50 MG/SENNA 8.6 MG TAB PO SCH ×2 (09:45→19:59)
[2016-12-09] MEDS: FAMOTIDINE 20 MG TAB PO SCH ×2 (09:45→21:35)
[2016-12-09] MEDS: BUDESONIDE-FORMOTEROL 160/4.5 MCG INHALER INH SCH ×2 (09:46→21:34)
[2016-12-09] MEDS: TAMSULOSIN HCL 0.4 MG CAP PO SCH (09:46)
[2016-12-09] MEDS: CEFEPIME INJ 2,000 MG in SODIUM CHLORIDE 0.9% INJ 100 ML IV SCH ×2 (09:46→21:34)
[2016-12-09] MEDS: FLUTICASONE PROPIONATE 50 MCG/ACT 16 GM NASAL SPRAY NASAL SCH ×2 (09:47→21:34)
[2016-12-09] MEDS: POLYETHYLENE GLYCOL 17 GM PKG PO SCH (09:59)
--- NOTE | 2016-12-09 11:09 | HHI.GIFU ---
Subjective Remarks Patient resting in bed. Denies any nausea or vomiting. Patient has had several bowel movements today. He denies any abdominal pain and does not appear to be tender on exam (Lashell Taveras) Objective Vitals I&O Vital Signs Date Time Temp Pulse Resp B/P Pulse Ox O2 Delivery O2 Flow Rate FiO2 12/09/16 07:39 92 High Flow Nasal Cannula 25.00 90 12/09/16 06:00 78 12/09/16 04:00 98.0 84 20 131/62 95 12/09/16 04:00 84 12/09/16 02:00 73 12/09/16 00:00 97.7 80 20 116/53 98 12/09/16 00:00 84 12/08/16 23:39 93 Partial Rebreather 13.00 12/08/16 22:00 75 12/08/16 20:00 88 12/08/16 20:00 97.7 80 20 124/92 91 12/08/16 20:00 89 Nasal Cannula 4.00 12/08/16 19:35 90 High Flow Nasal Cannula 25.00 90 12/08/16 18:00 83 12/08/16 16:00 97.9 92 22 151/70 97 12/08/16 16:00 92 12/08/16 14:00 87 12/08/16 12:00 98.1 80 25 107/55 91 12/08/16 12:00 80 I/O 12/08/16 12/08/16 12/08/16 12/09/16 12/09/16 12/09/16 07:00 15:00 23:00 07:00 15:00 23:00 Intake Total 473 ml 1472 ml 515 ml 110 ml Output Total 500 ml 1000 ml 550 ml 950 ml Balance -27 ml 472 ml -35 ml -840 ml Intake Oral 840 ml IV Total 473 ml 632 ml 515 ml 110 ml Output Urine Total 500 ml 1000 ml 550 ml 950 ml # Bowel Movements 0 2 0 0 Laboratory Laboratory Tests Test 12/09/16 03:44 White Blood Count 10.5 Red Blood Count 3.92 Hemoglobin 12.2 Hematocrit 37.2 Mean Corpuscular Volume 95.0 Mean Corpuscular Hemoglobin 31.0 Mean Corpuscular Hemoglobin 32.7 Concent Red Cell Distribution Width 13.7 Platelet Count 155 Mean Platelet Volume 7.8 Neutrophils (%) (Auto) 91.6 Lymphocytes (%) (Auto) 3.8 Monocytes (%) (Auto) 4.6 Eosinophils (%) (Auto) 0.0 Basophils (%) (Auto) 0.0 Neutrophils # (Auto) 9.6 Lymphocytes # (Auto) 0.4 Monocytes # (Auto) 0.5 Eosinophils # (Auto) 0.0 Basophils # (Auto) 0.0 CBC Comment DIFF FINAL Differential Comment Sodium Level 140 Potassium Level 4.3 Chloride Level 104 Carbon Dioxide Level 26.2 Anion Gap 10 Blood Urea Nitrogen 14 Creatinine 0.97 Estimat Glomerular Filtration 74 Rate Random Glucose 153 Calcium Level 8.2 Phosphorus Level 3.1 Magnesium Level 2.2 Date/Time Procedure Status Source Growth 12/06/16 23:20 Legionella Antigen - Final Complete Urine Catheterized Urine PRESUMPTIVE NEGATIVE FOR LEGIONELLA P... 12/06/16 23:20 Streptococcus pneumoniae Antigen (M - Final Complete Urine Catheterized Urine PRESUMPTIVE NEGATIVE FOR STREPTOCOCCU... Imaging Last Impressions Abdomen X-Ray 12/09/16 0600 Signed Impressions: Service Date/Time: Friday, December 09, 2016 04:13 - CONCLUSION: 1. No acute findings. Colonic diverticula. Max Raymundo MD Chest X-Ray 12/08/16 0600 Signed Impressions: Service Date/Time: Thursday, December 08, 2016 02:39 - CONCLUSION: 1. Basilar airspace disease slightly increased from December 05 without significant effusion. No pneumothorax. Max Raymundo MD CT Angiography 12/06/16 0000 Signed Impressions: Service Date/Time: Tuesday, December 06, 2016 16:54 - CONCLUSION: 1. Negative for pulmonary embolus. 2. Dense consolidation left lower lobe with at least partial obstruction of the left lower lobe bronchus. This could be from mucoid impaction. A single airspace disease in the remainder of the lungs. 3. Partially calcified pleural plaques likely from prior asbestos exposure. Previous left rib fractures. Max Raymundo MD Physical Exam HEENT: Normocephalic; atraumatic; no jaundice. Throat is clear. NECK: Neck is supple, no JVD, no lymphadenopathy. CHEST: CTA CARDIAC: RRR. ABDOMEN: Soft, nondistended, mildly bloated, soft; no hepatosplenomegaly; bowel sounds are present in all four quadrants. EXTREMITIES: No clubbing, cyanosis, or edema. SKIN: Normal; no rash; no jaundice. COOK SPECIALTY: No focal deficits; alert and oriented to self (Lashell Taveras) Assessment and Plan Plan ASSESSMENT: - Mild ileus vs. PSBO. RESOLVED. Rpt. KUB (12/09/16)---> 1. No acute findings. Colonic diverticula. He was recently hospitalized at [facility] and had EGD 2 weeks ago----> esophagitis, esophageal diverticulum, and hh. She does not know if he has ever had a colonoscopy. This was most likely a mild ileus, as he has never had any abdominal surgeries and is passing stool. His repeat Xray unremarkable, no n/v, no abdominal pain, + multiple bowel movements. Cont.bowel regimen. If he starts having diarrhea, then we can back off on this. Reglan, Miralax, Senna, Colace. - GERD. Pepcid. Protonix 40mg IV BID. - Resp. Failure, COPD exacerbation, per [facility] - HTN, Hyperlipidemia, BPH per primary PLAN: - TERRY at this time - Protonix 40mg IV BID - Reglan 10mg IV q8h - Miralax 17 gram po daily - Pericolace i po bid - Further recommendations to follow based on results of above - Pt seen and examined by Dr. Narayan and myself and this note is written on his behalf (Lashell Taveras) Physician Comments Patient seen and examined Agree with above Continue with current supportive care Monitor labs Not much to add from a GI perspective We will sign off (Bhavesh Narayan MD) Lashell Taveras Dec 09, 2016 11:09 Bhavesh Narayan MD Dec 09, 2016 20:12
[2016-12-09] MEDS ORDERED: DEXT 5%-NACL 0.45% 1000 ML INJ 1,000 ML IV SCH (12:14)
[2016-12-09] MEDS ORDERED: RESP: ALBUTEROL CONC 2.5 MG/0.5 ML NEB NEB SCH (12:15)
--- NOTE | 2016-12-09 12:20 | HHI.PR ---
Subjective Remarks No SOB at rest On O2 3L.Abd Ileus. has improved. No fever. CXR was worse. Objective Vital Signs Date Time Temp Pulse Resp B/P Pulse Ox O2 Delivery O2 Flow Rate FiO2 12/09/16 07:39 92 High Flow Nasal Cannula 25.00 90 12/09/16 06:00 78 12/09/16 04:00 98.0 84 20 131/62 95 12/09/16 04:00 84 12/09/16 02:00 73 12/09/16 00:00 97.7 80 20 116/53 98 12/09/16 00:00 84 12/08/16 23:39 93 Partial Rebreather 13.00 12/08/16 22:00 75 12/08/16 20:00 88 12/08/16 20:00 97.7 80 20 124/92 91 12/08/16 20:00 89 Nasal Cannula 4.00 12/08/16 19:35 90 High Flow Nasal Cannula 25.00 90 12/08/16 18:00 83 12/08/16 16:00 97.9 92 22 151/70 97 12/08/16 16:00 92 12/08/16 14:00 87 I/O 12/08/16 12/08/16 12/08/16 12/09/16 12/09/16 12/09/16 07:00 15:00 23:00 07:00 15:00 23:00 Intake Total 473 ml 1472 ml 515 ml 110 ml Output Total 500 ml 1000 ml 550 ml 950 ml Balance -27 ml 472 ml -35 ml -840 ml Intake Oral 840 ml IV Total 473 ml 632 ml 515 ml 110 ml Output Urine Total 500 ml 1000 ml 550 ml 950 ml # Bowel Movements 0 2 0 0 Result Diagram: 12/09/16 0344 12/09/16 0344 Objective Remarks GENERAL: This elderly man is average built, mild respiratory distress. HEENT: Head is normocephalic. Pupils are reactive. Tongue is moist. Throat is clear. NECK: Supple. No bruits or thyroid enlargement. CHEST: Equal movements to percussion note, resonance throughout. Crackles heard at both lung bases with diminished breath sounds over the periphery. HEART: The heart sounds are regular S1-S2 with no murmur. No S3 gallop. ABDOMEN: The abdomen is soft, nontender. No organomegaly. Bowel sounds are active. EXTREMITIES: No edema or cyanosis. No clubbing. Peripheral pulses are diminished. Reflexes are 1+ with no gross motor deficits. NEUROLOGIC: Cranial nerves grossly intact. SKIN: No lesions noted. Assessment and Plan Assessment and Plan IMPRESSION 1. Hypercapnic respiratory failure. 2. COPD with acute exacerbation. 3. Basilar pneumonia and atelectasis. 4. Dementia. 5. History of hypertension. Plan : 1. Cont Duo Nebs qid 2. Antibiotics as ordered 3. Wean O2 to keep sat >92 4. Will schedule Bronchoscopy for AM 5. Hold anticoagulants. 6. NPO after 8 am tomorrow. Mary Ann Baker MD Dec 09, 2016 12:20
[2016-12-09] MEDS: PANTOPRAZOLE SODIUM 40 MG VIAL IV PUSH SCH ×3 (13:41→23:33)
[2016-12-09] MEDS: LEVOFLOXACIN 750 MG PREMIX INJ 150 ML IV SCH (13:49)
[2016-12-09] MEDS: RESP: ALBUTEROL 2.5 MG/IPRATROPIUM 0.5 MG NEB (PRN) NEB (16:26)
[2016-12-09] MEDS ORDERED: FUROSEMIDE 20 MG/2 ML VIAL IV PUSH ONE (20:45)
[2016-12-09] MEDS ORDERED: guaiFENesin E.R. 600 MG TAB PO SCH (21:00)
[2016-12-09] MEDS: QUEtiapine FUMARATE 25 MG TAB PO SCH (21:35)
[2016-12-10] VITALS (15 sets, daily range): BP systolic 63–144; BP diastolic 37–65; PULSE 68–87; RESP 16–23; TEMP 98–98.3; O2SAT 90–99
[2016-12-10] MEDS: RESP: ALBUTEROL 2.5 MG/IPRATROPIUM 0.5 MG NEB (SCH) NEB ×4 (03:10→14:58)
[2016-12-10] MEDS: INSULIN NovoLIN REGULAR SUPPLEMENTAL SCALE SQ SCH ×5 (04:00→20:00)
[2016-12-10 04:08] LABS: HEMATOCRIT 39.5 % (39.0-51.0); MEAN CORPUSCULAR HEMOGLOBIN 31.6 PG (27.0-34.0); MEAN CORPUSCULAR HGB CONC 33.6 % (32.0-36.0); PLATELET COUNT 166 TH/MM3 (150-450); RED CELL DISTRIBUTION WIDTH 13.8 % (11.6-17.2); REVIEW FLAG FINAL; WHITE BLOOD COUNT 16.4 TH/MM3 (4.0-11.0)
[2016-12-10 04:32] LABS: BICARBONATE 28.4 MEQ/L (21.0-32.0); MAGNESIUM 2.2 MG/DL (1.5-2.5)
[2016-12-10] MEDS: methylPREDNISolone SOD SUCC 40 MG/1 ML VIAL IV PUSH SCH ×3 (06:14→20:36)
[2016-12-10] MEDS: metroNIDAZOLE 500 MG INJ 100 ML IV SCH ×3 (06:14→20:35)
[2016-12-10] MEDS: METOCLOPRAMIDE HCL 10 MG/2 ML VIAL IV PUSH SCH ×3 (06:15→20:37)
[2016-12-10] MEDS: RESP: BUDESONIDE 0.5 MG/2 ML NEB NEB SCH ×2 (08:10→19:24)
[2016-12-10] MEDS: POLYETHYLENE GLYCOL 17 GM PKG PO SCH ×2 (09:00→09:11)
[2016-12-10] MEDS: FAMOTIDINE 20 MG TAB PO SCH ×2 (09:00→20:36)
[2016-12-10] MEDS: LACTOBACILLUS ACIDOPHILUS TAB PO SCH ×3 (09:10→17:28)
[2016-12-10] MEDS: TAMSULOSIN HCL 0.4 MG CAP PO SCH (09:10)
[2016-12-10] MEDS: DIVALPROEX SODIUM E.R. 250 MG TAB PO SCH (09:10)
[2016-12-10] MEDS: CEFEPIME INJ 2,000 MG in SODIUM CHLORIDE 0.9% INJ 100 ML IV SCH ×2 (09:10→20:35)
[2016-12-10] MEDS: ESCITALOPRAM OXALATE 10 MG TAB PO SCH (09:11)
[2016-12-10] MEDS: DOCUSATE SODIUM 50 MG/SENNA 8.6 MG TAB PO SCH ×2 (09:11→20:36)
[2016-12-10] MEDS: BUDESONIDE-FORMOTEROL 160/4.5 MCG INHALER INH SCH ×2 (09:12→20:38)
[2016-12-10] MEDS: FLUTICASONE PROPIONATE 50 MCG/ACT 16 GM NASAL SPRAY NASAL SCH ×2 (09:12→20:37)
[2016-12-10] MEDS ORDERED: TAMSULOSIN HCL 0.4 MG CAP PO SCH (11:17)
--- NOTE | 2016-12-10 11:20 | HHI.CCPN ---
Subjective Remarks/Hospital Course The patient is an 81-year-old male with past medical history of COPD on 3 liters home oxygen p.r.n., hypertension, hyperlipidemia and dementia, benign prostate hypertrophy and history of aspiration pneumonia. He was admitted to [facility] on December 04 after he was transferred from [facility] per the daughter's request for COPD exacerbation and pneumonia. The patient was placed on bronchodilators and broad-spectrum antibiotics. A chest x-ray on admission showed bibasilar consolidation more pronounced on the left. Repeat chest x-ray was performed yesterday which showed resolution of the basilar consolidation. However, diffuse interstitial prominence was noted seen throughout the left lung. The patient had an ABG on BiPAP 15/8 at 100% last night which showed mild acute hypercapnic respiratory and hypoxemic acidosis with a pH of 7.32, CO2 52, pAO2 81, bicarb 26 and saturation of 91%. He was taken off BiPAP early this morning and is currently on 50% Ventimask with saturation of 89% to 90%. The patient is awake and alert. He is out of bed and sitting in chair in mild distress. He is afebrile. Most of the history was obtained from reviewing medical records and from my discussion with the daughter. Patient is a poor historian due to his underlying dementia. He is currently being treated for pneumonia with cefepime and Levaquin. 12/07 Patient was on BIPAP 10/5 with 40% FIO2 overnight. CTA chest showed no PE. 12/08 No acute events overnight. Afebrile. Off BIPAP. 12/09 Tmax 98.1 leukocytosis, and bandemia resolved this a.m.. Flagyl was added to antibiotic medication regimen. KUB was performed this morning noting normal gas pattern no evidence of obstruction. Pharmacological DVT prophylaxis discontinued, the patient continues with mechanical, SCDs. The patient continues on high flow nasal cannula, currently at 90% to maintain O2 sat at 92% . 12/10: looks good this morning. plan for bronch in or. remains on high flow NC @ 25 L/min Objective Vital Signs Date Time Temp Pulse Resp B/P Pulse Ox O2 Delivery O2 Flow Rate FiO2 12/10/16 08:11 92 High Flow Nasal Cannula 25.00 100 12/10/16 06:00 76 12/10/16 04:00 98.0 23 137/63 Intake and Output 12/09/16 12/09/16 12/10/16 08:00 16:00 00:00 Intake Total 110 ml 1215 ml 234 ml Output Total 950 ml 1250 ml 875 ml Balance -840 ml -35 ml -641 ml Result Diagram: 12/10/16 0326 12/10/16 0326 Imaging Last Impressions Chest X-Ray 12/08/16 0600 Signed Impressions: Service Date/Time: Thursday, December 08, 2016 02:39 - CONCLUSION: 1. Basilar airspace disease slightly increased from December 05 without significant effusion. No pneumothorax. Max Raymundo MD CT Angiography 12/06/16 0000 Signed Impressions: Service Date/Time: Tuesday, December 06, 2016 16:54 - CONCLUSION: 1. Negative for pulmonary embolus. 2. Dense consolidation left lower lobe with at least partial obstruction of the left lower lobe bronchus. This could be from mucoid impaction. A single airspace disease in the remainder of the lungs. 3. Partially calcified pleural plaques likely from prior asbestos exposure. Previous left rib fractures. Max Raymundo MD Objective Remarks GENERAL: Patient is 81 yo lying in bed in NAD, pleasantly confused alert to self SKIN: Warm and dry. HEAD: Normocephalic. EYES: No scleral icterus. No injection or drainage. NECK: Supple, trachea midline. No JVD or lymphadenopathy. CARDIOVASCULAR: Regular rate and rhythm without murmurs, gallops, or rubs. RESPIRATORY: Breath sounds equal bilaterally. Mild coarse expiratory wheezes, high flow NC GASTROINTESTINAL: Abdomen soft, non-tender, nondistended. MUSCULOSKELETAL: No cyanosis, or edema. Neuro: Awake and alert. A/P Assessment and Plan 1. Acute hypercapnic and hypoxemic respiratory failure. 2. COPD exacerbation. 3. Hypertension. 4. Dementia. 5. Hyperlipidemia. 6. History of aspiration pneumonia. 7. History of arthritis. 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 GERD 10. Esophageal diverticulum 11. BPH 12. Mild ileus Plan Neuro: Monitor neuro status closely and avoid any sedatives. Continue home meds Depakote, and Lexapro Pulm: Wean down oxygen as js and maintain sats >92%. Bronchodilators, Pulmicort nebulizers q. 12, Symbicort 160/4.5 2puffs q 12 hours. Solu-Medrol 60 milligrams IV q. 8. NIPPV PRN for respiratory distress. CTA chest: Negative for PE. Dense consolidation left lower lobe with at least partial obstruction of the left lower lobe bronchus. This could be from mucoid impaction. A single airspace disease in the remainder of the lungs. Partially calcified pleural plaques likely from prior asbestos exposure Pulm eval patient is likely high risk for bronch given his resp status. Pulmonary consulted-Dr. Link Bettencourt, follow recommendations, continue to wean high flow nasal cannula plan for Bronch by pulm today. respiratory status improving daily, but slowly given his chronic lung disease. CV: Monitor HR and BP and maintain MAP >65mmHg. we'll obtain EKG for QT monitoring secondary to scheduled SSRI, and Haldol : Monitor renal function, intake and output and electrolyte replacement per protocol. Continue Paris catheter secondary to BPH, condom catheter attempted, noted retention start flomax and plan to d/c paris again after 48h. (12/12) GI: On PO diet, on Pepcid 20 mg q. 12. 12/09 KUB abdomen -normal bowel gas pattern, no evidence of obstruction or free air GI consulted-Dr. Reaves, metoclopramide added to medication regimen, the patient continues on MiraLAX. No BM, will add senna and Colace ID: Continue with abx(Cefepime and Levaquin) and monitor for signs of infection ( fever and WBCs). Flagyl added per pulmonary Sputum culture 12/04 normal respiratory alejandra. Strep pneumoniae and Legionella urinary antigens negative. Heme: Monitor CBC. Endo: SSI with Accu-Chek q. 4 hour for glycemic control GI prophylaxis with Pepcid 20 mg q. 12. DVT prophylaxis with SCDs and Lovenox 40 mg discontinued 12/08 Dispo: after bronch, will likely transfer to hospitalist service. if high flow nasal canula can be weaned down, could be stable for the floor, likely tomorrow. Eliceo Judge MD Dec 10, 2016 11:20
[2016-12-10] MEDS ORDERED: PROPOFOL 200 MG/20 ML AMP IV ONE (12:00)
[2016-12-10] MEDS ORDERED: ONDANSETRON HCL 4 MG/2 ML VIAL IV PUSH ONE (12:00)
[2016-12-10] MEDS: PANTOPRAZOLE SODIUM 40 MG VIAL IV PUSH SCH (12:34)
--- NOTE | 2016-12-10 15:19 | EKG ---
Date Performed: 12/10/2016 Time Performed: 06:20:14 PTAGE: 81 years EKG: Sinus rhythm with PAC(s). Ant/septal and lateral T wave changes may be due to myocardial Ischemia. When comparedt o previous tracing, ST-T changes are now Present in the anterior leads suggestive of anterolateral i schemia. Clinical corrrolation is suggested. Abnormal ECG PREVIOUS TRACING : 12/07/2016 21.19 DOCTOR: Leonid Hodges Interpretating Date/Time 12/10/2016 15:17:50
[2016-12-10] MEDS: LEVOFLOXACIN 750 MG PREMIX INJ 150 ML IV SCH (16:16)
[2016-12-10] MEDS ORDERED: SODIUM CHLORIDE 0.9% 20 ML VIAL ONE (16:42)
[2016-12-10] MEDS ORDERED: EPINEPHrine HCL (1:1000) 1 MG/ML VIAL ONE (16:43)
[2016-12-10] MEDS ORDERED: LIDOCAINE VISCOUS 2% SOLN 15 ML UDC ONE (16:43)
[2016-12-10] MEDS ORDERED: LIDOCAINE HCL 2% PF SOLN 10 ML VIAL ONE (16:43)
[2016-12-10] MEDS ORDERED: PROPOFOL 1000 MG/100 ML INJ 100 ML ONE (18:12)
[2016-12-10] MEDS ORDERED: RESP: ALBUTEROL 2.5 MG/3 ML NEB (PRN) NEB (18:15)
--- NOTE | 2016-12-10 18:41 | PD.PN.STU ---
Subjective Remarks Patient SOB, lethargic. On non-rebreather, sat 91-93% Objective Vitals Vital Signs Date Time Temp Pulse Resp B/P Pulse Ox O2 Delivery O2 Flow Rate FiO2 12/10/16 16:55 98.5 78 16 125/67 88 12/10/16 16:55 88 Non-Rebreather 15 12/10/16 16:00 71 12/10/16 16:00 98.0 71 19 130/61 90 12/10/16 14:00 73 12/10/16 12:00 98.3 69 23 125/55 90 12/10/16 12:00 69 12/10/16 10:00 76 12/10/16 08:11 92 High Flow Nasal Cannula 25.00 100 12/10/16 08:00 98.3 69 20 144/65 94 12/10/16 08:00 69 12/10/16 07:00 92 Nasal Cannula 12/10/16 06:00 76 12/10/16 04:00 98.0 76 23 137/63 95 12/10/16 04:00 76 12/10/16 02:00 76 12/10/16 00:00 98.2 87 20 127/60 95 12/10/16 00:00 87 12/09/16 22:00 99 12/09/16 20:00 98.4 92 28 141/65 89 12/09/16 20:00 92 12/09/16 19:50 High Flow Nasal Cannula 25.00 90 12/09/16 19:00 85 Nasal Cannula I/O 12/09/16 12/09/16 12/09/16 12/10/16 12/10/16 12/10/16 07:00 15:00 23:00 07:00 15:00 23:00 Intake Total 110 ml 1215 ml 234 ml 240 ml 287 ml Output Total 950 ml 1250 ml 875 ml 2725 ml 350 ml Balance -840 ml -35 ml -641 ml -2485 ml -63 ml Intake Oral 840 ml 100 ml 0 ml IV Total 110 ml 375 ml 134 ml 240 ml 287 ml Output Urine Total 950 ml 1250 ml 875 ml 2725 ml 350 ml # Bowel Movements 0 2 1 0 Result Diagram: 12/10/16 0326 12/10/16 0326 Objective Remarks GENERAL: This elderly man is average built, mild respiratory distress. Lethargic. HEENT: Head is normocephalic. Pupils are reactive. Tongue is moist. Throat is clear. NECK: Supple. No bruits or thyroid enlargement. CHEST: Equal movements to percussion note, resonance throughout. Crackles heard at both lung bases with diminished breath sounds over the periphery, on a non rebreather mask. HEART: The heart sounds are regular S1-S2 with no murmur. No S3 gallop. ABDOMEN: The abdomen is soft, nontender. No organomegaly. Bowel sounds are active. EXTREMITIES: No edema or cyanosis. No clubbing. Peripheral pulses are diminished. NEUROLOGIC: Cranial nerves grossly intact. SKIN: No lesions noted. A/P Assessment and Plan IMPRESSION 1. Hypercapnic respiratory failure. 2. COPD with acute exacerbation. 3. Basilar pneumonia and atelectasis. 4. Dementia. 5. History of hypertension. Plan : 1. Cont Duo Nebs qid 2. Antibiotics as ordered 3. Continue O2 N/C prn tp keep sats >92% 4. Plan for bronchoscopy this afternoon. 5. Hold anticoagulants. 6. Keep NPO. Reviewed and agree on plan . Jolene Jacobo M.D M3 Dec 10, 2016 18:41 Mary Ann Baker MD Dec 12, 2016 12:48
--- NOTE | 2016-12-10 19:05 | RADRPT ---
EXAM DATE/TIME: 12/10/2016 18:17 [place] COMPARISON: CHEST SINGLE AP, December 08, 2016, 2:39. INDICATIONS : Rule out pneumothorax. MEDICAL HISTORY : None. SURGICAL HISTORY : None. ENCOUNTER: Initial ACUITY: 1 day PAIN SCORE: Non-responsive. LOCATION: Bilateral chest FINDINGS: There is no evidence of pneumothorax. The endotracheal tube has its tip in good position 3 cm above the anita. Bibasilar patchiness is noted consistent with atelectasis and/or infiltrates. The heart is stable. There are "high-riding" humeri bilaterally suggesting rotator cuff pathology bilaterally. CONCLUSION: 1. No pneumothorax. 2. Bibasilar patchiness consistent with atelectasis and/or infiltrates. 3. Endotracheal tube in good position 3 cm above the anita. 4. "High-riding" humeri bilaterally suggesting rotator cuff pathology bilaterally. Abdulkadir Sanders MD on December 10, 2016 at 18:58 Board Certified Radiologist. This report was verified electronically.
[2016-12-10] MEDS: RESP: ALBUTEROL 2.5 MG/IPRATROPIUM 0.5 MG NEB (PRN) NEB (19:24)
[2016-12-10] MEDS ORDERED: PROPOFOL 1000 MG/100 ML IV SCH (20:30)
[2016-12-10] MEDS: QUEtiapine FUMARATE 25 MG TAB PO SCH (20:36)
[2016-12-10] MEDS: fentaNYL DRIP 250 ML IV SCH (21:09)
[2016-12-11] VITALS (18 sets, daily range): BP systolic 100–153; BP diastolic 55–103; PULSE 60–148; RESP 12–16; TEMP 98–98.4; O2SAT 95–98
[2016-12-11] MEDS: PANTOPRAZOLE SODIUM 40 MG VIAL IV PUSH SCH ×2 (00:07→11:48)
[2016-12-11] MEDS: INSULIN NovoLIN REGULAR SUPPLEMENTAL SCALE SQ SCH ×6 (04:00→20:00)
[2016-12-11] MEDS: METOCLOPRAMIDE HCL 10 MG/2 ML VIAL IV PUSH SCH ×3 (05:22→21:54)
[2016-12-11] MEDS: metroNIDAZOLE 500 MG INJ 100 ML IV SCH ×3 (05:22→21:53)
[2016-12-11] MEDS: methylPREDNISolone SOD SUCC 40 MG/1 ML VIAL IV PUSH SCH ×3 (05:23→21:54)
[2016-12-11] MEDS: BUDESONIDE-FORMOTEROL 160/4.5 MCG INHALER INH SCH ×2 (07:34→21:00)
[2016-12-11] MEDS: FLUTICASONE PROPIONATE 50 MCG/ACT 16 GM NASAL SPRAY NASAL SCH ×2 (07:35→21:00)
[2016-12-11] MEDS ORDERED: MIDAZOLAM HCL 5 MG/ML VIAL (1 ML) ONE (07:56)
[2016-12-11] MEDS: LACTOBACILLUS ACIDOPHILUS TAB PO SCH ×3 (08:35→18:00)
[2016-12-11] MEDS: POLYETHYLENE GLYCOL 17 GM PKG PO SCH (08:36)
[2016-12-11] MEDS: ESCITALOPRAM OXALATE 10 MG TAB PO SCH (08:36)
[2016-12-11] MEDS: DOCUSATE SODIUM 50 MG/SENNA 8.6 MG TAB PO SCH ×2 (08:36→21:53)
[2016-12-11] MEDS: FAMOTIDINE 20 MG TAB PO SCH ×2 (08:36→21:53)
[2016-12-11] MEDS: fentaNYL DRIP 250 ML IV SCH (08:37)
[2016-12-11] MEDS: CEFEPIME INJ 2,000 MG in SODIUM CHLORIDE 0.9% INJ 100 ML IV SCH ×2 (08:37→21:53)
[2016-12-11] MEDS: DIVALPROEX SODIUM E.R. 250 MG TAB PO SCH (09:00)
[2016-12-11] MEDS: TAMSULOSIN HCL 0.4 MG CAP PO SCH (09:00)
[2016-12-11] MEDS: RESP: ALBUTEROL 2.5 MG/IPRATROPIUM 0.5 MG NEB (PRN) NEB ×3 (09:02→19:54)
[2016-12-11] MEDS: RESP: BUDESONIDE 0.5 MG/2 ML NEB NEB SCH ×2 (09:02→19:55)
[2016-12-11] MEDS ORDERED: MIDAZOLAM HCL 2 MG/2 ML VIAL IV ONE (09:45)
[2016-12-11] MEDS: LEVOFLOXACIN 750 MG PREMIX INJ 150 ML IV SCH (15:43)
--- NOTE | 2016-12-11 19:04 | HHI.CCPN ---
Subjective Remarks/Hospital Course The patient is an 81-year-old male with past medical history of COPD on 3 liters home oxygen p.r.n., hypertension, hyperlipidemia and dementia, benign prostate hypertrophy and history of aspiration pneumonia. He was admitted to [facility] on December 04 after he was transferred from [facility] per the daughter's request for COPD exacerbation and pneumonia. The patient was placed on bronchodilators and broad-spectrum antibiotics. A chest x-ray on admission showed bibasilar consolidation more pronounced on the left. Repeat chest x-ray was performed yesterday which showed resolution of the basilar consolidation. However, diffuse interstitial prominence was noted seen throughout the left lung. The patient had an ABG on BiPAP 15/8 at 100% last night which showed mild acute hypercapnic respiratory and hypoxemic acidosis with a pH of 7.32, CO2 52, pAO2 81, bicarb 26 and saturation of 91%. He was taken off BiPAP early this morning and is currently on 50% Ventimask with saturation of 89% to 90%. The patient is awake and alert. He is out of bed and sitting in chair in mild distress. He is afebrile. Most of the history was obtained from reviewing medical records and from my discussion with the daughter. Patient is a poor historian due to his underlying dementia. He is currently being treated for pneumonia with cefepime and Levaquin. 12/07 Patient was on BIPAP 10/5 with 40% FIO2 overnight. CTA chest showed no PE. 12/08 No acute events overnight. Afebrile. Off BIPAP. 12/09 Tmax 98.1 leukocytosis, and bandemia resolved this a.m.. Flagyl was added to antibiotic medication regimen. KUB was performed this morning noting normal gas pattern no evidence of obstruction. Pharmacological DVT prophylaxis discontinued, the patient continues with mechanical, SCDs. The patient continues on high flow nasal cannula, currently at 90% to maintain O2 sat at 92% . 12/10: looks good this morning. plan for bronch in or. remains on high flow NC @ 25 L/min 12/11: went for bronch yesterday. came back intubated because could not be weaned post-procedure to extubate. this morning, significantly somnolent. failed CPAP for apnea. Objective Vital Signs Date Time Temp Pulse Resp B/P Pulse Ox O2 Delivery O2 Flow Rate FiO2 12/11/16 18:00 64 12/11/16 17:25 98 40 12/11/16 16:00 98.4 12 147/65 12/11/16 07:00 Mechanical Ventilator 12/10/16 16:55 15 Intake and Output 12/10/16 12/10/16 12/11/16 08:00 16:00 00:00 Intake Total 240 ml 287 ml 660 ml Output Total 2725 ml 350 ml 410 ml Balance -2485 ml -63 ml 250 ml Result Diagram: 12/10/16 0326 12/10/16 0326 Imaging Last Impressions Chest X-Ray 12/08/16 0600 Signed Impressions: Service Date/Time: Thursday, December 08, 2016 02:39 - CONCLUSION: 1. Basilar airspace disease slightly increased from December 05 without significant effusion. No pneumothorax. Max Raymundo MD CT Angiography 12/06/16 0000 Signed Impressions: Service Date/Time: Tuesday, December 06, 2016 16:54 - CONCLUSION: 1. Negative for pulmonary embolus. 2. Dense consolidation left lower lobe with at least partial obstruction of the left lower lobe bronchus. This could be from mucoid impaction. A single airspace disease in the remainder of the lungs. 3. Partially calcified pleural plaques likely from prior asbestos exposure. Previous left rib fractures. Max Raymundo MD Objective Remarks GENERAL: Patient is 81 yo lying in bed intubated, somnolent. arousable. SKIN: Warm and dry. HEAD: Normocephalic. EYES: No scleral icterus. No injection or drainage. NECK: trachea midline. No JVD. CARDIOVASCULAR: Regular rate and rhythm. RESPIRATORY: orotracheally intubated. Breath sounds equal bilaterally. Mild coarse expiratory wheezes. PRVC, fio2 45% GASTROINTESTINAL: Abdomen soft, non-tender, nondistended. MUSCULOSKELETAL: No cyanosis, or edema. Neuro: RASS -2. awakens and follows commands. A/P Assessment and Plan 1. Acute hypercapnic and hypoxemic respiratory failure. 2. COPD exacerbation. 3. Hypertension. 4. Dementia. 5. Hyperlipidemia. 6. History of aspiration pneumonia. 7. History of arthritis. 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 GERD 10. Esophageal diverticulum 11. BPH 12. Mild ileus Plan Neuro: Monitor neuro status closely and avoid long acting sedatives. Continue home meds Depakote, and Lexapro. fentanyl for goal RASS 0. Pulm: Wean down oxygen as js and maintain sats >92%. Bronchodilators, Pulmicort nebulizers q. 12, Symbicort 160/4.5 2puffs q 12 hours. Solu-Medrol 60 milligrams IV q. 8. when patient is more awake, pursue SBT. currently failing for apnea and somnolence. CTA chest: Negative for PE. Dense consolidation left lower lobe with at least partial obstruction of the left lower lobe bronchus. This could be from mucoid impaction. A single airspace disease in the remainder of the lungs. Partially calcified pleural plaques likely from prior asbestos exposure Pulm eval patient is likely high risk for bronch given his resp status. Pulmonary consulted-Dr. Link Bettencourt s/p elective bronchoscopy 12/[address] Baker. CV: Monitor HR and BP and maintain MAP >65mmHg. : Monitor renal function, intake and output and electrolyte replacement per protocol. Continue Calles catheter secondary to BPH, condom catheter attempted, noted retention change flomax to a anti-bph med that can go per NGT. GI: start TF, jevity 1.5 @ 20, goal of 50., on Pepcid 20 mg q. 12. 12/09 KUB abdomen -normal bowel gas pattern, no evidence of obstruction or free air GI consulted-Dr. Reaves, metoclopramide added to medication regimen, the patient continues on MiraLAX. will add senna and Colace ID: Continue with abx(Cefepime and Levaquin) and monitor for signs of infection ( fever and WBCs). Flagyl added per pulmonary Sputum culture 12/04 normal respiratory alejandra. Strep pneumoniae and Legionella urinary antigens negative. Heme: Monitor CBC. Endo: SSI with Accu-Chek q. 4 hour for glycemic control GI prophylaxis with Pepcid 20 mg q. 12. DVT prophylaxis with SCDs and start SQH. Dispo: remain in the ICU. OVERALL IMPRESSION: severe chronic lung disease now with mechanical ventilation and possible pneumonia vs. exacerbation. given comorbid lung disease, we may not be able to successfully separate him from ventilator. will attempt daily SBTs. I have discussed these risks with his daughter at bedside. Eliceo Judge MD Dec 11, 2016 19:04
[2016-12-11] MEDS: DOXAZOSIN MESYLATE 2 MG TAB PO SCH (20:00)
[2016-12-11] MEDS: DIVALPROEX SODIUM SPRINKLES 125 MG CAP PO SCH (21:53)
[2016-12-11] MEDS: QUEtiapine FUMARATE 25 MG TAB PO SCH (21:53)
[2016-12-12] VITALS (17 sets, daily range): BP systolic 91–146; BP diastolic 48–76; PULSE 62–78; RESP 15–18; TEMP 98–98.8; O2SAT 64–97
[2016-12-12] MEDS: INSULIN NovoLIN REGULAR SUPPLEMENTAL SCALE SQ SCH ×6 (04:00→21:15)
[2016-12-12] MEDS: METOCLOPRAMIDE HCL 10 MG/2 ML VIAL IV PUSH SCH ×3 (05:51→22:22)
[2016-12-12] MEDS: metroNIDAZOLE 500 MG INJ 100 ML IV SCH ×3 (05:51→22:22)
[2016-12-12] MEDS: methylPREDNISolone SOD SUCC 40 MG/1 ML VIAL IV PUSH SCH ×3 (05:51→22:22)
--- NOTE | 2016-12-12 07:55 | HHI.CCPN ---
Subjective Remarks/Hospital Course The patient is an 81-year-old male with past medical history of COPD on 3 liters home oxygen p.r.n., hypertension, hyperlipidemia and dementia, benign prostate hypertrophy and history of aspiration pneumonia. He was admitted to [facility] on December 04 after he was transferred from [facility] per the daughter's request for COPD exacerbation and pneumonia. The patient was placed on bronchodilators and broad-spectrum antibiotics. A chest x-ray on admission showed bibasilar consolidation more pronounced on the left. Repeat chest x-ray was performed yesterday which showed resolution of the basilar consolidation. However, diffuse interstitial prominence was noted seen throughout the left lung. The patient had an ABG on BiPAP 15/8 at 100% last night which showed mild acute hypercapnic respiratory and hypoxemic acidosis with a pH of 7.32, CO2 52, pAO2 81, bicarb 26 and saturation of 91%. He was taken off BiPAP early this morning and is currently on 50% Ventimask with saturation of 89% to 90%. The patient is awake and alert. He is out of bed and sitting in chair in mild distress. He is afebrile. Most of the history was obtained from reviewing medical records and from my discussion with the daughter. Patient is a poor historian due to his underlying dementia. He is currently being treated for pneumonia with cefepime and Levaquin. 12/07 Patient was on BIPAP 10/5 with 40% FIO2 overnight. CTA chest showed no PE. 12/08 No acute events overnight. Afebrile. Off BIPAP. 12/09 Tmax 98.1 leukocytosis, and bandemia resolved this a.m.. Flagyl was added to antibiotic medication regimen. KUB was performed this morning noting normal gas pattern no evidence of obstruction. Pharmacological DVT prophylaxis discontinued, the patient continues with mechanical, SCDs. The patient continues on high flow nasal cannula, currently at 90% to maintain O2 sat at 92% . 12/10: looks good this morning. plan for bronch in or. remains on high flow NC @ 25 L/min 12/11: went for bronch yesterday. came back intubated because could not be weaned post-procedure to extubate. this morning, significantly somnolent. failed CPAP for apnea. 12/12: failed sbt yesterday for apnea and somnolence. this morning more awake. leukocytosis persists but afebrile. BALs growing gram negative rods, speciation to follow. Objective Vital Signs Date Time Temp Pulse Resp B/P Pulse Ox O2 Delivery O2 Flow Rate FiO2 12/12/16 06:00 64 12/12/16 04:02 93 40 12/12/16 04:00 98.0 15 111/51 12/11/16 19:00 Mechanical Ventilator 12/10/16 16:55 15 Intake and Output 12/11/16 12/11/16 12/12/16 08:00 16:00 00:00 Intake Total 310 ml 478 ml 350 ml Output Total 250 ml 200 ml 500 ml Balance 60 ml 278 ml -150 ml Result Diagram: 12/10/16 0326 12/10/16 0326 Imaging Last Impressions Chest X-Ray 12/08/16 0600 Signed Impressions: Service Date/Time: Thursday, December 08, 2016 02:39 - CONCLUSION: 1. Basilar airspace disease slightly increased from December 05 without significant effusion. No pneumothorax. Max Raymundo MD CT Angiography 12/06/16 0000 Signed Impressions: Service Date/Time: Tuesday, December 06, 2016 16:54 - CONCLUSION: 1. Negative for pulmonary embolus. 2. Dense consolidation left lower lobe with at least partial obstruction of the left lower lobe bronchus. This could be from mucoid impaction. A single airspace disease in the remainder of the lungs. 3. Partially calcified pleural plaques likely from prior asbestos exposure. Previous left rib fractures. Max Raymundo MD Objective Remarks GENERAL: Patient is 81 yo lying in bed intubated, more awake this morning. SKIN: Warm and dry. HEAD: Normocephalic. EYES: No scleral icterus. No injection or drainage. NECK: trachea midline. No JVD. CARDIOVASCULAR: Regular rate and rhythm. RESPIRATORY: orotracheally intubated. Breath sounds equal bilaterally. Mild coarse expiratory wheezes. PSV 10/5/40% GASTROINTESTINAL: Abdomen soft, non-tender, nondistended. MUSCULOSKELETAL: No cyanosis, or edema. Neuro: RASS -1. awakens and follows commands. A/P Assessment and Plan 1. Acute hypercapnic and hypoxemic respiratory failure. 2. COPD exacerbation. 3. Hypertension. 4. Dementia. 5. Hyperlipidemia. 6. History of aspiration pneumonia. 7. History of arthritis. 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 GERD 10. Esophageal diverticulum 11. BPH 12. Mild ileus Plan Neuro: Monitor neuro status closely and avoid long acting sedatives. Continue home meds Depakote, and Lexapro. fentanyl for goal RASS 0,currently on hold. Pulm: Wean down oxygen as js and maintain sats >92%. Bronchodilators, Pulmicort nebulizers q. 12, Symbicort 160/4.5 2puffs q 12 hours. Solu-Medrol 60 milligrams IV q. 8. SBT today. will pursue extubation if he passes. CTA chest: Negative for PE. Dense consolidation left lower lobe with at least partial obstruction of the left lower lobe bronchus. This could be from mucoid impaction. A single airspace disease in the remainder of the lungs. Partially calcified pleural plaques likely from prior asbestos exposure Pulm eval patient is likely high risk for bronch given his resp status. Pulmonary consulted-Dr. Link Bettencourt s/p elective bronchoscopy 12/[address] Baker. CV: Monitor HR and BP and maintain MAP >65mmHg. : Monitor renal function, intake and output and electrolyte replacement per protocol. Continue Paris catheter secondary to BPH, condom catheter attempted, noted retention doxazosin for bph. plan to remove paris catheter tomorrow. GI: TF currently on hold due to SBT and possible extubation., on Pepcid 20 mg q. 12. 12/09 KUB abdomen -normal bowel gas pattern, no evidence of obstruction or free air GI consulted-Dr. Reaves, metoclopramide added to medication regimen, the patient continues on MiraLAX, senna and Colace ID: Continue with abx(Cefepime and Levaquin) and monitor for signs of infection ( fever and WBCs). Flagyl added per pulmonary Sputum culture 12/04 normal respiratory alejandra. Strep pneumoniae and Legionella urinary antigens negative. Heme: Monitor CBC. Endo: SSI with Accu-Chek q. 4 hour for glycemic control GI prophylaxis with Pepcid 20 mg q. 12. DVT prophylaxis with SCDs and SQH. Dispo: remain in the ICU. OVERALL IMPRESSION: severe chronic lung disease now with mechanical ventilation and possible pneumonia vs. exacerbation. given comorbid lung disease, we may not be able to successfully separate him from ventilator. will attempt daily SBTs. I have discussed these risks with his daughter at bedside. Eliceo Judge MD Dec 12, 2016 07:55
[2016-12-12] MEDS: RESP: BUDESONIDE 0.5 MG/2 ML NEB NEB SCH ×2 (07:57→20:46)
[2016-12-12] MEDS: RESP: ALBUTEROL 2.5 MG/IPRATROPIUM 0.5 MG NEB (PRN) NEB ×2 (07:57→15:12)
[2016-12-12] MEDS: DOCUSATE SODIUM 50 MG/SENNA 8.6 MG TAB PO SCH ×2 (08:18→21:16)
[2016-12-12] MEDS: LACTOBACILLUS ACIDOPHILUS TAB PO SCH ×3 (08:18→18:00)
[2016-12-12] MEDS: ESCITALOPRAM OXALATE 10 MG TAB PO SCH (08:18)
[2016-12-12] MEDS: DOXAZOSIN MESYLATE 2 MG TAB PO SCH (08:18)
[2016-12-12] MEDS: FAMOTIDINE 20 MG TAB PO SCH ×2 (08:18→21:17)
[2016-12-12] MEDS: DIVALPROEX SODIUM SPRINKLES 125 MG CAP PO SCH ×2 (08:18→21:16)
[2016-12-12] MEDS: POLYETHYLENE GLYCOL 17 GM PKG PO SCH (08:19)
[2016-12-12] MEDS: BUDESONIDE-FORMOTEROL 160/4.5 MCG INHALER INH SCH ×2 (08:19→21:16)
[2016-12-12] MEDS: CEFEPIME INJ 2,000 MG in SODIUM CHLORIDE 0.9% INJ 100 ML IV SCH ×2 (08:19→21:15)
[2016-12-12] MEDS: FLUTICASONE PROPIONATE 50 MCG/ACT 16 GM NASAL SPRAY NASAL SCH ×2 (08:20→21:16)
[2016-12-12] MEDS: PANTOPRAZOLE SODIUM 40 MG VIAL IV PUSH SCH ×2 (11:47)
--- NOTE | 2016-12-12 12:45 | HHI.PR ---
Subjective Remarks Extubated today. Now on N/C at 4l. Alert talking. No fever. Objective Vital Signs Date Time Temp Pulse Resp B/P Pulse Ox O2 Delivery O2 Flow Rate FiO2 12/12/16 12:30 94 Nasal Cannula 4.00 12/12/16 12:30 64 Nasal Cannula 4 12/12/16 12:00 77 12/12/16 12:00 98.4 64 16 116/55 91 12/12/16 10:00 68 12/12/16 08:00 98.7 78 18 146/65 96 12/12/16 08:00 62 12/12/16 07:57 40 12/12/16 07:00 90 Mechanical Ventilator 35 12/12/16 06:00 64 12/12/16 04:02 93 40 12/12/16 04:00 64 12/12/16 04:00 98.0 64 15 111/51 91 12/12/16 02:00 62 12/12/16 01:02 94 40 12/12/16 00:00 78 12/12/16 00:00 98.4 78 15 126/60 97 12/11/16 22:00 60 12/11/16 20:00 64 12/11/16 20:00 98.1 64 15 132/57 98 12/11/16 19:55 97 40 12/11/16 19:00 Mechanical Ventilator 60 12/11/16 18:00 64 12/11/16 17:25 98 40 12/11/16 17:25 40 12/11/16 16:00 98.4 66 12 147/65 96 12/11/16 16:00 66 12/11/16 14:00 81 I/O 12/11/16 12/11/16 12/11/16 12/12/16 12/12/16 12/12/16 07:00 15:00 23:00 07:00 15:00 23:00 Intake Total 310 ml 478 ml 350 ml 532 ml Output Total 250 ml 200 ml 500 ml 175 ml Balance 60 ml 278 ml -150 ml 357 ml Intake Oral 0 ml 0 ml 0 ml IV Total 310 ml 478 ml 350 ml 194 ml Tube Feeding 338 ml Output Urine Total 250 ml 200 ml 500 ml 175 ml # Bowel Movements 0 0 0 0 Result Diagram: 12/10/16 0326 12/10/16 0326 Objective Remarks GENERAL: This elderly man is averagely built, in no distress. HEENT: Head is normocephalic. Pupils are reactive. Tongue is moist. Throat is clear. NECK: Supple. No bruits or thyroid enlargement. CHEST: Equal movements to percussion note, resonance throughout. Crackles heard at both lung bases with diminished breath sounds over the periphery. HEART: The heart sounds are regular S1-S2 with no murmur. No S3 gallop. ABDOMEN: The abdomen is soft, nontender. No organomegaly. Bowel sounds are active. EXTREMITIES: No edema or cyanosis. No clubbing. Peripheral pulses are diminished. Reflexes are 1+ with no gross motor deficits. NEUROLOGIC: Cranial nerves grossly intact. SKIN: No lesions noted. Assessment and Plan Assessment and Plan IMPRESSION 1. Hypercapnic respiratory failure. 2. COPD with acute exacerbation. 3. Basilar pneumonia and atelectasis. 4. Dementia. 5. History of hypertension. Plan : 1. Cont Duo Nebs qid 2. Antibiotics as ordered 3. Wean O2 to keep sat >92 4. Add mucomyst 2 CC 20 % qid 5. Cont anticoagulants. 6. CXR in am 7. PT and OT evaluation Mary Ann Baker MD Dec 12, 2016 12:45
--- NOTE | 2016-12-12 13:44 | RADRPT ---
EXAM DATE/TIME: 12/12/2016 13:08 [facility] COMPARISON: CHEST SINGLE AP, December 10, 2016, 18:17. INDICATIONS : Evaluate for pneumonia post bronchoscopy. MEDICAL HISTORY : None. SURGICAL HISTORY : None. ENCOUNTER: Initial ACUITY: 1 day PAIN SCORE: Non-responsive. LOCATION: Bilateral chest FINDINGS: The heart remains minimally enlarged. Mild ischemia persists. There is no alveolar consolidation, p leural effusion or pneumothorax. CONCLUSION: Cardiomegaly with mild interstitial edema, substantially improved from 12/10/2016. Stan Meza MD FACR on December 12, 2016 at 13:41 Board Certified Radiologist. This report was verified electronically.
[2016-12-12] MEDS: LEVOFLOXACIN 750 MG PREMIX INJ 150 ML IV SCH (15:18)
[2016-12-12] MEDS: RESP: ACETYLCYSTEINE 20% 30 ML NEB NEB SCH ×2 (16:00→20:47)
[2016-12-12] MEDS: QUEtiapine FUMARATE 25 MG TAB PO SCH (21:16)
[2016-12-13] VITALS (14 sets, daily range): BP systolic 109–148; BP diastolic 53–73; PULSE 52–70; RESP 12–26; TEMP 97.7–98.7; O2SAT 90–97
[2016-12-13] MEDS: INSULIN NovoLIN REGULAR SUPPLEMENTAL SCALE SQ SCH ×6 (04:00→21:04)
[2016-12-13] MEDS: RESP: ALBUTEROL 2.5 MG/IPRATROPIUM 0.5 MG NEB (PRN) NEB (05:09)
[2016-12-13] MEDS: RESP: ACETYLCYSTEINE 20% 30 ML NEB NEB SCH ×3 (05:09→20:15)
[2016-12-13] MEDS: metroNIDAZOLE 500 MG INJ 100 ML IV SCH ×3 (06:20→22:07)
[2016-12-13] MEDS: methylPREDNISolone SOD SUCC 40 MG/1 ML VIAL IV PUSH SCH ×3 (06:20→21:03)
[2016-12-13] MEDS: METOCLOPRAMIDE HCL 10 MG/2 ML VIAL IV PUSH SCH ×3 (06:20→22:06)
[2016-12-13] MEDS: RESP: BUDESONIDE 0.5 MG/2 ML NEB NEB SCH ×2 (08:38→20:15)
--- NOTE | 2016-12-13 08:38 | HHI.PR ---
Subjective Remarks Director Loss Prevention Notes: The patient is an 81-year-old male with past medical history of COPD on 3 liters home oxygen p.r.n., hypertension, hyperlipidemia and dementia, benign prostate hypertrophy and history of aspiration pneumonia. He was admitted to [facility] on December 04 after he was transferred from [facility] per the daughter's request for COPD exacerbation and pneumonia. The patient was placed on bronchodilators and broad-spectrum antibiotics. A chest x-ray on admission showed bibasilar consolidation more pronounced on the left. Repeat chest x-ray was performed yesterday which showed resolution of the basilar consolidation. However, diffuse interstitial prominence was noted seen throughout the left lung. The patient had an ABG on BiPAP 15/8 at 100% last night which showed mild acute hypercapnic respiratory and hypoxemic acidosis with a pH of 7.32, CO2 52, pAO2 81, bicarb 26 and saturation of 91%. He was taken off BiPAP early this morning and is currently on 50% Ventimask with saturation of 89% to 90%. The patient is awake and alert. He is out of bed and sitting in chair in mild distress. He is afebrile. Most of the history was obtained from reviewing medical records and from my discussion with the daughter. Patient is a poor historian due to his underlying dementia. He is currently being treated for pneumonia with cefepime and Levaquin. 12/07 Patient was on BIPAP 10/5 with 40% FIO2 overnight. CTA chest showed no PE. 12/08 No acute events overnight. Afebrile. Off BIPAP. 12/09 Tmax 98.1 leukocytosis, and bandemia resolved this a.m.. Flagyl was added to antibiotic medication regimen. KUB was performed this morning noting normal gas pattern no evidence of obstruction. Pharmacological DVT prophylaxis discontinued, the patient continues with mechanical, SCDs. The patient continues on high flow nasal cannula, currently at 90% to maintain O2 sat at 92% . 12/10: looks good this morning. plan for bronch in or. remains on high flow NC @ 25 L/min 12/11: went for bronch yesterday. came back intubated because could not be weaned post-procedure to extubate. this morning, significantly somnolent. failed CPAP for apnea. 12/12: failed sbt yesterday for apnea and somnolence. this morning more awake. leukocytosis persists but afebrile. BALs growing gram negative rods, speciation to follow. Hospitalist Notes: 12/13: Seen in the room in the presence of nurse Miss Cox and her Daughter Mrs. Hdez Legal Guardian and her Mr. Kenji Darby gave me her phone number if she is needed [phone], improving condition. continue antibiotics, senior loss control specialist in to see the patient. Objective Vital Signs Date Time Temp Pulse Resp B/P Pulse Ox O2 Delivery O2 Flow Rate FiO2 12/13/16 08:00 52 12/13/16 07:00 91 Nasal Cannula 4.00 12/13/16 06:00 58 12/13/16 04:00 61 12/13/16 04:00 98.4 61 16 109/55 90 12/13/16 02:00 64 12/13/16 00:00 98.7 56 14 110/53 94 12/13/16 00:00 56 12/12/16 22:00 63 12/12/16 20:51 93 Nasal Cannula 4.00 12/12/16 20:00 70 12/12/16 20:00 98.8 70 18 91/48 88 12/12/16 20:00 88 Nasal Cannula 6.00 12/12/16 18:00 74 12/12/16 16:04 97 Nasal Cannula 3 12/12/16 16:04 97 Nasal Cannula 3.00 12/12/16 16:00 98.0 69 18 115/76 91 12/12/16 16:00 63 12/12/16 14:00 65 12/12/16 12:30 94 Nasal Cannula 4.00 12/12/16 12:30 64 Nasal Cannula 4 12/12/16 12:00 77 12/12/16 12:00 98.4 64 16 116/55 91 12/12/16 10:00 68 I/O 12/12/16 12/12/16 12/12/16 12/13/16 12/13/16 12/13/16 07:00 15:00 23:00 07:00 15:00 23:00 Intake Total 532 ml 398 ml 583 ml 214 ml Output Total 175 ml 550 ml 325 ml 375 ml Balance 357 ml -152 ml 258 ml -161 ml Intake Oral 0 ml 120 ml 360 ml 30 ml IV Total 194 ml 278 ml 223 ml 184 ml Tube Feeding 338 ml Output Urine Total 175 ml 550 ml 325 ml 375 ml # Bowel Movements 0 0 1 Result Diagram: 12/10/16 0326 12/10/16 0326 Imaging Last Impressions Chest X-Ray 12/12/16 0000 Signed Impressions: Service Date/Time: Monday, December 12, 2016 13:08 - CONCLUSION: Cardiomegaly with mild interstitial edema, substantially improved from 12/10/2016. Stan Meza MD FACR Abdomen X-Ray 12/09/16 0600 Signed Impressions: Service Date/Time: Friday, December 09, 2016 04:13 - CONCLUSION: 1. No acute findings. Colonic diverticula. Max Raymundo MD CT Angiography 12/06/16 0000 Signed Impressions: Service Date/Time: Tuesday, December 06, 2016 16:54 - CONCLUSION: 1. Negative for pulmonary embolus. 2. Dense consolidation left lower lobe with at least partial obstruction of the left lower lobe bronchus. This could be from mucoid impaction. A single airspace disease in the remainder of the lungs. 3. Partially calcified pleural plaques likely from prior asbestos exposure. Previous left rib fractures. Max Raymundo MD Procedures Endotracheal intubation and extubation. Other Results Laboratory Tests Test 12/09/16 12/10/16 03:44 03:26 Neutrophils (%) (Auto) 91.6 % Lymphocytes (%) (Auto) 3.8 % Monocytes (%) (Auto) 4.6 % Eosinophils (%) (Auto) 0.0 % Basophils (%) (Auto) 0.0 % Neutrophils # (Auto) 9.6 TH/MM3 Lymphocytes # (Auto) 0.4 TH/MM3 Monocytes # (Auto) 0.5 TH/MM3 Eosinophils # (Auto) 0.0 TH/MM3 Basophils # (Auto) 0.0 TH/MM3 CBC Comment DIFF FINAL Differential Comment White Blood Count 16.4 TH/MM3 Red Blood Count 4.20 MIL/MM3 Hemoglobin 13.3 GM/DL Hematocrit 39.5 % Mean Corpuscular Volume 94.0 FL Mean Corpuscular Hemoglobin 31.6 PG Mean Corpuscular Hemoglobin 33.6 % Concent Red Cell Distribution Width 13.8 % Platelet Count 166 TH/MM3 Mean Platelet Volume 7.8 FL Sodium Level 136 MEQ/L Potassium Level 4.0 MEQ/L Chloride Level 99 MEQ/L Carbon Dioxide Level 28.4 MEQ/L Anion Gap 9 MEQ/L Blood Urea Nitrogen 15 MG/DL Creatinine 0.97 MG/DL Estimat Glomerular Filtration 74 ML/MIN Rate Random Glucose 157 MG/DL Calcium Level 8.9 MG/DL Phosphorus Level 2.5 MG/DL Magnesium Level 2.2 MG/DL Objective Remarks GENERAL: No acute distress. SKIN: Warm and dry. HEAD: Normocephalic. EYES: No scleral icterus. No injection or drainage. NECK: trachea midline. No JVD. CARDIOVASCULAR: Regular rate and rhythm. RESPIRATORY: Decreased breath sounds bilateral. No Wheezing or crackles. GASTROINTESTINAL: Abdomen soft, non-tender, nondistended. MUSCULOSKELETAL: No cyanosis, or edema. NEUROLOGY: Alert and oriented, no focal deficits. A/P Assessment and Plan 1. Acute hypercapnic and hypoxemic respiratory failure. 2. COPD exacerbation. 3. Hypertension. 4. Dementia. 5. Hyperlipidemia. 6. History of aspiration pneumonia. 7. History of arthritis. 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 GERD 10. Esophageal diverticulum 11. BPH 12. Mild ileus Plan Neuro: Monitor neuro status closely and avoid long acting sedatives. Continue home meds Depakote, and Lexapro. fentanyl for goal RASS 0,currently on hold. Pulm: Wean down oxygen as js and maintain sats >92%. Bronchodilators, Pulmicort nebulizers q. 12, Symbicort 160/4.5 2puffs q 12 hours. Solu-Medrol 60 milligrams IV q. 8. SBT today. will pursue extubation if he passes. CTA chest: Negative for PE. Dense consolidation left lower lobe with at least partial obstruction of the left lower lobe bronchus. This could be from mucoid impaction. A single airspace disease in the remainder of the lungs. Partially calcified pleural plaques likely from prior asbestos exposure Pulm eval patient is likely high risk for bronch given his resp status. Pulmonary consulted-Dr. Link Bettencourt s/p elective bronchoscopy 12/[address] Baker. CV: Monitor HR and BP and maintain MAP >65mmHg. : Monitor renal function, intake and output and electrolyte replacement per protocol. Continue Paris catheter secondary to BPH, condom catheter attempted, noted retention doxazosin for bph. plan to remove paris catheter tomorrow. GI: TF currently on hold due to SBT and possible extubation., on Pepcid 20 mg q. 12. 12/09 KUB abdomen -normal bowel gas pattern, no evidence of obstruction or free air GI consulted-Dr. Reaves, metoclopramide added to medication regimen, the patient continues on MiraLAX, senna and Colace ID: Continue with abx(Cefepime and Levaquin) and monitor for signs of infection ( fever and WBCs). Flagyl added per pulmonary Sputum culture 12/04 normal respiratory alejandra. Strep pneumoniae and Legionella urinary antigens negative. Heme: Monitor CBC. Endo: SSI with Accu-Chek q. 4 hour for glycemic control GI prophylaxis with Pepcid 20 mg q. 12. DVT prophylaxis with SCDs and SQH. Dispo: remain in the ICU. OVERALL IMPRESSION: severe chronic lung disease now with mechanical ventilation and possible pneumonia vs. exacerbation. given comorbid lung disease, we may not be able to successfully separate him from ventilator. will attempt daily SBTs. I have discussed these risks with his daughter at bedside. Eliceo Judge MD Dec 12, 2016 07:55 Addendum: Eliceo Judge MD on 12/12/16 @ 17:55 successfully extubated. doing well. nursing bedside swallow eval and advance diet. OOB, PT consult. would keep in ICU at minimum overnight. will re-eval in AM. if he continues to improve, might be able to leave ICU tomorrow. will consult hospitalist service. Medications and IVs Current Medications Medications (Trade) Dose Ordered Sig/Dank Route Start Time Stop Time Status Last Admin Miscellaneous Information Patient in critical care unit? Ass... [id number] XX 12/03/16 21:45 (Pepcid) 20 mg Q12HR PO 12/04/16 09:00 12/12/16 21:17 (Norvasc) 5 mg DAILY PO 12/04/16 09:00 Hold 12/06/16 10:40 Divalproex Sodium 250 mg 250 mg DAILY PO 12/04/16 09:00 Hold 12/10/16 09:10 (Maxipime Inj/NS Inj) 100 ml @ 200 mls/hr Q12HR IV 12/04/16 09:00 12/12/16 21:15 (Lactinex) 1 tab TID PO 12/04/16 09:00 12/12/16 18:00 (SEROquel) 25 mg HS PO 12/04/16 21:00 12/12/16 21:16 (Lexapro) 5 mg DAILY PO 12/04/16 09:00 12/12/16 08:18 Miscellaneous 1 ea 1 ea UNSCH PRN OTHER 12/04/16 08:30 (Levaquin 750 Mg Premix Inj) 150 ml @ 100 mls/hr Q24H IV 12/04/16 15:00 12/12/16 15:18 (Flonase Raghav Spr) 1 spray BID NASAL 12/05/16 13:00 12/12/16 21:16 (Symbicort 160-4.5 Inh) 2 puff Q12HR INH 12/06/16 21:00 12/12/16 21:16 (D50w (Vial) Inj) 25 ml UNSCH PRN IV PUSH 12/06/16 15:30 Insulin Human Regular 1 1 Q4H SQ 12/06/16 16:00 12/12/16 21:15 Potassium Chloride 100 ml @ 50 mls/hr Q2H PRN IV 12/08/16 08:15 Potassium Chloride 100 ml @ 50 mls/hr Q2H PRN IV 12/08/16 08:15 Potassium Chloride 100 ml @ 25 mls/hr UNSCH PRN IV 12/08/16 08:15 Potassium Chloride 100 ml @ 50 mls/hr Q2H PRN IV 12/08/16 08:15 (Magnesium Sulfate Inj/NS Inj) 100 ml @ 50 mls/hr UNSCH PRN IV 12/08/16 08:15 Magnesium Oxide 800 mg 800 mg UNSCH PRN PO 12/08/16 08:15 (Magnesium Sulfate Inj/NS Inj) 100 ml @ 50 mls/hr UNSCH PRN IV 12/08/16 08:15 Potassium Phosphate 2000 mg 2,000 mg Q4H PRN PO 12/08/16 08:15 12/08/16 19:20 (Sodium Phosphate Inj/NS 250 ml Inj) 250 ml @ 42 mls/hr UNSCH PRN IV 12/08/16 08:15 Potassium Phosphate 2000 mg 2,000 mg UNSCH PRN PO/TUBE 12/08/16 08:15 (Potassium Phosphate Inj/NS 250 ml Inj) 260 ml @ 42 mls/hr UNSCH PRN IV 12/08/16 08:15 (Miralax) 17 gm DAILY PO 12/08/16 11:45 12/12/16 08:19 Metoclopramide HCl 5 mg 5 mg Q8HR IV PUSH 12/08/16 14:00 12/13/16 06:20 (Flagyl 500 Mg Inj) 100 ml @ 100 mls/hr Q8H IV 12/08/16 14:00 12/13/16 06:20 Senna/Docusate Sodium 1 tab 1 tab BID PO 12/09/16 09:00 12/12/16 21:16 (D5W-09/14 NS 1000 ml Inj) 1,000 ml @ 0 mls/hr Q0M IV 12/09/16 12:14 (Cardura) 2 mg DAILY PO 12/11/16 20:00 12/12/16 08:18 (Depakote Sprinkles) 125 mg BID PO 12/11/16 21:00 12/12/16 21:16 (SoluMEDROL INJ) 40 mg Q8HR IV PUSH 12/12/16 14:00 12/13/16 06:20 A/P Assessment and Plan 1. VDRF Improved as per Critical care as Acute Hypercapnic and Hypoxemic Respiratory failure continue Bronchodilator, Mucolytic, incentive spirometry, on Symbicort every 12 hours, Solu Medrol, Just extubated yesterday, CTA negative for PE, senior loss control specialist following, Dr Baker status post Bronchoscopy 12/10. recommended by senior loss control specialist to continue antibiotics titrate Steroids. 2 COPD exacerbation 3. Hypertension controlled. 4. Dementia stable 5. Hyperlipidemia by history 6. Aspiration Pneumonia on Cefepime and Levaquin Flagyl added per senior loss control specialist, Sputum culture 12/04 normal respiratory alejandra, Strep Pneumoniae and Legionella urinary antigens negative. 7. OA by history 8. GERD on Gastric protection. 9. Calcified Pleural Plaques likely from prior asbestos exposure 10. Mild Ileus GI specialist Following. Dr. Bhavesh Narayan added metoclopramide, MiraLAX, Senna and Colace 11. Seizure disorder on hold his Depakote due to Encephalopathy GI prophylaxis with Pepcid 20 mg q. 12. DVT prophylaxis with SCDs and Heparin. Discharge Planning when clear by Specialists Michael Espinoza MD Dec 13, 2016 08:38 not be able to successfully separate him from ventilator. will attempt daily SBTs. I have discussed these risks with his daughter at bedside. Eliceo Judge MD Dec 12, 2016 07:55 Addendum: Eliceo Judge MD on 12/12/16 @ 17:55 successfully extubated. doing well. nursing bedside swallow eval and advance diet. OOB, PT consult. would keep in ICU at minimum overnight. will re-eval in AM. if he continues to improve, might be able to leave ICU tomorrow. will consult hospitalist service. Michael Espinoza MD Dec 13, 2016 08:38
[2016-12-13] MEDS: LACTOBACILLUS ACIDOPHILUS TAB PO SCH ×3 (08:54→16:54)
[2016-12-13] MEDS: BUDESONIDE-FORMOTEROL 160/4.5 MCG INHALER INH SCH ×2 (08:54→21:04)
[2016-12-13] MEDS: FLUTICASONE PROPIONATE 50 MCG/ACT 16 GM NASAL SPRAY NASAL SCH ×2 (08:54→21:04)
[2016-12-13] MEDS: POLYETHYLENE GLYCOL 17 GM PKG PO SCH (08:54)
[2016-12-13] MEDS: FAMOTIDINE 20 MG TAB PO SCH ×2 (08:54→21:03)
[2016-12-13] MEDS: DOCUSATE SODIUM 50 MG/SENNA 8.6 MG TAB PO SCH ×2 (08:54→21:00)
[2016-12-13] MEDS: ESCITALOPRAM OXALATE 10 MG TAB PO SCH (08:54)
[2016-12-13] MEDS: CEFEPIME INJ 2,000 MG in SODIUM CHLORIDE 0.9% INJ 100 ML IV SCH ×2 (08:55→21:05)
[2016-12-13] MEDS: DOXAZOSIN MESYLATE 2 MG TAB PO SCH (08:55)
[2016-12-13] MEDS: DIVALPROEX SODIUM SPRINKLES 125 MG CAP PO SCH ×2 (08:55→21:03)
--- NOTE | 2016-12-13 13:27 | HHI.PR ---
Subjective Remarks Alert and up in bed. Now on N/C at 3 L. Good output. Objective Vital Signs Date Time Temp Pulse Resp B/P Pulse Ox O2 Delivery O2 Flow Rate FiO2 12/13/16 10:00 58 12/13/16 08:40 93 Nasal Cannula 6.00 12/13/16 08:00 52 12/13/16 08:00 98.3 60 12 126/73 90 12/13/16 07:00 91 Nasal Cannula 4.00 12/13/16 06:00 58 12/13/16 04:00 61 12/13/16 04:00 98.4 61 16 109/55 90 12/13/16 02:00 64 12/13/16 00:00 98.7 56 14 110/53 94 12/13/16 00:00 56 12/12/16 22:00 63 12/12/16 20:51 93 Nasal Cannula 4.00 12/12/16 20:00 70 12/12/16 20:00 98.8 70 18 91/48 88 12/12/16 20:00 88 Nasal Cannula 6.00 12/12/16 18:00 74 12/12/16 16:04 97 Nasal Cannula 3 12/12/16 16:04 97 Nasal Cannula 3.00 12/12/16 16:00 98.0 69 18 115/76 91 12/12/16 16:00 63 12/12/16 14:00 65 I/O 12/12/16 12/12/16 12/12/16 12/13/16 12/13/16 12/13/16 07:00 15:00 23:00 07:00 15:00 23:00 Intake Total 532 ml 398 ml 583 ml 214 ml Output Total 175 ml 550 ml 325 ml 375 ml Balance 357 ml -152 ml 258 ml -161 ml Intake Oral 0 ml 120 ml 360 ml 30 ml IV Total 194 ml 278 ml 223 ml 184 ml Tube Feeding 338 ml Output Urine Total 175 ml 550 ml 325 ml 375 ml # Bowel Movements 0 0 1 Result Diagram: 12/10/16 0326 12/10/16 0326 Procedures Endotracheal intubation and extubation. Objective Remarks GENERAL: This elderly man is averagely built, in no distress. HEENT: Head is normocephalic. Pupils are reactive. Tongue is moist. Throat is clear. NECK: Supple. No bruits or thyroid enlargement. CHEST: Equal movements to percussion note, resonant throughout. Crackles heard at both lung bases with diminished breath sounds over the periphery. HEART: The heart sounds are regular S1-S2 with no murmur. No S3 gallop. ABDOMEN: The abdomen is soft, nontender. No organomegaly. Bowel sounds are active. EXTREMITIES: No edema or cyanosis. No clubbing. Peripheral pulses are diminished. Reflexes are 1+ with no gross motor deficits. NEUROLOGIC: Cranial nerves grossly intact. SKIN: No lesions noted. Assessment and Plan Assessment and Plan IMPRESSION 1. Hypercapnic respiratory failure. 2. COPD with acute exacerbation. 3. Basilar pneumonia and atelectasis. 4. Dementia. 5. History of hypertension. Plan : 1. Cont Duo Nebs qid 2. Antibiotics as ordered 3. Wean O2 to keep sat >92 4. CBC,BMP in am 5. Cont anticoagulants. 6. CXR in am 7. PT and OT evaluation 8. Taper steroids. Mary Ann Baker MD Dec 13, 2016 13:27
[2016-12-13] MEDS: LEVOFLOXACIN 750 MG PREMIX INJ 150 ML IV SCH (16:55)
[2016-12-13] MEDS: QUEtiapine FUMARATE 25 MG TAB PO SCH (21:03)
[2016-12-14] VITALS (11 sets, daily range): BP systolic 124–135; BP diastolic 56–68; PULSE 51–80; RESP 12–16; TEMP 97.2–98.7; O2SAT 90–96
[2016-12-14] MEDS: RESP: ALBUTEROL 2.5 MG/IPRATROPIUM 0.5 MG NEB (PRN) NEB ×2 (03:45→07:28)
[2016-12-14] MEDS: RESP: ACETYLCYSTEINE 20% 30 ML NEB NEB SCH ×2 (03:45→07:28)
[2016-12-14] MEDS: INSULIN NovoLIN REGULAR SUPPLEMENTAL SCALE SQ SCH ×7 (04:00→23:50)
[2016-12-14] MEDS: metroNIDAZOLE 500 MG INJ 100 ML IV SCH ×3 (05:37→22:36)
[2016-12-14] MEDS: METOCLOPRAMIDE HCL 10 MG/2 ML VIAL IV PUSH SCH ×3 (05:38→20:39)
--- NOTE | 2016-12-14 06:09 | RADRPT ---
EXAM DATE/TIME: 12/14/2016 04:08 [facility] COMPARISON: CHEST SINGLE AP, December 12, 2016, 13:08. INDICATIONS : Shortness of breath, possible pulmonary disease. MEDICAL HISTORY : Hypertension. Chronic obstructive pulmonary disease. SURGICAL HISTORY : None. ENCOUNTER: Subsequent ACUITY: 1 week PAIN SCORE: Non-responsive. LOCATION: Bilateral chest FINDINGS: A single portable frontal view the chest shows a small right lower lobe infiltrate. Left lung is hiram r. Heart is normal in size. Bony structures are unremarkable. CONCLUSION: Small right lower lobe infiltrate. Alberto Mirza Jr., MD on December 14, 2016 at 6:06 Board Certified Radiologist. This report was verified electronically.
[2016-12-14] MEDS: RESP: BUDESONIDE 0.5 MG/2 ML NEB NEB SCH ×2 (07:28→21:28)
[2016-12-14] MEDS: POLYETHYLENE GLYCOL 17 GM PKG PO SCH (09:00)
[2016-12-14] MEDS: FLUTICASONE PROPIONATE 50 MCG/ACT 16 GM NASAL SPRAY NASAL SCH ×2 (09:10→20:48)
[2016-12-14] MEDS: BUDESONIDE-FORMOTEROL 160/4.5 MCG INHALER INH SCH ×2 (09:10→20:48)
[2016-12-14] MEDS: CEFEPIME INJ 2,000 MG in SODIUM CHLORIDE 0.9% INJ 100 ML IV SCH ×2 (09:10→20:41)
[2016-12-14] MEDS: LACTOBACILLUS ACIDOPHILUS TAB PO SCH ×3 (09:10→16:52)
[2016-12-14] MEDS: FAMOTIDINE 20 MG TAB PO SCH ×2 (09:11→20:39)
[2016-12-14] MEDS: DIVALPROEX SODIUM SPRINKLES 125 MG CAP PO SCH ×2 (09:11→20:41)
[2016-12-14] MEDS: DOCUSATE SODIUM 50 MG/SENNA 8.6 MG TAB PO SCH ×2 (09:11→20:39)
[2016-12-14] MEDS: ESCITALOPRAM OXALATE 10 MG TAB PO SCH (09:11)
[2016-12-14] MEDS: DOXAZOSIN MESYLATE 2 MG TAB PO SCH (09:11)
[2016-12-14] MEDS: methylPREDNISolone SOD SUCC 40 MG/1 ML VIAL IV PUSH SCH ×2 (09:11→20:38)
--- NOTE | 2016-12-14 09:18 | HHI.PR ---
Subjective Remarks Certified Medical Transcriptionist Notes: The patient is an 81-year-old male with past medical history of COPD on 3 liters home oxygen p.r.n., hypertension, hyperlipidemia and dementia, benign prostate hypertrophy and history of aspiration pneumonia. He was admitted to [facility] on December 04 after he was transferred from [facility] per the daughter's request for COPD exacerbation and pneumonia. The patient was placed on bronchodilators and broad-spectrum antibiotics. A chest x-ray on admission showed bibasilar consolidation more pronounced on the left. Repeat chest x-ray was performed yesterday which showed resolution of the basilar consolidation. However, diffuse interstitial prominence was noted seen throughout the left lung. The patient had an ABG on BiPAP 15/8 at 100% last night which showed mild acute hypercapnic respiratory and hypoxemic acidosis with a pH of 7.32, CO2 52, pAO2 81, bicarb 26 and saturation of 91%. He was taken off BiPAP early this morning and is currently on 50% Ventimask with saturation of 89% to 90%. The patient is awake and alert. He is out of bed and sitting in chair in mild distress. He is afebrile. Most of the history was obtained from reviewing medical records and from my discussion with the daughter. Patient is a poor historian due to his underlying dementia. He is currently being treated for pneumonia with cefepime and Levaquin. 12/07 Patient was on BIPAP 10/5 with 40% FIO2 overnight. CTA chest showed no PE. 12/08 No acute events overnight. Afebrile. Off BIPAP. 12/09 Tmax 98.1 leukocytosis, and bandemia resolved this a.m.. Flagyl was added to antibiotic medication regimen. KUB was performed this morning noting normal gas pattern no evidence of obstruction. Pharmacological DVT prophylaxis discontinued, the patient continues with mechanical, SCDs. The patient continues on high flow nasal cannula, currently at 90% to maintain O2 sat at 92% . 12/10: looks good this morning. plan for bronch in or. remains on high flow NC @ 25 L/min 12/11: went for bronch yesterday. came back intubated because could not be weaned post-procedure to extubate. this morning, significantly somnolent. failed CPAP for apnea. 12/12: failed sbt yesterday for apnea and somnolence. this morning more awake. leukocytosis persists but afebrile. BALs growing gram negative rods, speciation to follow. Hospitalist Notes: 12/13: Seen in the room in the presence of nurse Miss Cox and her Daughter Mrs. Hdez Legal Guardian and her Mr. Kenji Darby gave me her phone number if she is needed [phone], improving condition. continue antibiotics, sales operations specialist in to see the patient. 12/14: Patient stable in his bedroom, seen in the presence of his Daughter Mrs. Ketty Darby all questions answered, seen with Speech Therapy specialist and with nurse Miss Mcconnell, her Phosphorus was replaced, no nausea, vomit or diarrhea as per Doctor Green to transfer to Medical Floor, I agree. Objective Vital Signs Date Time Temp Pulse Resp B/P Pulse Ox O2 Delivery O2 Flow Rate FiO2 12/14/16 07:28 94 Nasal Cannula 4.00 12/14/16 06:00 52 12/14/16 05:30 95 Nasal Cannula 4.00 12/14/16 04:30 88 Nasal Cannula 5.00 12/14/16 04:00 98.3 52 16 124/56 95 12/14/16 04:00 52 12/14/16 02:00 51 12/14/16 00:00 98.7 58 16 133/63 94 12/14/16 00:00 58 12/13/16 22:00 65 12/13/16 20:16 97 Nasal Cannula 4.00 12/13/16 20:00 63 12/13/16 20:00 97 Nasal Cannula 4.00 12/13/16 20:00 98.6 63 20 122/59 97 12/13/16 18:00 67 12/13/16 16:00 62 12/13/16 16:00 97.7 70 22 133/63 92 12/13/16 14:00 64 12/13/16 12:00 60 12/13/16 12:00 98.0 64 26 148/64 96 12/13/16 10:00 58 I/O 12/13/16 12/13/16 12/13/16 12/14/16 12/14/16 12/14/16 07:00 15:00 23:00 07:00 15:00 23:00 Intake Total 214 ml 725 ml 341 ml 265 ml Output Total 375 ml 500 ml 225 ml 525 ml Balance -161 ml 225 ml 116 ml -260 ml Intake Oral 30 ml 500 ml 120 ml 0 ml IV Total 184 ml 225 ml 221 ml 265 ml Output Urine Total 375 ml 500 ml 225 ml 525 ml # Bowel Movements 1 2 1 0 Result Diagram: 12/10/16 0326 12/10/16 0326 Imaging Last Impressions Chest X-Ray 12/14/16 0600 Signed Impressions: Service Date/Time: Wednesday, December 14, 2016 04:08 - CONCLUSION: Small right lower lobe infiltrate. Alberto Mirza Jr., MD Abdomen X-Ray 12/09/16 06 Signed Impressions: Service Date/Time: Friday, December 09, 2016 04:13 - CONCLUSION: 1. No acute findings. Colonic diverticula. Max Raymundo MD CT Angiography 12/06/16 0000 Signed Impressions: Service Date/Time: Tuesday, December 06, 2016 16:54 - CONCLUSION: 1. Negative for pulmonary embolus. 2. Dense consolidation left lower lobe with at least partial obstruction of the left lower lobe bronchus. This could be from mucoid impaction. A single airspace disease in the remainder of the lungs. 3. Partially calcified pleural plaques likely from prior asbestos exposure. Previous left rib fractures. Max Raymundo MD Procedures Endotracheal intubation and extubation. Other Results Laboratory Tests Test 12/10/16 03:26 White Blood Count 16.4 TH/MM3 Red Blood Count 4.20 MIL/MM3 Hemoglobin 13.3 GM/DL Hematocrit 39.5 % Mean Corpuscular Volume 94.0 FL Mean Corpuscular Hemoglobin 31.6 PG Mean Corpuscular Hemoglobin 33.6 % Concent Red Cell Distribution Width 13.8 % Platelet Count 166 TH/MM3 Mean Platelet Volume 7.8 FL Sodium Level 136 MEQ/L Potassium Level 4.0 MEQ/L Chloride Level 99 MEQ/L Carbon Dioxide Level 28.4 MEQ/L Anion Gap 9 MEQ/L Blood Urea Nitrogen 15 MG/DL Creatinine 0.97 MG/DL Estimat Glomerular Filtration 74 ML/MIN Rate Random Glucose 157 MG/DL Calcium Level 8.9 MG/DL Phosphorus Level 2.5 MG/DL Magnesium Level 2.2 MG/DL Objective Remarks GENERAL: No acute distress. SKIN: Warm and dry. HEAD: Normocephalic. EYES: No scleral icterus. No injection or drainage. NECK: trachea midline. No JVD. CARDIOVASCULAR: Regular rate and rhythm. RESPIRATORY: Decreased breath sounds bilateral. No Wheezing or crackles. GASTROINTESTINAL: Abdomen soft, non-tender, nondistended. MUSCULOSKELETAL: No cyanosis, or edema. NEUROLOGY: Alert and oriented in person, Pleasantly demented. A/P Assessment and Plan 1. Acute hypercapnic and hypoxemic respiratory failure. 2. COPD exacerbation. 3. Hypertension. 4. Dementia. 5. Hyperlipidemia. 6. History of aspiration pneumonia. 7. History of arthritis. 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 GERD 10. Esophageal diverticulum 11. BPH 12. Mild ileus Plan Neuro: Monitor neuro status closely and avoid long acting sedatives. Continue home meds Depakote, and Lexapro. fentanyl for goal RASS 0,currently on hold. Pulm: Wean down oxygen as js and maintain sats >92%. Bronchodilators, Pulmicort nebulizers q. 12, Symbicort 160/4.5 2puffs q 12 hours. Solu-Medrol 60 milligrams IV q. 8. SBT today. will pursue extubation if he passes. CTA chest: Negative for PE. Dense consolidation left lower lobe with at least partial obstruction of the left lower lobe bronchus. This could be from mucoid impaction. A single airspace disease in the remainder of the lungs. Partially calcified pleural plaques likely from prior asbestos exposure Pulm eval patient is likely high risk for bronch given his resp status. Pulmonary consulted-Dr. Link Bettencourt s/p elective bronchoscopy 12/[address] Baker. CV: Monitor HR and BP and maintain MAP >65mmHg. : Monitor renal function, intake and output and electrolyte replacement per protocol. Continue Paris catheter secondary to BPH, condom catheter attempted, noted retention doxazosin for bph. plan to remove paris catheter tomorrow. GI: TF currently on hold due to SBT and possible extubation., on Pepcid 20 mg q. 12. 12/09 KUB abdomen -normal bowel gas pattern, no evidence of obstruction or free air GI consulted-Dr. Reaves, metoclopramide added to medication regimen, the patient continues on MiraLAX, senna and Colace ID: Continue with abx(Cefepime and Levaquin) and monitor for signs of infection ( fever and WBCs). Flagyl added per pulmonary Sputum culture 12/04 normal respiratory alejandra. Strep pneumoniae and Legionella urinary antigens negative. Heme: Monitor CBC. Endo: SSI with Accu-Chek q. 4 hour for glycemic control GI prophylaxis with Pepcid 20 mg q. 12. DVT prophylaxis with SCDs and SQH. Dispo: remain in the ICU. OVERALL IMPRESSION: severe chronic lung disease now with mechanical ventilation and possible pneumonia vs. exacerbation. given comorbid lung disease, we may not be able to successfully separate him from ventilator. will attempt daily SBTs. I have discussed these risks with his daughter at bedside. Eliceo Judge MD Dec 12, 2016 07:55 Addendum: Eliceo Judge MD on 12/12/16 @ 17:55 successfully extubated. doing well. nursing bedside swallow eval and advance diet. OOB, PT consult. would keep in ICU at minimum overnight. will re-eval in AM. if he continues to improve, might be able to leave ICU tomorrow. will consult hospitalist service. Medications and IVs Current Medications Medications (Trade) Dose Ordered Sig/Dank Route Start Time Stop Time Status Last Admin Miscellaneous Information Patient in critical care unit? Ass... [id number] XX 12/03/16 21:45 (Pepcid) 20 mg Q12HR PO 12/04/16 09:00 12/14/16 09:11 (Norvasc) 5 mg DAILY PO 12/04/16 09:00 Hold 12/06/16 10:40 Divalproex Sodium 250 mg 250 mg DAILY PO 12/04/16 09:00 Hold 12/10/16 09:10 (Maxipime Inj/NS Inj) 100 ml @ 200 mls/hr Q12HR IV 12/04/16 09:00 12/14/16 09:10 (Lactinex) 1 tab TID PO 12/04/16 09:00 12/14/16 09:10 (SEROquel) 25 mg HS PO 12/04/16 21:00 12/13/16 21:03 (Lexapro) 5 mg DAILY PO 12/04/16 09:00 12/14/16 09:11 Miscellaneous 1 ea 1 ea UNSCH PRN OTHER 12/04/16 08:30 (Levaquin 750 Mg Premix Inj) 150 ml @ 100 mls/hr Q24H IV 12/04/16 15:00 4/2/17 16:55 (Flonase Raghav Spr) 1 spray BID NASAL 12/05/16 13:00 12/14/16 09:10 (Symbicort 160-4.5 Inh) 2 puff Q12HR INH 12/06/16 21:00 12/14/16 09:10 (D50w (Vial) Inj) 25 ml UNSCH PRN IV PUSH 12/06/16 15:30 Insulin Human Regular 1 1 Q4H SQ 12/06/16 16:00 12/13/16 21:04 Potassium Chloride 100 ml @ 50 mls/hr Q2H PRN IV 12/08/16 08:15 Potassium Chloride 100 ml @ 50 mls/hr Q2H PRN IV 12/08/16 08:15 Potassium Chloride 100 ml @ 25 mls/hr UNSCH PRN IV 12/08/16 08:15 Potassium Chloride 100 ml @ 50 mls/hr Q2H PRN IV 12/08/16 08:15 (Magnesium Sulfate Inj/NS Inj) 100 ml @ 50 mls/hr UNSCH PRN IV 12/08/16 08:15 Magnesium Oxide 800 mg 800 mg UNSCH PRN PO 12/08/16 08:15 (Magnesium Sulfate Inj/NS Inj) 100 ml @ 50 mls/hr UNSCH PRN IV 12/08/16 08:15 Potassium Phosphate 2000 mg 2,000 mg Q4H PRN PO 12/08/16 08:15 12/08/16 19:20 (Sodium Phosphate Inj/NS 250 ml Inj) 250 ml @ 42 mls/hr UNSCH PRN IV 12/08/16 08:15 Potassium Phosphate 2000 mg 2,000 mg UNSCH PRN PO/TUBE 12/08/16 08:15 (Potassium Phosphate Inj/NS 250 ml Inj) 260 ml @ 42 mls/hr UNSCH PRN IV 12/08/16 08:15 (Miralax) 17 gm DAILY PO 12/08/16 11:45 12/13/16 08:54 Metoclopramide HCl 5 mg 5 mg Q8HR IV PUSH 12/08/16 14:00 12/14/16 05:38 (Flagyl 500 Mg Inj) 100 ml @ 100 mls/hr Q8H IV 12/08/16 14:00 12/14/16 05:37 Senna/Docusate Sodium 1 tab 1 tab BID PO 12/09/16 09:00 12/14/16 09:11 (D5W-1/2 NS 1000 ml Inj) 1,000 ml @ 0 mls/hr Q0M IV 12/09/16 12:14 (Cardura) 2 mg DAILY PO 12/11/16 20:00 12/14/16 09:11 (Depakote Sprinkles) 125 mg BID PO 12/11/16 21:00 12/14/16 09:11 (SoluMEDROL INJ) 40 mg BID IV PUSH 12/13/16 21:00 12/14/16 09:11 A/P Assessment and Plan 1. VDRF Improved as per Critical care as Acute Hypercapnic and Hypoxemic Respiratory failure continue Bronchodilator, Mucolytic, incentive spirometry, on Symbicort every 12 hours, Solu Medrol, Just extubated yesterday, CTA negative for PE, sales operations specialist following, Dr Baker status post Bronchoscopy 12/10. recommended by sales operations specialist to continue antibiotics titrate Steroids. 2 COPD exacerbation improved. 3. Hypertension controlled. 4. Dementia stable 5. Hyperlipidemia by history 6. Aspiration Pneumonia on Cefepime and Levaquin, Flagyl added per sales operations specialist, Sputum culture 12/04 normal respiratory alejandra, Strep Pneumoniae and Legionella urinary antigens negative. 7. OA by history 8. GERD on Gastric protection. 9. Calcified Pleural Plaques likely from prior asbestos exposure 10. Mild Ileus GI specialist Following. Dr. Bhavesh Narayan added metoclopramide, MiraLAX, Senna and Colace 11. Seizure disorder on hold his Depakote due to Encephalopathy 12. Hypophosphatemia corrected today. GI prophylaxis with Pepcid 20 mg q. 12. DVT prophylaxis with SCDs and Heparin. discussed in the room with patient, Speech therapy, Nurse Miss Mcconnell and his Daughter Mrs. Ketty Estrella all questions answered to the best of my abilities. Discharge Planning when clear by Specialists Michael Espinoza MD Dec 14, 2016 09:18
[2016-12-14 10:16] LABS: AUTOMATED NEUTROPHIL # 6.9 TH/MM3 (1.8-7.7); BASOPHIL % 0.2 % (0.0-2.0); EOSINOPHIL % 0.1 % (0.0-4.0); HEMATOCRIT 41.8 % (39.0-51.0); LYMPH % 9.8 % (9.0-44.0); LYMPHOCYTE # 0.8 TH/MM3 (1.0-4.8); MEAN CELL VOLUME 93.6 FL (80.0-100.0); MEAN CORPUSCULAR HEMOGLOBIN 31.7 PG (27.0-34.0); MEAN CORPUSCULAR HGB CONC 33.8 % (32.0-36.0); MONO % 4.7 % (0.0-8.0); NEUT % 85.2 % (16.0-70.0); PLATELET COUNT 136 TH/MM3 (150-450); RED BLOOD COUNT 4.47 MIL/MM3 (4.50-5.90); RED CELL DISTRIBUTION WIDTH 13.7 % (11.6-17.2); WHITE BLOOD COUNT 8.1 TH/MM3 (4.0-11.0)
[2016-12-14 10:18] LABS: HEMO FLAGS AUTO DIFF
[2016-12-14 10:31] LABS: BICARBONATE 28.5 MEQ/L (21.0-32.0); MAGNESIUM 2.4 MG/DL (1.5-2.5); POTASSIUM 3.8 MEQ/L (3.5-5.1)
[2016-12-14 10:46] LABS: NEUTROPHIL # MANUAL DIFF 7.3 TH/MM3 (1.8-7.7); PLATELET ESTIMATE SMEAR LOW (NORMAL); POLYS (SEG NEUTROPHILS) 90 % (16-70); WBC DIFF SAMPLE 100
[2016-12-14 10:47] LABS: PLATELET MORPHOLOGY NORMAL (NORMAL); SCAN/DIFF FINAL DIFF MANUAL
[2016-12-14] MEDS ORDERED: POTASSIUM PHOSPHATE INJ 21 MMOL in SODIUM CHLORIDE 0.9% INJ 150 ML IV ONE (12:00)
[2016-12-14] MEDS: LEVOFLOXACIN 750 MG PREMIX INJ 150 ML IV SCH (15:38)
--- NOTE | 2016-12-14 19:44 | HHI.PR ---
Subjective Remarks Alert and up in bed. Now on N/C at 2 L. CXR is better. Taking a PO diet Objective Vital Signs Date Time Temp Pulse Resp B/P Pulse Ox O2 Delivery O2 Flow Rate FiO2 12/14/16 16:00 98.3 71 16 135/63 96 12/14/16 12:00 97.2 63 12 125/68 94 12/14/16 10:00 67 12/14/16 10:00 67 12/14/16 08:00 58 12/14/16 08:00 98.5 58 15 135/60 90 12/14/16 07:28 94 Nasal Cannula 4.00 12/14/16 07:00 90 Nasal Cannula 4.00 12/14/16 06:00 52 12/14/16 05:30 95 Nasal Cannula 4.00 12/14/16 04:30 88 Nasal Cannula 5.00 12/14/16 04:00 98.3 52 16 124/56 95 12/14/16 04:00 52 12/14/16 02:00 51 12/14/16 00:00 98.7 58 16 133/63 94 12/14/16 00:00 58 12/13/16 22:00 65 12/13/16 20:16 97 Nasal Cannula 4.00 12/13/16 20:00 63 12/13/16 20:00 97 Nasal Cannula 4.00 12/13/16 20:00 98.6 63 20 122/59 97 I/O 12/13/16 12/13/16 12/13/16 12/14/16 12/14/16 12/14/16 07:00 15:00 23:00 07:00 15:00 23:00 Intake Total 214 ml 725 ml 341 ml 265 ml 580 ml Output Total 375 ml 500 ml 225 ml 525 ml 350 ml Balance -161 ml 225 ml 116 ml -260 ml 230 ml Intake Oral 30 ml 500 ml 120 ml 0 ml 480 ml IV Total 184 ml 225 ml 221 ml 265 ml 100 ml Output Urine Total 375 ml 500 ml 225 ml 525 ml 350 ml # Bowel Movements 1 2 1 0 1 Result Diagram: 12/14/1659 12/14/1659 Procedures Endotracheal intubation and extubation. Objective Remarks GENERAL: This elderly man is averagely built, in no distress. HEENT: Head is normocephalic. Pupils are reactive. Tongue is moist. Throat is clear. NECK: Supple. No bruits or thyroid enlargement. CHEST: Equal movements to percussion note, resonant throughout. Occ wheeze heard HEART: The heart sounds are regular S1-S2 with no murmur. No S3 gallop. ABDOMEN: The abdomen is soft, nontender. No organomegaly. Bowel sounds are active. EXTREMITIES: No edema or cyanosis. No clubbing. Peripheral pulses are diminished. Reflexes are 1+ with no gross motor deficits. NEUROLOGIC: No deficit SKIN: No lesions noted. Assessment and Plan Assessment and Plan IMPRESSION 1. Hypercapnic respiratory failure. 2. COPD with acute exacerbation. 3. Basilar pneumonia and atelectasis. 4. Dementia. 5. History of hypertension. Plan : 1. Cont Duo Nebs qid 2. Antibiotics as ordered 3. Wean O2 to keep sat >92 4. BMP in am 5. Cont anticoagulants. 6. IS at bedside qid 7. PT and OT evaluation 8. Taper steroids. Mary Ann Baker MD Dec 14, 2016 19:44
[2016-12-14] MEDS: QUEtiapine FUMARATE 25 MG TAB PO SCH (20:39)
[2016-12-15] VITALS (9 sets, daily range): BP systolic 110–155; BP diastolic 58–96; PULSE 55–75; RESP 18–20; TEMP 97.1–98.9; O2SAT 90–95
[2016-12-15] MEDS: INSULIN NovoLIN REGULAR SUPPLEMENTAL SCALE SQ SCH ×5 (04:00→20:00)
[2016-12-15] MEDS: METOCLOPRAMIDE HCL 10 MG/2 ML VIAL IV PUSH SCH ×3 (05:58→20:31)
[2016-12-15] MEDS: metroNIDAZOLE 500 MG INJ 100 ML IV SCH (05:58)
[2016-12-15] MEDS: RESP: BUDESONIDE 0.5 MG/2 ML NEB NEB SCH ×2 (07:48→19:11)
--- NOTE | 2016-12-15 08:18 | HHI.PR ---
Subjective Remarks Neon Molder Notes: The patient is an 81-year-old male with past medical history of COPD on 3 liters home oxygen p.r.n., hypertension, hyperlipidemia and dementia, benign prostate hypertrophy and history of aspiration pneumonia. He was admitted to [facility] on December 04 after he was transferred from [facility] per the daughter's request for COPD exacerbation and pneumonia. The patient was placed on bronchodilators and broad-spectrum antibiotics. A chest x-ray on admission showed bibasilar consolidation more pronounced on the left. Repeat chest x-ray was performed yesterday which showed resolution of the basilar consolidation. However, diffuse interstitial prominence was noted seen throughout the left lung. The patient had an ABG on BiPAP 15/8 at 100% last night which showed mild acute hypercapnic respiratory and hypoxemic acidosis with a pH of 7.32, CO2 52, pAO2 81, bicarb 26 and saturation of 91%. He was taken off BiPAP early this morning and is currently on 50% Ventimask with saturation of 89% to 90%. The patient is awake and alert. He is out of bed and sitting in chair in mild distress. He is afebrile. Most of the history was obtained from reviewing medical records and from my discussion with the daughter. Patient is a poor historian due to his underlying dementia. He is currently being treated for pneumonia with cefepime and Levaquin. 12/07 Patient was on BIPAP 10/5 with 40% FIO2 overnight. CTA chest showed no PE. 12/08 No acute events overnight. Afebrile. Off BIPAP. 12/09 Tmax 98.1 leukocytosis, and bandemia resolved this a.m.. Flagyl was added to antibiotic medication regimen. KUB was performed this morning noting normal gas pattern no evidence of obstruction. Pharmacological DVT prophylaxis discontinued, the patient continues with mechanical, SCDs. The patient continues on high flow nasal cannula, currently at 90% to maintain O2 sat at 92% . 12/10: looks good this morning. plan for bronch in or. remains on high flow NC @ 25 L/min 12/11: went for bronch yesterday. came back intubated because could not be weaned post-procedure to extubate. this morning, significantly somnolent. failed CPAP for apnea. 12/12: failed sbt yesterday for apnea and somnolence. this morning more awake. leukocytosis persists but afebrile. BALs growing gram negative rods, speciation to follow. Hospitalist Notes: 12/13: Seen in the room in the presence of nurse Miss Cox and her Daughter Mrs. Hdez Legal Guardian and her Mr. Kenji Darby gave me her phone number if she is needed [phone], improving condition. continue antibiotics, infection prevention specialist in to see the patient. 12/14: Patient stable in his bedroom, seen in the presence of his Daughter Mrs. Ketty Darby all questions answered, seen with Speech Therapy specialist and with nurse Miss Mcconnell, her Phosphorus was replaced, no nausea, vomit or diarrhea as per Doctor Green to transfer to Medical Floor, I agree. 12/15: Seen in his bedroom in the presence of his Son in Law Mr. Kenji Darby , he complained of Sputum production that most of the time the patient swallows his Sputum. discussed with nurse Miss Naye ross, no Nausea, vomit or diarrhea. Objective Vital Signs Date Time Temp Pulse Resp B/P Pulse Ox O2 Delivery O2 Flow Rate FiO2 12/15/16 07:48 93 Nasal Cannula 3.00 12/15/16 04:00 98.1 55 18 155/74 93 12/15/16 00:20 97.8 61 20 133/96 92 12/14/16 21:28 93 Nasal Cannula 4.00 12/14/16 20:00 80 12/14/16 20:00 Nasal Cannula 3.00 12/14/16 16:00 98.3 71 16 135/63 96 12/14/16 12:00 97.2 63 12 125/68 94 12/14/16 10:00 67 12/14/16 10:00 67 I/O 12/14/16 12/14/16 12/14/16 12/15/16 12/15/16 12/15/16 07:00 15:00 23:00 07:00 15:00 23:00 Intake Total 265 ml 580 ml Output Total 525 ml 350 ml Balance -260 ml 230 ml Intake Oral 0 ml 480 ml IV Total 265 ml 100 ml Output Urine Total 525 ml 350 ml # Voids 3 # Bowel Movements 0 1 5 Result Diagram: 12/14/1659 12/14/16 0959 Imaging Last Impressions Chest X-Ray 4/11/27 599 Signed Impressions: Service Date/Time: Wednesday, December 14, 2016 04:08 - CONCLUSION: Small right lower lobe infiltrate. Ablerto Mirza Jr., MD Abdomen X-Ray 12/09/16599 Signed Impressions: Service Date/Time: Friday, December 09, 2016 04:13 - CONCLUSION: 1. No acute findings. Colonic diverticula. Max Raymundo MD CT Angiography 12/06/16 0000 Signed Impressions: Service Date/Time: Tuesday, December 06, 2016 16:54 - CONCLUSION: 1. Negative for pulmonary embolus. 2. Dense consolidation left lower lobe with at least partial obstruction of the left lower lobe bronchus. This could be from mucoid impaction. A single airspace disease in the remainder of the lungs. 3. Partially calcified pleural plaques likely from prior asbestos exposure. Previous left rib fractures. Max Raymundo MD Procedures Endotracheal intubation and extubation. Other Results Laboratory Tests Test 12/14/16 09:59 White Blood Count 8.1 TH/MM3 Red Blood Count 4.47 MIL/MM3 Hemoglobin 14.2 GM/DL Hematocrit 41.8 % Mean Corpuscular Volume 93.6 FL Mean Corpuscular Hemoglobin 31.7 PG Mean Corpuscular Hemoglobin 33.8 % Concent Red Cell Distribution Width 13.7 % Platelet Count 136 TH/MM3 Mean Platelet Volume 7.8 FL Neutrophils (%) (Auto) 85.2 % Lymphocytes (%) (Auto) 9.8 % Monocytes (%) (Auto) 4.7 % Eosinophils (%) (Auto) 0.1 % Basophils (%) (Auto) 0.2 % Neutrophils # (Auto) 6.9 TH/MM3 Lymphocytes # (Auto) 0.8 TH/MM3 Monocytes # (Auto) 0.4 TH/MM3 Eosinophils # (Auto) 0.0 TH/MM3 Basophils # (Auto) 0.0 TH/MM3 CBC Comment AUTO DIFF Differential Total Cells 100 Counted Neutrophils % (Manual) 90 % Lymphocytes % 4 % Monocytes % 6 % Neutrophils # (Manual) 7.3 TH/MM3 Differential Comment FINAL DIFF MANUAL Platelet Estimate LOW Platelet Morphology Comment NORMAL Red Cell Morphology Comment NORMAL Sodium Level 136 MEQ/L Potassium Level 3.8 MEQ/L Chloride Level 98 MEQ/L Carbon Dioxide Level 28.5 MEQ/L Anion Gap 10 MEQ/L Blood Urea Nitrogen 24 MG/DL Creatinine 0.80 MG/DL Estimat Glomerular Filtration 92 ML/MIN Rate Random Glucose 127 MG/DL Calcium Level 8.5 MG/DL Phosphorus Level 1.7 MG/DL Magnesium Level 2.4 MG/DL Objective Remarks GENERAL: No acute distress. SKIN: Warm and dry. HEAD: Normocephalic. EYES: No scleral icterus. No injection or drainage. NECK: trachea midline. No JVD. CARDIOVASCULAR: Regular rate and rhythm. RESPIRATORY: Decreased breath sounds bilateral. No Wheezing or crackles. GASTROINTESTINAL: Abdomen soft, non-tender, nondistended. MUSCULOSKELETAL: No cyanosis, or edema. NEUROLOGY: Alert and oriented in person, Pleasantly demented. A/P Assessment and Plan 1. Acute hypercapnic and hypoxemic respiratory failure. 2. COPD exacerbation. 3. Hypertension. 4. Dementia. 5. Hyperlipidemia. 6. History of aspiration pneumonia. 7. History of arthritis. 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 GERD 10. Esophageal diverticulum 11. BPH 12. Mild ileus Plan Neuro: Monitor neuro status closely and avoid long acting sedatives. Continue home meds Depakote, and Lexapro. fentanyl for goal RASS 0,currently on hold. Pulm: Wean down oxygen as js and maintain sats >92%. Bronchodilators, Pulmicort nebulizers q. 12, Symbicort 160/4.5 2puffs q 12 hours. Solu-Medrol 60 milligrams IV q. 8. SBT today. will pursue extubation if he passes. CTA chest: Negative for PE. Dense consolidation left lower lobe with at least partial obstruction of the left lower lobe bronchus. This could be from mucoid impaction. A single airspace disease in the remainder of the lungs. Partially calcified pleural plaques likely from prior asbestos exposure Pulm eval patient is likely high risk for bronch given his resp status. Pulmonary consulted-Dr. Link Bettencourt s/p elective bronchoscopy 12/[address] Baker. CV: Monitor HR and BP and maintain MAP >65mmHg. : Monitor renal function, intake and output and electrolyte replacement per protocol. Continue Paris catheter secondary to BPH, condom catheter attempted, noted retention doxazosin for bph. plan to remove paris catheter tomorrow. GI: TF currently on hold due to SBT and possible extubation., on Pepcid 20 mg q. 12. 12/09 KUB abdomen -normal bowel gas pattern, no evidence of obstruction or free air GI consulted-Dr. Reaves, metoclopramide added to medication regimen, the patient continues on MiraLAX, senna and Colace ID: Continue with abx(Cefepime and Levaquin) and monitor for signs of infection ( fever and WBCs). Flagyl added per pulmonary Sputum culture 12/04 normal respiratory alejandra. Strep pneumoniae and Legionella urinary antigens negative. Heme: Monitor CBC. Endo: SSI with Accu-Chek q. 4 hour for glycemic control GI prophylaxis with Pepcid 20 mg q. 12. DVT prophylaxis with SCDs and SQH. Dispo: remain in the ICU. OVERALL IMPRESSION: severe chronic lung disease now with mechanical ventilation and possible pneumonia vs. exacerbation. given comorbid lung disease, we may not be able to successfully separate him from ventilator. will attempt daily SBTs. I have discussed these risks with his daughter at bedside. Eliceo Judge MD Dec 12, 2016 07:55 Addendum: Eliceo Judge MD on 12/12/16 @ 17:55 successfully extubated. doing well. nursing bedside swallow eval and advance diet. OOB, PT consult. would keep in ICU at minimum overnight. will re-eval in AM. if he continues to improve, might be able to leave ICU tomorrow. will consult hospitalist service. Medications and IVs Current Medications Medications (Trade) Dose Ordered Sig/Dank Route Start Time Stop Time Status Last Admin Miscellaneous Information Patient in critical care unit? Ass... [id number] XX 12/03/16 21:45 (Pepcid) 20 mg Q12HR PO 12/04/16 09:00 12/14/16 20:39 (Norvasc) 5 mg DAILY PO 12/04/16 09:00 Hold 12/06/16 10:40 Divalproex Sodium 250 mg 250 mg DAILY PO 12/04/16 09:00 Hold 12/10/16 09:10 (Maxipime Inj/NS Inj) 100 ml @ 200 mls/hr Q12HR IV 12/04/16 09:00 12/14/16 20:41 (Lactinex) 1 tab TID PO 12/04/16 09:00 12/14/16 16:52 (SEROquel) 25 mg HS PO 12/04/16 21:00 12/14/16 20:39 (Lexapro) 5 mg DAILY PO 12/04/16 09:00 12/14/16 09:11 Miscellaneous 1 ea 1 ea UNSCH PRN OTHER 12/04/16 08:30 (Levaquin 750 Mg Premix Inj) 150 ml @ 100 mls/hr Q24H IV 12/04/16 15:00 12/14/16 15:38 (Flonase Raghav Spr) 1 spray BID NASAL 12/05/16 13:00 12/14/16 09:10 (Symbicort 160-4.5 Inh) 2 puff Q12HR INH 12/06/16 21:00 12/14/16 09:10 (D50w (Vial) Inj) 25 ml UNSCH PRN IV PUSH 12/06/16 15:30 (NovoLIN R SUPPLEMENTAL SCALE) 1 Q4H SQ 12/06/16 16:00 12/14/16 20:00 (Miralax) 17 gm DAILY PO 12/08/16 11:45 12/13/16 08:54 Metoclopramide HCl 5 mg 5 mg Q8HR IV PUSH 12/08/16 14:00 12/15/16 05:58 (Flagyl 500 Mg Inj) 100 ml @ 100 mls/hr Q8H IV 12/08/16 14:00 12/15/16 05:58 Senna/Docusate Sodium 1 tab 1 tab BID PO 12/09/16 09:00 12/14/16 20:39 (D5W-1/2 NS 1000 ml Inj) 1,000 ml @ 0 mls/hr Q0M IV 12/09/16 12:14 (Cardura) 2 mg DAILY PO 12/11/16 20:00 12/14/16 09:11 (Depakote Sprinkles) 125 mg BID PO 12/11/16 21:00 12/14/16 09:11 (SoluMEDROL INJ) 40 mg BID IV PUSH 12/13/16 21:00 12/14/16 20:38 A/P Assessment and Plan 1. VDRF Improved as per Critical care as Acute Hypercapnic and Hypoxemic Respiratory failure continue Bronchodilator, Mucolytic, incentive spirometry, on Symbicort every 12 hours, Solu Medrol, Just extubated yesterday, CTA negative for PE, infection prevention specialist following, Dr Baker status post Bronchoscopy 12/10. recommended by infection prevention specialist to continue antibiotics titrate Steroids. new CXR from yesterday has small right lower lobe infiltrate. 2 COPD exacerbation improved. 3. Hypertension controlled. 4. Dementia stable 5. Hyperlipidemia by history 6. Aspiration Pneumonia on Cefepime and Levaquin, Flagyl added per infection prevention specialist, Sputum culture 12/04 normal respiratory alejandra, Strep Pneumoniae and Legionella urinary antigens negative. 7. OA by history 8. GERD on Gastric protection. 9. Calcified Pleural Plaques likely from prior asbestos exposure 10. Mild Ileus GI specialist Following. Dr. Bhavesh Narayan added metoclopramide, MiraLAX, Senna and Colace 11. Seizure disorder on hold his Depakote due to Encephalopathy 12. Hypophosphatemia corrected GI prophylaxis with Pepcid 20 mg q. 12. DVT prophylaxis with SCDs and Heparin. discussed in the room with patient, nurse Miss Yancey and with his Son in law in the room Mr. Kenji Darby. all questions answered to the best of my abilities. Discharge Planning when clear by Specialists Michael Espinoza MD Dec 15, 2016 08:18
[2016-12-15] MEDS: BUDESONIDE-FORMOTEROL 160/4.5 MCG INHALER INH SCH ×2 (09:00→20:36)
[2016-12-15] MEDS: DOCUSATE SODIUM 50 MG/SENNA 8.6 MG TAB PO SCH ×2 (09:00→21:00)
[2016-12-15] MEDS: FLUTICASONE PROPIONATE 50 MCG/ACT 16 GM NASAL SPRAY NASAL SCH ×2 (09:00→20:36)
[2016-12-15] MEDS: POLYETHYLENE GLYCOL 17 GM PKG PO SCH (09:00)
[2016-12-15] MEDS: DOXAZOSIN MESYLATE 2 MG TAB PO SCH (09:59)
[2016-12-15] MEDS: ESCITALOPRAM OXALATE 10 MG TAB PO SCH (09:59)
[2016-12-15] MEDS: FAMOTIDINE 20 MG TAB PO SCH ×2 (09:59→20:31)
[2016-12-15] MEDS: CEFEPIME INJ 2,000 MG in SODIUM CHLORIDE 0.9% INJ 100 ML IV SCH (10:00)
[2016-12-15] MEDS: LACTOBACILLUS ACIDOPHILUS TAB PO SCH ×3 (10:00→16:27)
[2016-12-15] MEDS: DIVALPROEX SODIUM SPRINKLES 125 MG CAP PO SCH ×2 (10:00→20:31)
[2016-12-15] MEDS: methylPREDNISolone SOD SUCC 40 MG/1 ML VIAL IV PUSH SCH (10:00)
--- NOTE | 2016-12-15 10:32 | MP ---
cc: ANGIE BAKER DATE OF SURGERY 12/10/2016 PROCEDURE Fiberoptic bronchoscopy with brushings, washings and lavage. PREOPERATIVE DIAGNOSIS Atelectasis and pneumonia left lower lobe. POSTOPERATIVE DIAGNOSES Atelectasis and pneumonia left lower lobe. Mucous plugging and a mucus impaction and endobronchitis. ANESTHESIA General. SURGEON Dr. Bessy Baker PROCEDURE AND FINDINGS The patient was intubated under general anesthesia. Following this the Olympus IT-180 bronchoscope was used to visualize the bronchi. The scope was advanced via the endotracheal tube into the trachea. Trachea and anita appeared normal. The scope was then advanced into the right mainstem and right upper lobe segmental bronchi. These bronchi demonstrated thick mucopurulent secretions and these were suctioned out. The underlying bronchi showed moderate endobronchitis. Next, the right middle and lower lobe segmental bronchi were visualized. The right middle lobe bronchi demonstrated moderate endobronchitis with mucoid secretions. These were suctioned out. There was mucosal edema and mucosal ridging of the bronchi. Right lower lobe segmental bronchi were visualized which demonstrated moderate endobronchitis with mucosal edema and thick mucopurulent secretions. These were suctioned out. Saline washings and lavage were done. The scope was then advanced into the left mainstem and left upper lobe segmental bronchi. The left upper lobe bronchi demonstrated thick mucopurulent secretions and mucous plugs which were suctioned out and lavage was carried out until clear. The underlying bronchi demonstrated moderate to severe endobronchitis with mucosal edema and ridging. The left lower lobe bronchi was next visualized which showed further mucous plugs and mucopurulent secretions. These were suctioned out. Saline washings and lavage was carried out and the underlying bronchi demonstrated severe endobronchitis and mucosal edema. There was minimal bleeding observed which was controlled with saline washings and brushings were done from the left lower lobe for micro and cytology. The procedure was then terminated. The patient tolerated the procedure well. MD MARGARITO Freeman/GAIL /6:15 PM /10:25 AM
--- NOTE | 2016-12-15 13:02 | HHI.PR ---
Subjective Remarks Alert and up in a chair. Now on N/C at 3 L. CXR is better. Taking a PO diet. No SOB Objective Vital Signs Date Time Temp Pulse Resp B/P Pulse Ox O2 Delivery O2 Flow Rate FiO2 12/15/16 09:55 Nasal Cannula 3.00 12/15/16 08:07 56 12/15/16 08:00 98.9 55 20 146/68 91 12/15/16 07:48 93 Nasal Cannula 3.00 12/15/16 04:00 98.1 55 18 155/74 93 12/15/16 00:20 97.8 61 20 133/96 92 12/14/16 21:28 93 Nasal Cannula 4.00 12/14/16 20:00 80 12/14/16 20:00 Nasal Cannula 3.00 12/14/16 16:00 98.3 71 16 135/63 96 I/O 12/14/16 12/14/16 12/14/16 12/15/16 12/15/16 12/15/16 07:00 15:00 23:00 07:00 15:00 23:00 Intake Total 265 ml 580 ml Output Total 525 ml 350 ml Balance -260 ml 230 ml Intake Oral 0 ml 480 ml IV Total 265 ml 100 ml Output Urine Total 525 ml 350 ml # Voids 3 # Bowel Movements 0 1 5 Result Diagram: 12/14/16 0959 12/14/16 0959 Procedures Endotracheal intubation and extubation. Objective Remarks GENERAL: This elderly man is averagely built, in no distress. HEENT: Head is normocephalic. Pupils are reactive. Tongue is moist. Throat is clear. NECK: Supple. No bruits or thyroid enlargement. CHEST: Equal movements to percussion note, and Occ wheeze heard. HEART: The heart sounds are regular S1-S2 with no murmur. No S3 gallop. ABDOMEN: The abdomen is soft, nontender. No organomegaly. Bowel sounds are active. EXTREMITIES: No edema or cyanosis. No clubbing. Peripheral pulses are diminished. Reflexes are 1+ with no gross motor deficits. NEUROLOGIC: No deficit SKIN: No lesions noted. Assessment and Plan Assessment and Plan IMPRESSION 1. Hypercapnic respiratory failure. 2. COPD with acute exacerbation. 3. Basilar pneumonia and atelectasis. 4. Dementia. 5. History of hypertension. Plan : 1. Cont Duo Nebs qid 2. D/C IV Antibiotics and add Ceftin 500 mg BID X 7 days 3. Wean O2 to keep sat >92 4. OK to go to rehab 5. Cont anticoagulants. 6. IS at bedside qid 7. PT and OT evaluation 8. Taper prednisone to 10 mg daily x 7 Mary Ann Baker MD Dec 15, 2016 13:01
[2016-12-15] MEDS: LEVOFLOXACIN 750 MG PREMIX INJ 150 ML IV SCH (13:17)
[2016-12-15] MEDS: QUEtiapine FUMARATE 25 MG TAB PO SCH (20:31)
[2016-12-15] MEDS: CEFUROXIME AXETIL 500 MG TAB PO SCH (20:31)
[2016-12-15] MEDS: predniSONE 10 MG TAB PO SCH (20:31)
[2016-12-16] VITALS (7 sets, daily range): BP systolic 121–148; BP diastolic 59–66; PULSE 52–74; RESP 16–18; TEMP 97.6–98.4; O2SAT 92–96
[2016-12-16] MEDS: INSULIN NovoLIN REGULAR SUPPLEMENTAL SCALE SQ SCH ×4 (04:00→12:28)
[2016-12-16] MEDS: METOCLOPRAMIDE HCL 10 MG/2 ML VIAL IV PUSH SCH (06:06)
[2016-12-16] MEDS: DIVALPROEX SODIUM SPRINKLES 125 MG CAP PO SCH (08:49)
[2016-12-16] MEDS: CEFUROXIME AXETIL 500 MG TAB PO SCH (08:49)
[2016-12-16] MEDS: DOXAZOSIN MESYLATE 2 MG TAB PO SCH (08:50)
[2016-12-16] MEDS: predniSONE 10 MG TAB PO SCH (08:50)
[2016-12-16] MEDS: FAMOTIDINE 20 MG TAB PO SCH (08:50)
[2016-12-16] MEDS: ESCITALOPRAM OXALATE 10 MG TAB PO SCH (08:50)
[2016-12-16] MEDS: DOCUSATE SODIUM 50 MG/SENNA 8.6 MG TAB PO SCH (08:51)
[2016-12-16] MEDS: LACTOBACILLUS ACIDOPHILUS TAB PO SCH ×2 (08:52→13:00)
[2016-12-16] MEDS: POLYETHYLENE GLYCOL 17 GM PKG PO SCH (08:52)
[2016-12-16] MEDS: FLUTICASONE PROPIONATE 50 MCG/ACT 16 GM NASAL SPRAY NASAL SCH (09:00)
[2016-12-16] MEDS: BUDESONIDE-FORMOTEROL 160/4.5 MCG INHALER INH SCH (09:00)
[2016-12-16] MEDS: RESP: BUDESONIDE 0.5 MG/2 ML NEB NEB SCH (10:08)
--- NOTE | 2016-12-16 14:26 | HHI.PR ---
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 He was admitted to [facility] on December 04 after he was transferred from [facility] per the daughter's request for COPD exacerbation and pneumonia. The patient was placed on bronchodilators and broad-spectrum antibiotics. A chest x-ray on admission showed bibasilar consolidation more pronounced on the left. Repeat chest x-ray was performed yesterday which showed resolution of the basilar consolidation. However, diffuse interstitial prominence was noted seen throughout the left lung. The patient had an ABG on BiPAP 15/8 at 100% last night which showed mild acute hypercapnic respiratory and hypoxemic acidosis with a pH of 7.32, CO2 52, pAO2 81, bicarb 26 and saturation of 91%. He was taken off BiPAP early this morning and is currently on 50% Ventimask with saturation of 89% to 90%. The patient is awake and alert. He is out of bed and sitting in chair in mild distress. He is afebrile. Most of the history was obtained from reviewing medical records and from my discussion with the daughter. Patient is a poor historian due to his underlying dementia. He is currently being treated for pneumonia with cefepime and Levaquin. 12/07 Patient was on BIPAP 10/5 with 40% FIO2 overnight. CTA chest showed no PE. 12/08 No acute events overnight. Afebrile. Off BIPAP. 12/09 Tmax 98.1 leukocytosis, and bandemia resolved this a.m.. Flagyl was added to antibiotic medication regimen. KUB was performed this morning noting normal gas pattern no evidence of obstruction. Pharmacological DVT prophylaxis discontinued, the patient continues with mechanical, SCDs. The patient continues on high flow nasal cannula, currently at 90% to maintain O2 sat at 92% . 12/10: looks good this morning. plan for bronch in or. remains on high flow NC @ 25 L/min 12/11: went for bronch yesterday. came back intubated because could not be weaned post-procedure to extubate. this morning, significantly somnolent. failed CPAP for apnea. 12/12: failed sbt yesterday for apnea and somnolence. this morning more awake. leukocytosis persists but afebrile. BALs growing gram negative rods, speciation to follow. Hospitalist Notes: 12/13: Seen in the room in the presence of nurse Miss Cox and her Daughter Mrs. Hdez Legal Guardian and her Mr. Kenji Darby gave me her phone number if she is needed [phone], improving condition. continue antibiotics, automation specialist in to see the patient. 12/14: Patient stable in his bedroom, seen in the presence of his Daughter Mrs. Ketty Darby all questions answered, seen with Speech Therapy specialist and with nurse Miss Mcconnell, her Phosphorus was replaced, no nausea, vomit or diarrhea as per Doctor Green to transfer to Medical Floor, I agree. 12/15: Seen in his bedroom in the presence of his Son in Law Mr. Kenji Darby , he complained of Sputum production that most of the time the patient swallows his Sputum. discussed with nurse Miss Naye ross, no Nausea, vomit or diarrhea. 12/16: Seen in his bedroom in the presence of his Daughter Mrs. Ketty Darby, he already was recommended for discharge by automation specialist, he is eating in his bedroom, no complaint, no Nausea, vomit or diarrhea asking for GERD medicine. Objective Vital Signs Date Time Temp Pulse Resp B/P Pulse Ox O2 Delivery O2 Flow Rate FiO2 12/16/16 12:00 97.6 74 16 121/59 93 12/16/16 10:11 95 Nasal Cannula 4.00 12/16/16 08:00 97.8 52 16 125/59 92 12/16/16 04:00 98.4 53 16 148/66 96 12/16/16 00:00 98.1 57 18 148/65 96 12/15/16 20:00 73 12/15/16 20:00 73 12/15/16 20:00 Nasal Cannula 4.00 12/15/16 20:00 98.1 67 18 130/60 95 12/15/16 19:11 94 Nasal Cannula 4.00 12/15/16 16:00 97.4 75 20 110/58 93 I/O 12/15/16 12/15/16 12/15/16 12/16/16 12/16/16 12/16/16 07:00 15:00 23:00 07:00 15:00 23:00 Intake Total 480 ml 360 ml 0 ml Balance 480 ml 360 ml 0 ml Intake Oral 480 ml 360 ml 0 ml # Voids 3 3 2 2 # Bowel Movements 5 2 1 1 Result Diagram: 12/14/1659 12/14/16958 Imaging Last Impressions Chest X-Ray 12/14/16599 Signed Impressions: Service Date/Time: Wednesday, December 14, 2016 04:08 - CONCLUSION: Small right lower lobe infiltrate. Alberto Mirza Jr., MD Abdomen X-Ray 12/09/16599 Signed Impressions: Service Date/Time: Friday, December 09, 2016 04:13 - CONCLUSION: 1. No acute findings. Colonic diverticula. Max Raymundo MD CT Angiography 12/06/16 0000 Signed Impressions: Service Date/Time: Tuesday, December 06, 2016 16:54 - CONCLUSION: 1. Negative for pulmonary embolus. 2. Dense consolidation left lower lobe with at least partial obstruction of the left lower lobe bronchus. This could be from mucoid impaction. A single airspace disease in the remainder of the lungs. 3. Partially calcified pleural plaques likely from prior asbestos exposure. Previous left rib fractures. Max Raymundo MD Procedures Endotracheal intubation and extubation. Other Results Laboratory Tests Test 12/14/16 09:59 White Blood Count 8.1 TH/MM3 Red Blood Count 4.47 MIL/MM3 Hemoglobin 14.2 GM/DL Hematocrit 41.8 % Mean Corpuscular Volume 93.6 FL Mean Corpuscular Hemoglobin 31.7 PG Mean Corpuscular Hemoglobin 33.8 % Concent Red Cell Distribution Width 13.7 % Platelet Count 136 TH/MM3 Mean Platelet Volume 7.8 FL Neutrophils (%) (Auto) 85.2 % Lymphocytes (%) (Auto) 9.8 % Monocytes (%) (Auto) 4.7 % Eosinophils (%) (Auto) 0.1 % Basophils (%) (Auto) 0.2 % Neutrophils # (Auto) 6.9 TH/MM3 Lymphocytes # (Auto) 0.8 TH/MM3 Monocytes # (Auto) 0.4 TH/MM3 Eosinophils # (Auto) 0.0 TH/MM3 Basophils # (Auto) 0.0 TH/MM3 CBC Comment AUTO DIFF Differential Total Cells 100 Counted Neutrophils % (Manual) 90 % Lymphocytes % 4 % Monocytes % 6 % Neutrophils # (Manual) 7.3 TH/MM3 Differential Comment FINAL DIFF MANUAL Platelet Estimate LOW Platelet Morphology Comment NORMAL Red Cell Morphology Comment NORMAL Sodium Level 136 MEQ/L Potassium Level 3.8 MEQ/L Chloride Level 98 MEQ/L Carbon Dioxide Level 28.5 MEQ/L Anion Gap 10 MEQ/L Blood Urea Nitrogen 24 MG/DL Creatinine 0.80 MG/DL Estimat Glomerular Filtration 92 ML/MIN Rate Random Glucose 127 MG/DL Calcium Level 8.5 MG/DL Phosphorus Level 1.7 MG/DL Magnesium Level 2.4 MG/DL Objective Remarks GENERAL: No acute distress. SKIN: Warm and dry. HEAD: Normocephalic. EYES: No scleral icterus. No injection or drainage. NECK: trachea midline. No JVD. CARDIOVASCULAR: Regular rate and rhythm. RESPIRATORY: Decreased breath sounds bilateral. No Wheezing or crackles. GASTROINTESTINAL: Abdomen soft, non-tender, nondistended. MUSCULOSKELETAL: No cyanosis, or edema. NEUROLOGY: Alert and oriented in person, Pleasantly demented. A/P Assessment and Plan 1. Acute hypercapnic and hypoxemic respiratory failure. 2. COPD exacerbation. 3. Hypertension. 4. Dementia. 5. Hyperlipidemia. 6. History of aspiration pneumonia. 7. History of arthritis. 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 GERD 10. Esophageal diverticulum 11. BPH 12. Mild ileus Plan Neuro: Monitor neuro status closely and avoid long acting sedatives. Continue home meds Depakote, and Lexapro. fentanyl for goal RASS 0,currently on hold. Pulm: Wean down oxygen as js and maintain sats >92%. Bronchodilators, Pulmicort nebulizers q. 12, Symbicort 160/4.5 2puffs q 12 hours. Solu-Medrol 60 milligrams IV q. 8. SBT today. will pursue extubation if he passes. CTA chest: Negative for PE. Dense consolidation left lower lobe with at least partial obstruction of the left lower lobe bronchus. This could be from mucoid impaction. A single airspace disease in the remainder of the lungs. Partially calcified pleural plaques likely from prior asbestos exposure Pulm eval patient is likely high risk for bronch given his resp status. Pulmonary consulted-Dr. Link Bettencourt s/p elective bronchoscopy 12/[address] Baker. CV: Monitor HR and BP and maintain MAP >65mmHg. : Monitor renal function, intake and output and electrolyte replacement per protocol. Continue Paris catheter secondary to BPH, condom catheter attempted, noted retention doxazosin for bph. plan to remove paris catheter tomorrow. GI: TF currently on hold due to SBT and possible extubation., on Pepcid 20 mg q. 12. 12/09 KUB abdomen -normal bowel gas pattern, no evidence of obstruction or free air GI consulted-Dr. Reaves, metoclopramide added to medication regimen, the patient continues on MiraLAX, senna and Colace ID: Continue with abx(Cefepime and Levaquin) and monitor for signs of infection ( fever and WBCs). Flagyl added per pulmonary Sputum culture 12/04 normal respiratory alejandra. Strep pneumoniae and Legionella urinary antigens negative. Heme: Monitor CBC. Endo: SSI with Accu-Chek q. 4 hour for glycemic control GI prophylaxis with Pepcid 20 mg q. 12. DVT prophylaxis with SCDs and SQH. Dispo: remain in the ICU. OVERALL IMPRESSION: severe chronic lung disease now with mechanical ventilation and possible pneumonia vs. exacerbation. given comorbid lung disease, we may not be able to successfully separate him from ventilator. will attempt daily SBTs. I have discussed these risks with his daughter at bedside. Eliceo Judge MD Dec 12, 2016 07:55 Addendum: Eliceo Judge MD on 12/12/16 @ 17:55 successfully extubated. doing well. nursing bedside swallow eval and advance diet. OOB, PT consult. would keep in ICU at minimum overnight. will re-eval in AM. if he continues to improve, might be able to leave ICU tomorrow. will consult hospitalist service. Medications and IVs Current Medications Medications (Trade) Dose Ordered Sig/Dank Route Start Time Stop Time Status Last Admin Miscellaneous Information Patient in critical care unit? Ass... [id number] XX 12/03/16 21:45 (Pepcid) 20 mg Q12HR PO 12/04/16 09:00 12/16/16 08:50 (Norvasc) 5 mg DAILY PO 12/04/16 09:00 Hold 12/06/16 10:40 (Depakote Er) 250 mg DAILY PO 12/04/16 09:00 Hold 12/10/16 09:10 (Lactinex) 1 tab TID PO 12/04/16 09:00 4/4/17 16:27 (SEROquel) 25 mg HS PO 12/04/16 21:00 12/15/16 20:31 (Lexapro) 5 mg DAILY PO 12/04/16 09:00 12/16/16 08:50 Miscellaneous 1 ea 1 ea UNSCH PRN OTHER 12/04/16 08:30 (Levaquin 750 Mg Premix Inj) 150 ml @ 100 mls/hr Q24H IV 12/04/16 15:00 12/15/16 13:17 (Flonase Raghav Spr) 1 spray BID NASAL 12/05/16 13:00 12/15/16 09:00 (Symbicort 160-4.5 Inh) 2 puff Q12HR INH 12/06/16 21:00 12/15/16 09:00 (D50w (Vial) Inj) 25 ml UNSCH PRN IV PUSH 12/06/16 15:30 (NovoLIN R SUPPLEMENTAL SCALE) 1 Q4H SQ 12/06/16 16:00 12/16/16 12:28 (Miralax) 17 gm DAILY PO 12/08/16 11:45 12/13/16 08:54 (Reglan Inj) 5 mg Q8HR IV PUSH 12/08/16 14:00 12/16/16 06:06 Senna/Docusate Sodium 1 tab 1 tab BID PO 12/09/16 09:00 12/14/16 20:39 (D5W-1/2 NS 1000 ml Inj) 1,000 ml @ 0 mls/hr Q0M IV 12/09/16 12:14 (Cardura) 2 mg DAILY PO 12/11/16 20:00 12/16/16 08:50 (Depakote Sprinkles) 125 mg BID PO 12/11/16 21:00 12/16/16 08:49 (Ceftin) 500 mg Q12HR PO 12/15/16 21:00 12/16/16 08:49 (Deltasone) 10 mg BID PO 12/15/16 21:00 12/16/16 08:50 A/P Assessment and Plan 1. VDRF Improved as per Critical care as Acute Hypercapnic and Hypoxemic Respiratory failure continue Bronchodilator, Mucolytic, incentive spirometry, on Symbicort every 12 hours, Solu Medrol, Just extubated yesterday, CTA negative for PE, automation specialist following, Dr Baker status post Bronchoscopy 12/10. recommended by automation specialist to continue antibiotics titrate Steroids. new CXR from yesterday has small right lower lobe infiltrate. automation specialist Doctor Samuel recommended to continue Bronchodilator, Ceftin 500 mg BID for seven days, Okay to go to Rehab. PT and OT Taper Prednisone to 10 mg daily for seven days. 2 COPD exacerbation improved. 3. Hypertension controlled. 4. Dementia stable 5. Hyperlipidemia by history 6. Aspiration Pneumonia on Cefepime and Levaquin, Flagyl added per automation specialist, Sputum culture 12/04 normal respiratory alejandra, Strep Pneumoniae and Legionella urinary antigens negative. will go on Ceftin 500 mg BID for seven days. 7. OA by history 8. GERD on Gastric protection. will continue Pepcid in [facility], 9. Calcified Pleural Plaques likely from prior asbestos exposure 10. Mild Ileus GI specialist Following. Dr. Bhavesh Narayan added metoclopramide, MiraLAX, Senna and Colace 11. Seizure disorder on hold his Depakote due to Encephalopathy 12. Hypophosphatemia corrected GI prophylaxis with Pepcid 20 mg q. 12. DVT prophylaxis with SCDs and Heparin. discussed in the room with patient, His Daughter Mrs. Ketty Darby and nurse Miss Cespedes all questions answered to the best of my abilities. Discharge Planning Discharge on [facility] for PT and Skilled Nurse. Michael Espinoza MD Dec 16, 2016 14:26
[2016-12-16] MEDS ORDERED: SYMB160A INH (14:39)
[2016-12-16] MEDS ORDERED: SPIRCAP INH (14:39)
[2016-12-16] MEDS ORDERED: CEFT500T3 PO (14:39)
[2016-12-16] MEDS ORDERED: PRED10 PO (14:39)
[2016-12-16] MEDS ORDERED: DIVA125C PO (14:39)
[2016-12-16] MEDS ORDERED: ESCI10TA PO (14:39)
[2016-12-16] MEDS ORDERED: QUET1TAB7 PO (14:39)
[2016-12-16] MEDS ORDERED: CARD2TAB PO (14:39)
[2016-12-16] MEDS ORDERED: LACT PO (14:39)
[2016-12-16] MEDS ORDERED: FAMO20TA2 PO (14:39)
--- NOTE | 2016-12-16 14:44 | HHI.DS ---
Discharge Summary Admission Date Dec 03, 2016 at 20:55 Discharge Date: Dec 16, 2016 Admitting Diagnosis (1) Pneumonia ICD Code: J18.9 Diagnosis: Principal (2) Diarrhea ICD Code: R19.7 Diagnosis: Secondary (3) Dysphagia ICD Code: R13.10 Diagnosis: Principal (4) Hiatal hernia ICD Code: K44.9 Diagnosis: Secondary (5) Ventilatory failure ICD Code: R06.89 Diagnosis: Principal (6) COPD exacerbation ICD Code: J44.1 Diagnosis: Principal Procedures Endotracheal Intubation and Extubation. Brief History - From Admission History from patient's daughter at the bedside, and transfer notes from [facility]. Patient was admitted to [facility] around November 25, 2016. He was transferred to our hospital last night December 03, 2016. Patient's daughter reported that patient was being managed there for COPD exacerbation with pneumonia. He was also requiring high FiO2 over there for his treatment. She states that he was usually on 10 L nasal cannula. At one point, in the beginning of his stay there, after he received Tessalon Perles for cough, he desaturated quite a bit that he ended up on BiPAP. She reports that also last night, he was saturating around 95-98% initially. He then had another type of cough medicine and ended up desaturating again. He was therefore briefly on BiPAP again. However prior to transfer to our hospital, they were in 4 to many his saturations do a decent level which is 5 L nasal cannular. Patient daughter was curious as to why he had pneumonia. She states that at the [facility] where he resides in [place], several residents where sick with pneumonia and had to be hospitalized. She is unsure whether he caught pneumonia from that. She also was worried about aspiration because he did have 3 times hospitalization for aspiration pneumonia when he was living on his own at another state before moving down to [place] with his daughter. She states that she has had trouble convincing staff members at [facility] to put him on the correct diet consistency. She is questioning whether he had aspiration episodes. Patient also had history of hiatal hernia which is about 4 cm per EGD report. This EGD was done during the hospitalization at [facility]. There was other findings of esophagitis and esophageal diverticulum. Daughter also reported that patient has quite significant hearing impairment. However when she took him to an ENT doctor for evaluation, it was found that he has quite a bit of fluid accumulation in his inner ears and was treated with steroids. She states that after a few days courses of steroids, his hearing would come back. Because of this, he was actually planned to have surgery with ENT doctor. She believes this was for eustachian tubes. However Patient's this surgery was delayed because of his current acute illness. She states that while being hospitalized at [facility], his hearing has gotten worse as well. She is wondering whether his pneumonia is related to these chronic fluid accumulation in his ears with sinus symptoms. Daughter also stated that patient was having severe diarrhea while at [facility]. This happened after getting antibiotics. She stated that she was told it smells like C. difficile as well. She stated he was receiving clindamycin. Patient was not having any Calles catheter there. He was urinating spontaneously. Patient daughter reports that patient's blood pressure was somewhat low borderline over there. However he was not requiring any vasopressors. Patient has history of dementia. He was on Namenda/Aricept combination medicine. She states that these medications were held initially while in hospital. This was resumed only about a day ago or so. She also reports that patient had echocardiogram and CT pulmonary angiogram there. As for as she knows, no abnormal findings. CBC/BMP: 12/14/16 0959 12/14/16 0959 Significant Findings Laboratory Tests Test 12/14/16 09:59 Red Blood Count 4.47 MIL/MM3 (4.50-5.90) Platelet Count 136 TH/MM3 (150-450) Neutrophils (%) (Auto) 85.2 % (16.0-70.0) Lymphocytes # (Auto) 0.8 TH/MM3 (1.0-4.8) Neutrophils % (Manual) 90 % (16-70) Lymphocytes % 4 % (9-44) Platelet Estimate LOW (NORMAL) Blood Urea Nitrogen 24 MG/DL (7-18) Random Glucose 127 MG/DL (74-106) Phosphorus Level 1.7 MG/DL (2.5-4.9) Imaging Last Impressions Chest X-Ray 12/14/16 0600 Signed Impressions: Service Date/Time: Wednesday, December 14, 2016 04:08 - CONCLUSION: Small right lower lobe infiltrate. Alberto Mirza Jr., MD Abdomen X-Ray 12/09/16 0600 Signed Impressions: Service Date/Time: Friday, December 09, 2016 04:13 - CONCLUSION: 1. No acute findings. Colonic diverticula. Max Raymundo MD CT Angiography 12/06/16 0000 Signed Impressions: Service Date/Time: Tuesday, December 06, 2016 16:54 - CONCLUSION: 1. Negative for pulmonary embolus. 2. Dense consolidation left lower lobe with at least partial obstruction of the left lower lobe bronchus. This could be from mucoid impaction. A single airspace disease in the remainder of the lungs. 3. Partially calcified pleural plaques likely from prior asbestos exposure. Previous left rib fractures. Max Raymundo MD PE at Discharge GENERAL: No acute distress. SKIN: Warm and dry. HEAD: Normocephalic. EYES: No scleral icterus. No injection or drainage. NECK: trachea midline. No JVD. CARDIOVASCULAR: Regular rate and rhythm. RESPIRATORY: Decreased breath sounds bilateral. No Wheezing or crackles. GASTROINTESTINAL: Abdomen soft, non-tender, nondistended. MUSCULOSKELETAL: No cyanosis, or edema. NEUROLOGY: Alert and oriented in person, Pleasantly demented. 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 He was admitted to [facility] on December 04 after he was transferred from [facility] per the daughter's request for COPD exacerbation and pneumonia. The patient was placed on bronchodilators and broad-spectrum antibiotics. A chest x-ray on admission showed bibasilar consolidation more pronounced on the left. Repeat chest x-ray was performed yesterday which showed resolution of the basilar consolidation. However, diffuse interstitial prominence was noted seen throughout the left lung. The patient had an ABG on BiPAP 15/8 at 100% last night which showed mild acute hypercapnic respiratory and hypoxemic acidosis with a pH of 7.32, CO2 52, pAO2 81, bicarb 26 and saturation of 91%. He was taken off BiPAP early this morning and is currently on 50% Ventimask with saturation of 89% to 90%. The patient is awake and alert. He is out of bed and sitting in chair in mild distress. He is afebrile. Most of the history was obtained from reviewing medical records and from my discussion with the daughter. Patient is a poor historian due to his underlying dementia. He is currently being treated for pneumonia with cefepime and Levaquin. 12/07 Patient was on BIPAP 10/5 with 40% FIO2 overnight. CTA chest showed no PE. 12/08 No acute events overnight. Afebrile. Off BIPAP. 12/09 Tmax 98.1 leukocytosis, and bandemia resolved this a.m.. Flagyl was added to antibiotic medication regimen. KUB was performed this morning noting normal gas pattern no evidence of obstruction. Pharmacological DVT prophylaxis discontinued, the patient continues with mechanical, SCDs. The patient continues on high flow nasal cannula, currently at 90% to maintain O2 sat at 92% . 12/10: looks good this morning. plan for bronch in or. remains on high flow NC @ 25 L/min 12/11: went for bronch yesterday. came back intubated because could not be weaned post-procedure to extubate. this morning, significantly somnolent. failed CPAP for apnea. 12/12: failed sbt yesterday for apnea and somnolence. this morning more awake. leukocytosis persists but afebrile. BALs growing gram negative rods, speciation to follow. Hospitalist Notes: 12/13: Seen in the room in the presence of nurse Miss Cox and her Daughter Mrs. Hdez Legal Guardian and her Mr. Kenji Darby gave me her phone number if she is needed [phone], improving condition. continue antibiotics, lab specialist in to see the patient. 12/14: Patient stable in his bedroom, seen in the presence of his Daughter Mrs. Ketty Darby all questions answered, seen with Speech Therapy specialist and with nurse Miss Mcconnell, her Phosphorus was replaced, no nausea, vomit or diarrhea as per Doctor Mirza to transfer to Medical Floor, I agree. 12/15: Seen in his bedroom in the presence of his Son in Law Mr. Kenji Darby , he complained of Sputum production that most of the time the patient swallows his Sputum. discussed with nurse Miss Naye ross, no Nausea, vomit or diarrhea. 12/16: Seen in his bedroom in the presence of his Daughter Mrs. Ketty Darby, he already was recommended for discharge by lab specialist, he is eating in his bedroom, no complaint, no Nausea, vomit or diarrhea asking for GERD medicine. Assessment and Plan 1. VDRF Improved as per Critical care as Acute Hypercapnic and Hypoxemic Respiratory failure continue Bronchodilator, Mucolytic, incentive spirometry, on Symbicort every 12 hours, Solu Medrol, Just extubated yesterday, CTA negative for PE, lab specialist following, Dr Baker status post Bronchoscopy 12/10. recommended by lab specialist to continue antibiotics titrate Steroids. new CXR from yesterday has small right lower lobe infiltrate. lab specialist Doctor Samuel recommended to continue Bronchodilator, Ceftin 500 mg BID for seven days, Okay to go to Rehab. PT and OT Taper Prednisone to 10 mg daily for seven days. 2 COPD exacerbation improved. 3. Hypertension controlled. 4. Dementia stable 5. Hyperlipidemia by history 6. Aspiration Pneumonia on Cefepime and Levaquin, Flagyl added per lab specialist, Sputum culture 12/04 normal respiratory alejandra, Strep Pneumoniae and Legionella urinary antigens negative. will go on Ceftin 500 mg BID for seven days. 7. OA by history 8. GERD on Gastric protection. will continue Pepcid in [facility], 9. Calcified Pleural Plaques likely from prior asbestos exposure 10. Mild Ileus GI specialist Following. Dr. Bhavesh Narayan added metoclopramide, MiraLAX, Senna and Colace 11. Seizure disorder on hold his Depakote due to Encephalopathy 12. Hypophosphatemia corrected GI prophylaxis with Pepcid 20 mg q. 12. DVT prophylaxis with SCDs and Heparin. discussed in the room with patient, His Daughter Mrs. Ketty Darby and nurse Miss Cespedes all questions answered to the best of my abilities. Discharge Planning Discharge on [facility] for PT and Skilled Nurse. Pt Condition on Discharge: Good Discharge Disposition: Disch w/ Home Health Serv Discharge Time: > 30 minutes Discharge Instructions DIET: Follow Instructions for: Heart Healthy Diet Speech Therapy-Diet Recommends: Honey Thickened Liquids, Pureed, Mechanical Soft Activities you can perform: Regular-No Restrictions Other Activity Instructions: Follow Physical Therapy recommendations Michael Espinoza MD Dec 16, 2016 14:44
--- NOTE | 2016-12-16 14:45 | HHI.FF ---
Face to Face Verification Diagnosis: (1) Hiatal hernia (2) Dysphagia (3) Diarrhea (4) Pneumonia (5) COPD exacerbation (6) Ventilatory failure Physical Therapy Order: Evaluate and Treat, Improve ambulation, Strength and gait training Home Health Nursing Order: Medical education Signs/symptoms of disease process Oxygen administration education Medication education-adverse effect Nursing assessment with vital signs I have seen patient Leonid Suresh on 12/16/16. My clinical findings support the need for the requested home health care services because: Ltd mobility - disease progression Deconditioned w/ increased weakness Impaired cognition/judgement I certify that my clinical findings support that this patient is homebound because: Impaired cognitive ability/safety Hx COPD- exertion dyspnea/weakness Unsteady gait/balance Unsafe to leave home unassisted Michael Espinoza MD Dec 16, 2016 14:45
== END 2016-12-16 17:32 | DRG 208 ==
LOC: HIMW 20:55 → N04B 12-14 11:44
PROVIDERS: ADMIT Internal Medicine; ATTEND Internal Medicine
PROC: 5A09457 Assistance with Respiratory Ventilation, 24-96 Consecutive Hours, Continuous Positive Airway Pressure (ICD-10-PCS; 2016-12-05)
PROC: 0BB68ZX Excision of Right Lower Lobe Bronchus, Via Natural or Artificial Opening Endoscopic, Diagnostic (ICD-10-PCS; 2016-12-10)
PROC: 0B968ZX Drainage of Right Lower Lobe Bronchus, Via Natural or Artificial Opening Endoscopic, Diagnostic (ICD-10-PCS; 2016-12-10)
PROC: 0BBB8ZX Excision of Left Lower Lobe Bronchus, Via Natural or Artificial Opening Endoscopic, Diagnostic (ICD-10-PCS; 2016-12-10)
PROC: 0BB88ZX Excision of Left Upper Lobe Bronchus, Via Natural or Artificial Opening Endoscopic, Diagnostic (ICD-10-PCS; 2016-12-10)
PROC: 5A1945Z Respiratory Ventilation, 24-96 Consecutive Hours (ICD-10-PCS; principal; 2016-12-10 17:34)
DX: J69.0 Pneumonitis due to inhalation of food and vomit (principal); J96.01 Acute respiratory failure with hypoxia; J96.02 Acute respiratory failure with hypercapnia; G93.40 Encephalopathy, unspecified; E87.2 Acidosis; J44.1 Chronic obstructive pulmonary disease with (acute) exacerbation; K56.7 Ileus, unspecified; F03.91 Unspecified dementia, unspecified severity, with behavioral disturbance; Q39.6 Congenital diverticulum of esophagus; J98.11 Atelectasis; Z99.81 Dependence on supplemental oxygen; R13.10 Dysphagia, unspecified; I10 Essential (primary) hypertension; K44.9 Diaphragmatic hernia without obstruction or gangrene; E78.5 Hyperlipidemia, unspecified; N40.0 Benign prostatic hyperplasia without lower urinary tract symptoms; M19.90 Unspecified osteoarthritis, unspecified site; H91.90 Unspecified hearing loss, unspecified ear; K21.0 Gastro-esophageal reflux disease with esophagitis; Z77.090 Contact with and (suspected) exposure to asbestos; T17.990A Other foreign object in respiratory tract, part unspecified in causing asphyxiation, initial encounter; G40.909 Epilepsy, unspecified, not intractable, without status epilepticus; K57.30 Diverticulosis of large intestine without perforation or abscess without bleeding; R04.0 Epistaxis; E83.39 Other disorders of phosphorus metabolism; Z87.01 Personal history of pneumonia (recurrent); Z87.891 Personal history of nicotine dependence
CPT/HCPCS: 36600; 71010; 71275; 74000; 76937; 80048; 81001; 82805; 82948; 83735; 84100; 85007; 85025; 85027; 85610; 87015; 87070; 87071; 87077; 87102; 87116; 87186; 87205; 87206; 87449; 87493; 87641; 88112; 88305; 88312; 93005; 94003; 94640; 94664; 94667; C9113; J0171; J0692; J1630; J1650; J1940; J1956; J2250; J2405; J2765; J2920; J3010; J7030; J7512; J7608; J7626; Q9967